=== PATIENT | male | born 1975 | race Caucasian/White ===

== ENCOUNTER 2017-11-12 14:29 | Emergency (ER) | payer MEDICAID, MEDICARE ==
[~2017-11-12] VITALS: Ht 195.6 cm; Wt 138.6 kg
[2017-11-12 16:23] VITALS: BP 150/89
[2017-11-12] MEDS ORDERED: SULF1TAB49 PO (16:58)
[2017-11-12] MEDS ORDERED: CEPH-572 PO (16:58)
== END 2017-11-12 17:21 | disposition home or self-care (01) ==
LOC: ER 14:30
DX: L02.612 Cutaneous abscess of left foot (principal); E10.9 Type 1 diabetes mellitus without complications; J45.909 Unspecified asthma, uncomplicated; F12.90 Cannabis use, unspecified, uncomplicated; Z90.49 Acquired absence of other specified parts of digestive tract; Z88.0 Allergy status to penicillin; Z79.2 Long term (current) use of antibiotics
CPT/HCPCS: 82948; 99283

== ENCOUNTER 2018-10-07 14:54 | Inpatient (IN) | payer MEDICAID ==
[~2018-10-07] VITALS: Ht 195.6 cm; Wt 159.1 kg
[2018-10-07] MEDS ORDERED: morphine 4 MG/ML inj SYRINge IV PRN (15:10)
[2018-10-07] MEDS ORDERED: ondansetron/PF 4mg/2ml inj IV ONE (15:10)
[2018-10-07 15:42] LABS: BASOPHILS % (AUTO) 0.3 % (0-1); EOSINOPHILS % (AUTO) 0.1 % (0-6); HEMATOCRIT 26.5 % (42.0-52.0); HEMOGLOBIN 8.9 g/dl (14.0-17.9); LYMPHOCYTES # (AUTO) 1.1 X10'3 (1.1-4.8); LYMPHOCYTES % (AUTO) 8.6 % (21-51); MEAN CORPUSCULAR HEMOGLOBIN 30.3 PG (27.0-31.0); MEAN CORPUSCULAR HGB CONC 33.6 g/dL (33.0-36.5); MEAN CORPUSCULAR VOLUME 90.3 FL (78-98); MEAN PLATELET VOLUME 8.1 FL (7.4-10.4); MONOCYTES # (AUTO) 1.3 X10'3 (0-0.9); MONOCYTES % (AUTO) 9.6 % (2-12); NEUTROPHILS # (AUTO) 10.7 X10'3 (1.8-7.7); NEUTROPHILS % (AUTO) 81.4 % (42-75); PLATELET COUNT 208 X10'3 (140-440); RED BLOOD COUNT 2.94 X10'6 (4.70-6.10); RED CELL DISTRIBUTION WIDTH 13.8 % (11.5-14.5); WHITE BLOOD COUNT 13.2 X10'3 (4.5-11.0)
[2018-10-07 15:59] LABS: ALANINE AMINOTRANSFERASE 18 U/L (12-78); ALBUMIN 1.7 G/DL (3.4-5.0); ALBUMIN/GLOBULIN RATIO 0.4 (1.1-1.5); ALKALINE PHOSPHATASE 68 IU/L (46-116); ANION GAP 11 (8-16); ASPARTATE AMINO TRANSFERASE 10 U/L (10-37); BILIRUBIN,TOTAL 0.5 MG/DL (0.1-1.0); BLOOD UREA NITROGEN 44 MG/DL (7-18); BUN/CREATININE RATIO 14.1 (5.4-32.0); CALCIUM 7.3 MG/DL (8.5-10.1); CHLORIDE 103 MMOL/L (99-107); CREATININE 3.13 MG/DL (0.60-1.10); GLUCOSE 328 MG/DL (70-104); POTASSIUM 4.5 MMOL/L (3.5-5.1); SODIUM 131 MMOL/L (135-145); TOTAL CARBON DIOXIDE 17.5 MMOL/L (24-32); TOTAL PROTEIN 6.2 G/DL (6.4-8.2); eGFR 22 ML/MIN
[2018-10-07] MEDS ORDERED: INSU100V9 SQ (16:25)
[2018-10-07] MEDS ORDERED: IPRA4AER IH (16:25)
[2018-10-07] MEDS ORDERED: LOSA50TA64 PO (16:25)
[2018-10-07] MEDS ORDERED: LIDO35.4 TOP (16:25)
[2018-10-07] MEDS ORDERED: FLUT1AER4 IH (16:25)
[2018-10-07] MEDS ORDERED: RANI-648 PO (16:25)
[2018-10-07] MEDS ORDERED: INSU100V5 SQ (16:25)
[2018-10-07] MEDS ORDERED: ATRIN IH (16:25)
[2018-10-07] MEDS ORDERED: ALBU8HFA PO (16:25)
[2018-10-07] MEDS ORDERED: potassium CL 10mEq/100ml bag 100 ML IV PRN ×2 (18:00)
[2018-10-07] MEDS ORDERED: magnesium 4gm in 100ml NS 100 ML IV PRN (18:00)
[2018-10-07] MEDS ORDERED: morphine 2 MG/ML inj. syringe IV PRN ×2 (18:00)
[2018-10-07] MEDS ORDERED: MESSAGE TO PHARMACY PO ONE ×2 (18:00)
[2018-10-07] MEDS ORDERED: magnesium Cl slow-release 64mg tablet PO PRN (18:00)
[2018-10-07] MEDS ORDERED: magnesium 2GM in 50ml NS 50 ML IV PRN (18:00)
[2018-10-07] MEDS ORDERED: glucagon, human recombinant 1mg kit SUBCUT PRN ×2 (18:00)
[2018-10-07] MEDS ORDERED: insulin Lispro (HumaLOG) vial - multi-dose SQ SCH (18:00)
[2018-10-07] MEDS ORDERED: dextrose ORAL solution 15 GM/59 ML bottle PO PRN ×4 (18:00)
[2018-10-07] MEDS ORDERED: potassium Cl 20 mEq SR tablet PO PRN ×2 (18:00)
[2018-10-07] MEDS ORDERED: dextrose 50%-water 50ml dispensing syringe IV PRN ×4 (18:00)
[2018-10-07 18:09] LABS: HEMOGLOBIN A1C 8.7 % (4.5-6.2)
[2018-10-07 18:42] LABS: LIPASE 985 U/L (73-393)
[2018-10-07] MEDS: vancomycin/NS 1 GM ADD-VANTAGE 250 ML IV SCH ×2 (19:05→21:25)
[2018-10-07] MEDS: normal saline 1000ml 1,000 ML IV SCH (19:05)
[2018-10-07] MEDS: ondansetron/PF 4mg/2ml inj IV PRN (19:30)
--- NOTE | 2018-10-07 19:49 | NUR ---
MOTHER CALLED FOR UPDATE. PHONE CALL TRANSFERRED TO BEDSIDE SO PT COULD UPDATE MOTHER. ADVISED MOTHER I WOULD BE HAPPY TO UPDATE HER BUT THAT I HAVE TO HAVE PTS CONSENT FIRST.
[2018-10-07] MEDS ORDERED: insulin glargine (Lantus) pen - multi-dose SQ SCH ×2 (21:00)
[2018-10-07] MEDS: heparin, porcine 5000 units/ml vial SQ SCH (21:35)
[2018-10-07 22:00] VITALS: BP 156/81
[2018-10-07] MEDS: pantoprazole 40mg Tablet.DR PO SCH (23:15)
[2018-10-08] MEDS: piperacillin/tazo 3.375gm/50ml 50 ML IV SCH ×3 (00:50→16:23)
[2018-10-08 03:00] VITALS: BP 139/74
[2018-10-08] MEDS: normal saline 1000ml 1,000 ML IV SCH ×3 (04:50→16:48)
[2018-10-08 05:18] LABS: BASOPHILS % (AUTO) 0.2 % (0-1); EOSINOPHILS % (AUTO) 0 % (0-6); HEMATOCRIT 27.2 % (42.0-52.0); HEMOGLOBIN 9.2 g/dl (14.0-17.9); LYMPHOCYTES # (AUTO) 1.2 X10'3 (1.1-4.8); LYMPHOCYTES % (AUTO) 10.4 % (21-51); MEAN CORPUSCULAR HEMOGLOBIN 30.3 PG (27.0-31.0); MEAN CORPUSCULAR HGB CONC 33.9 g/dL (33.0-36.5); MEAN CORPUSCULAR VOLUME 89.5 FL (78-98); MEAN PLATELET VOLUME 7.7 FL (7.4-10.4); MONOCYTES # (AUTO) 1.1 X10'3 (0-0.9); MONOCYTES % (AUTO) 9.8 % (2-12); NEUTROPHILS # (AUTO) 9.1 X10'3 (1.8-7.7); NEUTROPHILS % (AUTO) 79.6 % (42-75); PLATELET COUNT 230 X10'3 (140-440); RED BLOOD COUNT 3.04 X10'6 (4.70-6.10); WHITE BLOOD COUNT 11.4 X10'3 (4.5-11.0)
[2018-10-08 05:22] LABS: ALBUMIN 1.5 G/DL (3.4-5.0); ANION GAP 12 (8-16); BLOOD UREA NITROGEN 42 MG/DL (7-18); BUN/CREATININE RATIO 15.7 (5.4-32.0); CALCIUM 8.5 MG/DL (8.5-10.1); CHLORIDE 107 MMOL/L (99-107); CREATININE 2.68 MG/DL (0.60-1.10); GLUCOSE 327 MG/DL (70-104); MAGNESIUM 2.1 MG/DL (1.5-2.4); POTASSIUM 4.6 MMOL/L (3.5-5.1); SODIUM 135 MMOL/L (135-145); TOTAL CARBON DIOXIDE 15.7 MMOL/L (24-32); eGFR 26 ML/MIN
[2018-10-08 07:08] VITALS: BP 145/77
[2018-10-08] MEDS: K and/or MAG REPLACEMENT MC SCH (07:14)
[2018-10-08] MEDS: heparin, porcine 5000 units/ml vial SQ SCH ×2 (07:23→19:08)
[2018-10-08] MEDS: pantoprazole 40mg Tablet.DR PO SCH (07:23)
[2018-10-08] MEDS: insulin Lispro (HumaLOG) vial - multi-dose SQ SCH ×4 (08:39→21:58)
[2018-10-08 11:00] VITALS: BP 150/70
[2018-10-08] MEDS: albuterol 2.5 MG/3 ML nebule NEB PRN ×2 (11:16→19:35)
--- NOTE | 2018-10-08 11:48 | NUR ---
PAGER ID: [phone] MESSAGE: Raul Escobedo. Would you like me to put in an order for MRI? Please clarify. Leigh [phone]
--- NOTE | 2018-10-08 14:01 | NUR ---
PAGER ID: [phone] MESSAGE: [id number]. central lab technician called and the patient is over the weight limit for the MRI table so it cannot be done. Leigh Lara.
[2018-10-08 15:00] VITALS: BP 141/77
--- NOTE | 2018-10-08 15:19 | NUR ---
PRESSURE ULCER EDUCATION: DEFINITION: A pressure ulcer is an area of skin that breaks down when you stay in one position too long. The constant pressure against the skin reduces the blood flow to that area and the affected tissue dies. CAUSES: "Being bedridden or in a wheelchair "Fragile skin "Having a chronic condition, such as diabetes or vascular disease "Inability to move certain parts of your body without assistance "Older age "Incontinence of urine or stool SYMPTOMS: "A reddened area that DOES NOT turn white when pressed on - this can be the beginning of a pressure ulcer "A blister, deep sore or a crater - these can be advanced pressure ulcers FIRST AID: "Relieve the pressure on this area "Keep the area clean and dry "Call your primary doctor if you see any of the above symptoms "DO NOT massage the area "DO NOT use a donut shaped or ring shaped pillow- these actually interfere with the blood flow and cause complications PREVENTION: "Check for pressure ulcers everyday "Change position at least every two hours to relieve pressure "Use items that help relieve pressure- pillows, sheepskin, foam padding, and powders. "Keep skin clean and dry "Eat healthy well balanced meals "Exercise daily IF YOU SEE ANY OF THESE SYMPTOMS WHILE IN THE HOSPITAL - TELL YOUR NURSE IMMEDIATELY. IF YOU SEE ANY OF THESE SYMPTOMS WHILE AT HOME OR HAVE ANY QUESTIONS OR CONCERNS ABOUT PRESSURE ULCERS - CALL YOUR PRIMARY DOCTOR IMMEDIATELY. Addendum: 10/08/18 at 1519 by Tammie Mccarthy RN Amended: Links added.
--- NOTE | 2018-10-08 17:55 | NUR ---
DM consult, A1c of 8.7, patient seen at bedside and given written DM education handout with verbal review and referral to outpatient DM education class on Friday. Patient reports that he allows his BG to be elevated sometimes in order to fall asleep at night, strongly advised against this practice. Pt reports his A1c two years ago was over 17, compared to his A1c now he has improved it greatly. Encouraged patient to continue his insulin routine using, which is using both short and long acting insulin, pt also check BG before every meal and after every meal. Encouraged exercise for enhanced BG control. Patient has okay appetite, interested in cottage cheese with breakfast and milk with all meals for protein, d/w dietary. Encouraged PO intake of protein in view of his infection. Per MD note patient admitted with sepsis, right foot cellulitis, PRISCILA, h/o HTM and IDDM. Per H&P pt had transmetatarsal foot amputation six months ago, is reddened. Reports diarrhea for 4 days and unable to keep food down, will vomit or BM when he tries to eat, however does report that he is able to hold down food today and no BM yet today. Recommend: 1. continue carb controlled, heart healthy diet 2. cottage cheese with breakfast, yogurt with dinner, milk all meals 3. weight per rx Addendum: 10/08/18 at [address] Amended: Links added.
--- NOTE | 2018-10-08 17:58 | NUR ---
Rm 3015, Raul. Patient having trouble breathing, and coughing would like breathing treatment tamara. Thank you.
--- NOTE | 2018-10-08 18:19 | NUR ---
Problems reprioritized. Patient report given, questions answered & plan of care reviewed with Cindy PENNINGTON. Patient stable at transfer of care.
[2018-10-08 19:00] VITALS: BP 155/79
[2018-10-08] MEDS: lactobacillus rhamnosus 10,000 MMU CELLS/CAPSULE PO SCH (19:08)
[2018-10-08] MEDS: acetaminophen 325mg tablet PO PRN (19:18)
--- NOTE | 2018-10-08 21:48 | NUR ---
PAGER ID: [phone] MESSAGE: Patient Steve Carter in room 9421D states he normally takes 30 units of long acting Lantus when at home. Should I follow protocol or adhere to his normal administered units amount. [facility] Cindy [phone]
[2018-10-08] MEDS: insulin glargine (Lantus) pen - multi-dose SQ SCH (22:26)
[2018-10-08 23:00] VITALS: BP 150/72
[2018-10-09] MEDS: piperacillin/tazo 3.375gm/50ml 50 ML IV SCH ×3 (00:42→16:01)
[2018-10-09] MEDS: normal saline 1000ml 1,000 ML IV SCH ×3 (00:42→21:23)
[2018-10-09 03:00] VITALS: BP 156/77
[2018-10-09] MEDS: albuterol 2.5 MG/3 ML nebule NEB PRN ×3 (03:18→16:17)
[2018-10-09] MEDS: acetaminophen 325mg tablet PO PRN ×4 (04:00→22:09)
[2018-10-09 05:48] LABS: BASOPHILS % (AUTO) 0.3 % (0-1); EOSINOPHILS % (AUTO) 0.4 % (0-6); HEMATOCRIT 24.3 % (42.0-52.0); HEMOGLOBIN 8.3 g/dl (14.0-17.9); LYMPHOCYTES % (AUTO) 10.7 % (21-51); MEAN CORPUSCULAR HEMOGLOBIN 30.9 PG (27.0-31.0); MEAN PLATELET VOLUME 8.2 FL (7.4-10.4); MONOCYTES % (AUTO) 10.6 % (2-12); NEUTROPHILS # (AUTO) 7.6 X10'3 (1.8-7.7); PLATELET COUNT 205 X10'3 (140-440); RED BLOOD COUNT 2.67 X10'6 (4.70-6.10); RED CELL DISTRIBUTION WIDTH 14.1 % (11.5-14.5); WHITE BLOOD COUNT 9.8 X10'3 (4.5-11.0)
[2018-10-09 05:52] LABS: ALBUMIN 1.3 G/DL (3.4-5.0); ANION GAP 13 (8-16); BLOOD UREA NITROGEN 36 MG/DL (7-18); BUN/CREATININE RATIO 13.7 (5.4-32.0); CALCIUM 7.7 MG/DL (8.5-10.1); CHLORIDE 104 MMOL/L (99-107); CREATININE 2.62 MG/DL (0.60-1.10); GLUCOSE 254 MG/DL (70-104); MAGNESIUM 1.8 MG/DL (1.5-2.4); POTASSIUM 4.2 MMOL/L (3.5-5.1); SODIUM 131 MMOL/L (135-145); eGFR 27 ML/MIN
--- NOTE | 2018-10-09 06:00 | NUR ---
Patient refused VS.
--- NOTE | 2018-10-09 06:12 | NUR ---
MD notified about critical CO2 level of 14.0. MD ordered to continue to monitor as long as pt was asymptomatic.
--- NOTE | 2018-10-09 06:15 | NUR ---
Problems reprioritized. Patient report given, questions answered & plan of care reviewed with ADITI Baltazar.
--- NOTE | 2018-10-09 06:57 | NUR ---
Patient in room PCU 3015. I have received report from ADITI White and had the opportunity to ask questions and assume patient care.
--- NOTE | 2018-10-09 07:15 | NUR ---
Patient got up to commode to have large soft BM, not diarrhea. Pulled IV out in the process. Site not currently bleeding. Patient is a difficult IV start - PICC nurse paged. IV antibiotics scheduled, unable to give due to no IV.
[2018-10-09] MEDS: K and/or MAG REPLACEMENT MC SCH (08:00)
[2018-10-09] MEDS: pantoprazole 40mg Tablet.DR PO SCH (08:23)
[2018-10-09] MEDS: heparin, porcine 5000 units/ml vial SQ SCH ×2 (08:23→20:11)
[2018-10-09] MEDS: lactobacillus rhamnosus 10,000 MMU CELLS/CAPSULE PO SCH ×2 (08:23→20:10)
[2018-10-09] MEDS: insulin Lispro (HumaLOG) vial - multi-dose SQ SCH ×3 (08:41→19:05)
--- NOTE | 2018-10-09 09:10 | NUR ---
Dr Pearce would like to see wound on patient. Current dressing removed, assessed by MD. New dressing placed with alginate, 4x4, and gauze wrap. Pt c/o pain, wants tylenol instead of morphine for pain, notified MD of pt request. Noticed that patient has Zantec at bedside, educated pt of dangers of taking home medications while in the hospital including risk of interactions with medications administered here and that for patient to keep medication at bedside would need an order from MD, pt verbalized understanding. Notified primary RN as MD not immediately available, she will notify MD.
--- NOTE | 2018-10-09 09:30 | NUR ---
MD informed that patient has Zantac at bedside. Patient refuses to comply with policy that it is not allowed. MD aware.
--- NOTE | 2018-10-09 09:30 | NUR ---
informed that patient is positive for MRSA in his nares. No new orders recieved.
--- NOTE | 2018-10-09 09:44 | NUR ---
Message sent to - [phone] MESSAGE: Raul Huang # [phone] Requests Tylenol for pain. Currently only ordered for elevated temp. Has Morphine ordered but is refusing narcotics. Thank you - FAMILIA Baltazar, EXT# [phone]
[2018-10-09] MEDS ORDERED: famotidine 20mg tablet PO PRN (10:00)
--- NOTE | 2018-10-09 10:27 | NUR ---
IV antibiotics hung at this time due to no IV access earlier. Pharmacy called and notified.
[2018-10-09 11:00] VITALS: BP 131/65
--- NOTE | 2018-10-09 11:00 | NUR ---
I SPOKE TO PT REGARDING TAGAMET TABLETS HE HAS AT THE BEDSIDE. I INFORMED HIM THAT IS WAS REQUESTED TO DO SO BY DR OSBORN. HE INFORMED ME THAT HE IS NO LONGER TAKING THOSE AND HAS PUT THEM AWAY IN THE DRAWER. I EXPLAINED THE POLICY OF TAKING MEDICATION NOT PRESCRIBED BY THE DOCTOR IS NOT ALLOWED. HE STATED THAT HE UNDERSTOOD AND WILL NOT TAKE THEM. I WAS ACCOMPANIED BY PT ADITI HSIEH. Addendum: 10/09/18 at 1430 by Bobbi Douglas RN Amended: Links added.
--- NOTE | 2018-10-09 13:56 | NUR ---
PT 303 BS PRIOR TO LUNCH. PT COVERED WITH 27 UNITS OF HUMALOG POST LUNCH. I RECEIVED AN ANGRY PHONE CALL FROM PT MOTHER STATING THAT PT BS WAS 335 AND WE WE ARE REFUSING TO GIVE HIM ENOUGH INSULIN TO BRING IT DOWN. I INFORMED MOTHER THAT: THAT IS NOT TRUE, [facility] IS AN ACCREDITED DI[facility]ET[facility], RECOGNIZED BY THE [employer]. SHE THEN STATED IN A THREATENING MANNER " IM COMING DOWN THERE TOMORROW AND YOUR GONNA...". I THEN INFORMED HER TO COME HERE ANYTIME AND WE CAN DISCUSS IT FURTHER. Addendum: 10/09/18 at 1403 by Bobbi Douglas RN Amended: Links added.
--- NOTE | 2018-10-09 14:21 | NUR ---
Patient's bedside drawer is open and he has a roll of toilet paper in there that is soiled with feces. Roll was discarded and patient advised.
[2018-10-09 15:00] VITALS: BP 184/78
[2018-10-09 18:00] VITALS: BP 146/75
--- NOTE | 2018-10-09 18:09 | NUR ---
Problems reprioritized. Patient report given, questions answered & plan of care reviewed with ADITI White.
[2018-10-09] MEDS: budesonide 0.5mg/2ml UD nebule IH SCH (20:53)
[2018-10-09] MEDS: albuterol 2.5 MG/3 ML nebule NEB SCH (20:53)
[2018-10-09 22:00] VITALS: BP 149/70
[2018-10-09] MEDS: insulin glargine (Lantus) pen - multi-dose SQ SCH (22:13)
--- NOTE | 2018-10-10 | NUR ---
Patient called out for help. Assigned nurse quickly responded to patient. When nurse entered room two separate pools of blood was found to have oozed out of patient's right foot wound. The total amount of blood was approx. 100ccs. Patient stated that he had sat up to use the urinal and observed the pool of blood. Pt unsure how it began bleeding. Wound care dressing was replaced as ordered. Pt was educated to call nurse once again if bleeding was observed. Will continue to monitor closely.
[2018-10-10] MEDS: piperacillin/tazo 3.375gm/50ml 50 ML IV SCH ×3 (00:37→16:46)
[2018-10-10 02:00] VITALS: BP 111/70
[2018-10-10] MEDS: albuterol 2.5 MG/3 ML nebule NEB SCH ×4 (03:27→21:15)
[2018-10-10] MEDS: acetaminophen 325mg tablet PO PRN ×3 (03:52→18:50)
[2018-10-10] MEDS: normal saline 1000ml 1,000 ML IV SCH ×3 (05:20→18:48)
[2018-10-10 05:44] LABS: ALBUMIN 1.2 G/DL (3.4-5.0); ANION GAP 15 (8-16); BLOOD UREA NITROGEN 38 MG/DL (7-18); BUN/CREATININE RATIO 11.9 (5.4-32.0); CALCIUM 7.9 MG/DL (8.5-10.1); CHLORIDE 105 MMOL/L (99-107); GLUCOSE 205 MG/DL (70-104); POTASSIUM 4.3 MMOL/L (3.5-5.1); SODIUM 134 MMOL/L (135-145); eGFR 21 ML/MIN
[2018-10-10 05:51] LABS: TOTAL CARBON DIOXIDE 13.9 MMOL/L (24-32)
--- NOTE | 2018-10-10 05:57 | NUR ---
Adam observed patient place three medications on the table. Upon expectation, the three pills observed seemed to be slightly dissolved melatonin and hydralazine. Addendum: 10/10/18 at 0559 by Loida Trevino RN Wrong patient.
[2018-10-10 06:00] VITALS: BP 88/59
[2018-10-10 06:04] LABS: BASOPHILS # (AUTO) 0.1 X10'3 (0-0.2); BASOPHILS % (AUTO) 0.4 % (0-1); EOSINOPHILS # (AUTO) 0.1 X10'3 (0-0.9); EOSINOPHILS % (AUTO) 0.7 % (0-6); HEMATOCRIT 26.3 % (42.0-52.0); HEMOGLOBIN 8.6 g/dl (14.0-17.9); LYMPHOCYTES # (AUTO) 1.7 X10'3 (1.1-4.8); LYMPHOCYTES % (AUTO) 11.9 % (21-51); MEAN CORPUSCULAR HGB CONC 32.8 g/dL (33.0-36.5); MEAN CORPUSCULAR VOLUME 91.4 FL (78-98); MEAN PLATELET VOLUME 7.9 FL (7.4-10.4); MONOCYTES # (AUTO) 1.5 X10'3 (0-0.9); MONOCYTES % (AUTO) 10.9 % (2-12); NEUTROPHILS # (AUTO) 10.6 X10'3 (1.8-7.7); NEUTROPHILS % (AUTO) 76.1 % (42-75); PLATELET COUNT 271 X10'3 (140-440); RED BLOOD COUNT 2.88 X10'6 (4.70-6.10); RED CELL DISTRIBUTION WIDTH 14.3 % (11.5-14.5); WHITE BLOOD COUNT 13.9 X10'3 (4.5-11.0)
--- NOTE | 2018-10-10 06:09 | NUR ---
notified of critical CO2 level of 13.9.
--- NOTE | 2018-10-10 06:18 | NUR ---
Patient in room PCU 3015. I have received report from amanda PENNINGTON and had the opportunity to ask questions and assume patient care.
--- NOTE | 2018-10-10 06:46 | NUR ---
Problems reprioritized. Patient report given, questions answered & plan of care reviewed with ADITI De La Cruz.
[2018-10-10 07:00] VITALS: BP 122/64
[2018-10-10 07:12] LABS: PLATELET ESTIMATE NORMAL; TOTAL CELLS COUNTED 100
[2018-10-10 07:13] LABS: ANISOCYTOSIS 1+
[2018-10-10] MEDS: budesonide 0.5mg/2ml UD nebule IH SCH ×2 (07:25→09:29)
[2018-10-10] MEDS: pantoprazole 40mg Tablet.DR PO SCH (07:31)
[2018-10-10] MEDS: lactobacillus rhamnosus 10,000 MMU CELLS/CAPSULE PO SCH ×2 (07:31→19:06)
[2018-10-10] MEDS: heparin, porcine 5000 units/ml vial SQ SCH ×2 (07:31→19:06)
[2018-10-10] MEDS: K and/or MAG REPLACEMENT MC SCH (08:00)
[2018-10-10] MEDS: losartan 50mg tablet PO SCH (08:00)
[2018-10-10] MEDS: insulin Lispro (HumaLOG) vial - multi-dose SQ SCH ×3 (09:17→18:57)
[2018-10-10] MEDS: albuterol 2.5 MG/3 ML nebule NEB PRN ×2 (09:28→17:21)
[2018-10-10 15:00] VITALS: BP 131/63
--- NOTE | 2018-10-10 18:12 | NUR ---
Problems reprioritized. Patient report given, questions answered & plan of care reviewed with amanda PENNINGTON.
[2018-10-10] MEDS ORDERED: VANCOMYCIN LEVEL IV ONE (18:30)
[2018-10-10 19:00] VITALS: BP 150/78
--- NOTE | 2018-10-10 19:59 | NUR ---
Critical Vanco trough of 43.6. Pharmacy ordered to stop Vanco with only 172 mLs given out of the 300 mLs.
[2018-10-10] MEDS: insulin glargine (Lantus) pen - multi-dose SQ SCH (21:55)
[2018-10-10 23:00] VITALS: BP 146/68
[2018-10-11] MEDS: piperacillin/tazo 3.375gm/50ml 50 ML IV SCH ×3 (00:35→23:55)
[2018-10-11] MEDS: acetaminophen 325mg tablet PO PRN ×4 (00:36→19:17)
[2018-10-11] MEDS: albuterol 2.5 MG/3 ML nebule NEB SCH ×4 (01:44→20:58)
[2018-10-11 03:00] VITALS: BP 126/65
[2018-10-11] MEDS: albuterol 2.5 MG/3 ML nebule NEB PRN (04:45)
[2018-10-11] MEDS: normal saline 1000ml 1,000 ML IV SCH (05:15)
--- NOTE | 2018-10-11 06:20 | NUR ---
Problems reprioritized. Patient report given, questions answered & plan of care reviewed with ADITI De La Cruz.
--- NOTE | 2018-10-11 06:20 | NUR ---
When coming on shift patients IV fluids were infusing but arm is more swollen than the right arm. Patient stated that the IV sight is tender. I assessed it and turned off the fluids that were infusing. Doctor adriano was notified. Dr. Pearce wants a new extended in the Right arm.
--- NOTE | 2018-10-11 06:40 | NUR ---
Patient in room PCU 3015 B. I have received report from Cindy PENNINGTON and had the opportunity to ask questions and assume patient care.
--- NOTE | 2018-10-11 06:41 | NUR ---
Patient in room PCU 3015. I have received report from Cindy PENNINGTON and had the opportunity to ask questions and assume patient care.
[2018-10-11 06:50] LABS: ALBUMIN 1.3 G/DL (3.4-5.0); ANION GAP 15 (8-16); BLOOD UREA NITROGEN 49 MG/DL (7-18); BUN/CREATININE RATIO 13.7 (5.4-32.0); CHLORIDE 104 MMOL/L (99-107); CREATININE 3.57 MG/DL (0.60-1.10); GLUCOSE 215 MG/DL (70-104); MAGNESIUM 2.1 MG/DL (1.5-2.4); POTASSIUM 4.4 MMOL/L (3.5-5.1); SODIUM 133 MMOL/L (135-145); eGFR 19 ML/MIN
[2018-10-11 07:00] VITALS: BP 149/73
[2018-10-11] MEDS ORDERED: VANCOMYCIN LEVEL IV ONE (07:05)
--- NOTE | 2018-10-11 07:18 | NUR ---
promotional table spacer PAGER ID: [phone] MESSAGE: [id number] critical CO2 14.0 yesterday Co2 13.9 Dorothy PENNINGTON [phone]
[2018-10-11] MEDS: lactobacillus rhamnosus 10,000 MMU CELLS/CAPSULE PO SCH ×2 (07:49→19:05)
[2018-10-11] MEDS: pantoprazole 40mg Tablet.DR PO SCH (07:49)
[2018-10-11] MEDS: losartan 50mg tablet PO SCH (07:49)
[2018-10-11] MEDS: heparin, porcine 5000 units/ml vial SQ SCH ×2 (08:00→19:08)
[2018-10-11] MEDS: K and/or MAG REPLACEMENT MC SCH (08:00)
[2018-10-11] MEDS: budesonide 0.5mg/2ml UD nebule IH SCH ×2 (08:17→20:58)
[2018-10-11 10:15] LABS: BASOPHILS # (AUTO) 0.1 X10'3 (0-0.2); BASOPHILS % (AUTO) 0.5 % (0-1); EOSINOPHILS # (AUTO) 0.2 X10'3 (0-0.9); EOSINOPHILS % (AUTO) 1.2 % (0-6); HEMATOCRIT 23.3 % (42.0-52.0); HEMOGLOBIN 7.8 g/dl (14.0-17.9); LYMPHOCYTES % (AUTO) 12.7 % (21-51); MEAN CORPUSCULAR HEMOGLOBIN 30.5 PG (27.0-31.0); MEAN CORPUSCULAR HGB CONC 33.6 g/dL (33.0-36.5); MEAN CORPUSCULAR VOLUME 90.7 FL (78-98); MEAN PLATELET VOLUME 7.2 FL (7.4-10.4); MONOCYTES # (AUTO) 1.5 X10'3 (0-0.9); MONOCYTES % (AUTO) 9.6 % (2-12); PLATELET COUNT 307 X10'3 (140-440); RED BLOOD COUNT 2.56 X10'6 (4.70-6.10); RED CELL DISTRIBUTION WIDTH 14.5 % (11.5-14.5); WHITE BLOOD COUNT 15.7 X10'3 (4.5-11.0)
--- NOTE | 2018-10-11 10:53 | NUR ---
Notified MD of critical brizuela PAGER ID: [phone] MESSAGE: [id number] Matt Carter [facility] [place] of 46.6, FYIDez Feng 3140
[2018-10-11 11:00] VITALS: BP 161/78
[2018-10-11 11:02] LABS: PLATELET ESTIMATE NORMAL; TOTAL CELLS COUNTED 100
[2018-10-11 11:04] LABS: HYPOCHROMASIA 1+; POLYCHROMASIA 1+; ROULEAUX 1+; TOXIC GRANULATION 2+
[2018-10-11] MEDS: insulin Lispro (HumaLOG) vial - multi-dose SQ SCH ×3 (12:06→21:35)
--- NOTE | 2018-10-11 13:56 | NUR ---
reassessment: Pt PO improved to 50-75% avg meals past 2 days up from 0% on admit. LBM 10/10. Pending possible AKA since pt agrees per MD note. Currently NPO for I&D of R foot cellulitis drain site. Will monitor for additional protein needs post-op. Recommend: 1. continue carb controlled, heart healthy diet 2. cottage cheese with breakfast, yogurt with dinner, milk all meals 3. monitor for ONS needs post-op 4. weight per rx Addendum: 10/11/18 at [address] Amended: Links added.
[2018-10-11 15:00] VITALS: BP 148/75
[2018-10-11 18:00] VITALS: BP 146/70
--- NOTE | 2018-10-11 18:15 | NUR ---
Patient in room PCU 3015. I have received report from Dorothy PENNINGTON and had the opportunity to ask questions and assume patient care.
--- NOTE | 2018-10-11 18:45 | NUR ---
Problems reprioritized. Patient report given, questions answered & plan of care reviewed with Elsa Rebolledo.
[2018-10-11] MEDS: insulin glargine (Lantus) pen - multi-dose SQ SCH (21:35)
[2018-10-11 22:00] VITALS: BP 141/77
[2018-10-12] VITALS (16 sets, daily range): BP systolic 132–161; BP diastolic 8–80
[2018-10-12] MEDS: acetaminophen 325mg tablet PO PRN ×3 (02:11→19:24)
[2018-10-12] MEDS ORDERED: VANCOMYCIN LEVEL IV ONE (03:00)
[2018-10-12] MEDS: albuterol 2.5 MG/3 ML nebule NEB SCH ×4 (03:15→20:00)
--- NOTE | 2018-10-12 06:23 | NUR ---
Patient in room PCU 3015. I have received report from Elsa PENNINGTON and had the opportunity to ask questions and assume patient care.
--- NOTE | 2018-10-12 06:33 | NUR ---
Problems reprioritized. Patient report given, questions answered & plan of care reviewed with Dorothy PENNINGTON.
[2018-10-12 07:03] LABS: BASOPHILS # (AUTO) 0.1 X10'3 (0-0.2); BASOPHILS % (AUTO) 0.5 % (0-1); EOSINOPHILS # (AUTO) 0.2 X10'3 (0-0.9); EOSINOPHILS % (AUTO) 1.2 % (0-6); HEMATOCRIT 25.1 % (42.0-52.0); HEMOGLOBIN 8.4 g/dl (14.0-17.9); LYMPHOCYTES # (AUTO) 1.9 X10'3 (1.1-4.8); LYMPHOCYTES % (AUTO) 11.1 % (21-51); MEAN CORPUSCULAR HEMOGLOBIN 30.1 PG (27.0-31.0); MEAN CORPUSCULAR HGB CONC 33.4 g/dL (33.0-36.5); MEAN CORPUSCULAR VOLUME 90.2 FL (78-98); MONOCYTES # (AUTO) 1.4 X10'3 (0-0.9); MONOCYTES % (AUTO) 8.3 % (2-12); NEUTROPHILS # (AUTO) 13.2 X10'3 (1.8-7.7); NEUTROPHILS % (AUTO) 78.9 % (42-75); PLATELET COUNT 361 X10'3 (140-440); RED BLOOD COUNT 2.79 X10'6 (4.70-6.10); RED CELL DISTRIBUTION WIDTH 14.8 % (11.5-14.5); WHITE BLOOD COUNT 16.8 X10'3 (4.5-11.0)
[2018-10-12] MEDS: lactobacillus rhamnosus 10,000 MMU CELLS/CAPSULE PO SCH ×2 (07:06→19:30)
[2018-10-12] MEDS: pantoprazole 40mg Tablet.DR PO SCH (07:06)
[2018-10-12] MEDS: losartan 50mg tablet PO SCH (07:06)
[2018-10-12] MEDS: piperacillin/tazo 3.375gm/50ml 50 ML IV SCH ×3 (07:06→17:13)
--- NOTE | 2018-10-12 07:10 | NUR ---
Dr. Pearce is aware of the critical CO2 of 13.4 today spoke in person at nurses station.
[2018-10-12] MEDS: budesonide 0.5mg/2ml UD nebule IH SCH ×2 (07:55→20:00)
[2018-10-12] MEDS: K and/or MAG REPLACEMENT MC SCH (08:00)
[2018-10-12] MEDS: heparin, porcine 5000 units/ml vial SQ SCH ×2 (08:00→19:30)
[2018-10-12 08:02] LABS: PLATELET ESTIMATE NORMAL; POLYCHROMASIA 1+; ROULEAUX 1+; TOTAL CELLS COUNTED 100; TOXIC GRANULATION 3+
[2018-10-12 08:03] LABS: HYPOCHROMASIA 1+
[2018-10-12 08:15] LABS: ALBUMIN 1.2 G/DL (3.4-5.0); ANION GAP 15 (8-16); BLOOD UREA NITROGEN 46 MG/DL (7-18); BUN/CREATININE RATIO 15.3 (5.4-32.0); CHLORIDE 107 MMOL/L (99-107); GLUCOSE 193 MG/DL (70-104); MAGNESIUM 2.2 MG/DL (1.5-2.4); POTASSIUM 4.3 MMOL/L (3.5-5.1); SODIUM 135 MMOL/L (135-145); VANCOMYCIN,RANDOM 29.4 UG/ML; eGFR 23 ML/MIN
[2018-10-12 08:22] LABS: TOTAL CARBON DIOXIDE 13.4 MMOL/L (24-32)
[2018-10-12] MEDS ORDERED: famotidine 20mg tablet PO PRN (11:37)
[2018-10-12] MEDS: normal saline 1000ml 1,000 ML IV SCH ×2 (12:23→17:12)
--- NOTE | 2018-10-12 14:24 | NUR ---
Patient taken down to the OR
[2018-10-12] MEDS ORDERED: ringers solution, lacted 1,000 ML IV SCH (14:33)
[2018-10-12] MEDS ORDERED: morphine 4 MG/ML inj SYRINge IV PRN ×2 (14:35)
[2018-10-12] MEDS ORDERED: ondansetron/PF 4mg/2ml inj IV PRN (14:35)
[2018-10-12] MEDS ORDERED: fentaNYL/PF 50MCG/1 ML 2ML syringe IV PRN ×2 (14:35)
[2018-10-12] MEDS ORDERED: labetalol 20mg/4ml (5mg/ml) syringe IV PRN (14:35)
[2018-10-12] MEDS ORDERED: hydrALAZINE 20mg/ml inj. IV PRN (14:35)
[2018-10-12] MEDS ORDERED: fentaNYL/PF 50MCG/1 ML 2ML syringe ONE (15:06)
[2018-10-12] MEDS ORDERED: MIDAZolam 5mg/5ml vial ONE (15:13)
[2018-10-12] MEDS ORDERED: ondansetron/PF 4mg/2ml inj ONE (15:21)
--- NOTE | 2018-10-12 15:48 | NUR ---
Report called and gave to Keven Francis RN
--- NOTE | 2018-10-12 16:24 | NUR ---
Received from OR via SURGICAL BED , accompanied by Anesthesiologist JOHNNA and report given by Anesthesiolgist. PATIENT WITH 2OG PIV IN RIGHT UE RUNNING LR AT 100. DENIES PAIN AT THIS TIME. RIGHT BKA WITH WOUND VAC ON AT LOW CONTINOUS AT 125 MM HG. DENIES PAIN. SPINAL LEVEL AT L2 CURRENTLY. VSS. LEDESMA CATHETER PRESENT WITH CLEAR YELLOW URINE. Addendum: 10/12/18 at 1632 by Steve Huang RN, RN Amended: Links added.
--- NOTE | 2018-10-12 16:32 | NUR ---
BG PRE OP AT 1500 WAS 193. NO ORDERS TO TREAT. Addendum: 10/12/18 at 1638 by Steve Huang RN, RN Amended: Links added.
--- NOTE | 2018-10-12 17:04 | NUR ---
ALL CRITERIA FOR TRANSFER TO THE FLOOR HAS BEEN ACHIEVED. VSS. BED LOW, CALL LIGHT AND VS. SET IN PLACE. RN PRESENT TO ACCEPT CARE. PATIENT RESTING COMFORTABLY IN BED. BELONGINGS SENT WITH PATIENT. DRESSINGS CDI. PATIENT WITH NO LEAKS TO WOUND VAC. LEDESMA CATH INTACT AND PUTTING OUT CLEAR YELLOW URINE. DENIES PAIN. SENSATION LEVEL STILL AT L2 FROM SPINAL ANESTHESIA. INSPECTOR STRUCTURAL BONDING PRESENT TO ASSIST WITH VS SET UP. PATIENT RESTING COMFORTABLY IN BED. SHOOK HANDS AND THANKED THIS NURSE. CARE TURNED OVER TO MATEUSZ PENNINGTON. Addendum: 10/12/18 at 1709 by Steve Huang RN, RN Amended: Links added.
--- NOTE | 2018-10-12 18:30 | NUR ---
Problems reprioritized. Patient report given, questions answered & plan of care reviewed with ADITI Alicia.
--- NOTE | 2018-10-12 18:51 | NUR ---
Patient in room ORTHO 4015. I have received report from ADITI Francis and had the opportunity to ask questions and assume patient care. Addendum: 10/12/18 at 1852 by Maral Andrade RN Amended: Links added.
[2018-10-12] MEDS: insulin Lispro (HumaLOG) vial - multi-dose SQ SCH ×2 (19:29→21:01)
[2018-10-12] MEDS ORDERED: morphine 2 MG/ML inj. syringe IV PRN (19:40)
[2018-10-12] MEDS: morphine 2 MG/ML inj. syringe IV PRN (19:49)
--- NOTE | 2018-10-12 19:49 | NUR ---
Smith catheter removed as ordered. Patient tolerated well. Urinal provided at bedside for patient. Patient verbalized understanding of use. Call light within reach.
--- NOTE | 2018-10-12 20:00 | NUR ---
patient was c/o of severe pain at the beginning of the shift 11/19, s/p Rt. BKA, patient was given tylenol at first and eventually got orders from the Dr. for pain medications and were given to patient with relief.
[2018-10-12] MEDS: HYDROcodone/acetaminophen 10/325mg tab PO PRN (20:56)
[2018-10-12] MEDS: insulin glargine (Lantus) pen - multi-dose SQ SCH (21:02)
[2018-10-12] MEDS ORDERED: temazepam 15mg capsule PO PRN (22:15)
[2018-10-13] VITALS (7 sets, daily range): BP systolic 154–178; BP diastolic 61–88
[2018-10-13] MEDS: morphine 2 MG/ML inj. syringe IV PRN ×2 (00:06→07:37)
[2018-10-13] MEDS: piperacillin/tazo 3.375gm/50ml 50 ML IV SCH ×2 (01:14→07:34)
[2018-10-13] MEDS: albuterol 2.5 MG/3 ML nebule NEB SCH ×4 (02:00→20:39)
[2018-10-13] MEDS ORDERED: VANCOMYCIN LEVEL IV ONE (03:00)
[2018-10-13] MEDS: HYDROcodone/acetaminophen 10/325mg tab PO PRN ×3 (04:05→23:17)
--- NOTE | 2018-10-13 06:34 | NUR ---
Problems reprioritized. Patient report given, questions answered & plan of care reviewed with ADITI Santos.
[2018-10-13 07:04] LABS: MAGNESIUM 2.2 MG/DL (1.5-2.4); VANCOMYCIN,RANDOM 19.1 UG/ML
[2018-10-13] MEDS: pantoprazole 40mg Tablet.DR PO SCH (07:34)
[2018-10-13] MEDS: losartan 50mg tablet PO SCH (07:34)
[2018-10-13] MEDS: lactobacillus rhamnosus 10,000 MMU CELLS/CAPSULE PO SCH ×2 (07:34→20:22)
[2018-10-13] MEDS: K and/or MAG REPLACEMENT MC SCH (07:34)
[2018-10-13] MEDS: heparin, porcine 5000 units/ml vial SQ SCH ×2 (07:35→20:22)
[2018-10-13] MEDS: normal saline 1000ml 1,000 ML IV SCH ×3 (07:35→22:44)
[2018-10-13] MEDS: insulin Lispro (HumaLOG) vial - multi-dose SQ SCH ×3 (08:14→19:09)
[2018-10-13] MEDS: budesonide 0.5mg/2ml UD nebule IH SCH ×2 (08:22→20:39)
--- NOTE | 2018-10-13 14:58 | NUR ---
WOC checked pt's VAC dressing. Dressing in place, intact with MARYCRUZ wrap in place over, VAC has good seal to suction 125mm/hg low continuous suction. Will continue to monitor and change accordingly.
--- NOTE | 2018-10-13 17:50 | NUR ---
PAGER ID: [phone] MESSAGE: ANDREW ALY 3087 JUST CHARISMA BP HAS BEEN RUNNING HIGH- PLEASE VIEW VITALS- NO LABS DRAWN TODAY SINCE AMPUTATION. DEVON
[2018-10-13] MEDS ORDERED: CefTRIAXone/D5W-Rocephin 1gm 50 ML IV ONE (18:00)
[2018-10-13] MEDS ORDERED: hyDRALAzine 10mg tablet PO PRN (18:30)
--- NOTE | 2018-10-13 18:52 | NUR ---
GAVE REPORT TO BECKY PENNINGTON.
[2018-10-13 19:13] LABS: BASOPHILS # (AUTO) 0.1 X10'3 (0-0.2); BASOPHILS % (AUTO) 0.8 % (0-1); EOSINOPHILS # (AUTO) 0.2 X10'3 (0-0.9); EOSINOPHILS % (AUTO) 1.3 % (0-6); HEMATOCRIT 23.9 % (42.0-52.0); HEMOGLOBIN 7.8 g/dl (14.0-17.9); LYMPHOCYTES # (AUTO) 1.9 X10'3 (1.1-4.8); LYMPHOCYTES % (AUTO) 12.3 % (21-51); MEAN CORPUSCULAR HEMOGLOBIN 29.6 PG (27.0-31.0); MEAN CORPUSCULAR HGB CONC 32.6 g/dL (33.0-36.5); MEAN CORPUSCULAR VOLUME 90.9 FL (78-98); MEAN PLATELET VOLUME 6.6 FL (7.4-10.4); MONOCYTES % (AUTO) 6.8 % (2-12); NEUTROPHILS % (AUTO) 78.8 % (42-75); PLATELET COUNT 428 X10'3 (140-440); RED BLOOD COUNT 2.63 X10'6 (4.70-6.10); RED CELL DISTRIBUTION WIDTH 14.9 % (11.5-14.5); WHITE BLOOD COUNT 15.3 X10'3 (4.5-11.0)
[2018-10-13 19:20] LABS: ALBUMIN 1.3 G/DL (3.4-5.0); ANION GAP 11 (8-16); BLOOD UREA NITROGEN 50 MG/DL (7-18); BUN/CREATININE RATIO 14.5 (5.4-32.0); CALCIUM 7.9 MG/DL (8.5-10.1); CHLORIDE 108 MMOL/L (99-107); CREATININE 3.45 MG/DL (0.60-1.10); GLUCOSE 161 MG/DL (70-104); POTASSIUM 4.4 MMOL/L (3.5-5.1); SODIUM 134 MMOL/L (135-145); TOTAL CARBON DIOXIDE 15.3 MMOL/L (24-32); eGFR 19 ML/MIN
[2018-10-13 19:37] LABS: BANDS% (MANUAL) 4 % (0-10); EOSINOPHILS % (MANUAL) 3 % (0-6); LYMPHOCYTES % (MANUAL) 12 % (21-51); METAMYLEOCYTES% (MANUAL) 7 % (0-0); MONOCYTES % (MANUAL) 6 % (2-12); NEUTROPHILS % (MANUAL) 68 % (42-75); PLATELET ESTIMATE NORMAL; TOTAL CELLS COUNTED 100
[2018-10-13 19:38] LABS: HYPOCHROMASIA 1+; POLYCHROMASIA FEW; TOXIC GRANULATION 1+
[2018-10-13] MEDS: insulin glargine (Lantus) pen - multi-dose SQ SCH (21:34)
[2018-10-14] MEDS: VANCOMYCIN LEVEL IV SCH (03:00)
--- NOTE | 2018-10-14 03:35 | NUR ---
pt had emesis. pt declined zofran "It made me sicker the last time you gave it to me" (6 days ago). offered alternative - pt requested his home zantac - pepcid ordered here. pt took gladly. no further calls at this time.
--- NOTE | 2018-10-14 03:51 | NUR ---
talked with Sosa in Rx - vanco random order trough waiting for levels less than 15. recheck in am.
[2018-10-14 06:00] VITALS: BP 157/83
--- NOTE | 2018-10-14 06:25 | NUR ---
reported to days. noted pt resting. anticipate working with PT today hoping to go home when stable.
[2018-10-14 06:37] LABS: ALBUMIN 1.2 G/DL (3.4-5.0); ANION GAP 13 (8-16); BASOPHILS % (AUTO) 0.3 % (0-1); BLOOD UREA NITROGEN 49 MG/DL (7-18); BUN/CREATININE RATIO 13.2 (5.4-32.0); CALCIUM 7.7 MG/DL (8.5-10.1); CHLORIDE 110 MMOL/L (99-107); CREATININE 3.72 MG/DL (0.60-1.10); EOSINOPHILS # (AUTO) 0.1 X10'3 (0-0.9); EOSINOPHILS % (AUTO) 1.1 % (0-6); GLUCOSE 166 MG/DL (70-104); HEMATOCRIT 22.1 % (42.0-52.0); HEMOGLOBIN 7.4 g/dl (14.0-17.9); LYMPHOCYTES % (AUTO) 15.5 % (21-51); MAGNESIUM 2.4 MG/DL (1.5-2.4); MEAN CORPUSCULAR HEMOGLOBIN 30.3 PG (27.0-31.0); MEAN CORPUSCULAR HGB CONC 33.5 g/dL (33.0-36.5); MEAN CORPUSCULAR VOLUME 90.5 FL (78-98); MEAN PLATELET VOLUME 6.5 FL (7.4-10.4); MONOCYTES # (AUTO) 0.9 X10'3 (0-0.9); MONOCYTES % (AUTO) 6.7 % (2-12); NEUTROPHILS # (AUTO) 10.1 X10'3 (1.8-7.7); NEUTROPHILS % (AUTO) 76.4 % (42-75); PLATELET COUNT 402 X10'3 (140-440); POTASSIUM 4.7 MMOL/L (3.5-5.1); RED BLOOD COUNT 2.44 X10'6 (4.70-6.10); RED CELL DISTRIBUTION WIDTH 14.8 % (11.5-14.5); SODIUM 137 MMOL/L (135-145); VANCOMYCIN,RANDOM 14.2 UG/ML; WHITE BLOOD COUNT 13.2 X10'3 (4.5-11.0); eGFR 18 ML/MIN
[2018-10-14 06:41] LABS: TOTAL CARBON DIOXIDE 13.6 MMOL/L (24-32)
--- NOTE | 2018-10-14 06:59 | NUR ---
Patient in room ORTHO 4015. I have received report from ADITI De La Torre and had the opportunity to ask questions and assume patient care. Addendum: 10/14/18 at 0700 by Margareth Alas RN Amended: Links added.
--- NOTE | 2018-10-14 07:18 | NUR ---
paged Dr. Oconnor re: critical lab result. Dr. Oconnor called back and I verbally gave him the results of the CO2 of 13.6. No new orders received, wants me to find out where the patient had his previous blood cultures drawn and get the report sent to us.
[2018-10-14] MEDS: albuterol 2.5 MG/3 ML nebule NEB SCH (07:37)
[2018-10-14] MEDS: budesonide 0.5mg/2ml UD nebule IH SCH (07:37)
[2018-10-14] MEDS: normal saline 1000ml 1,000 ML IV SCH ×3 (08:00→22:05)
[2018-10-14] MEDS: K and/or MAG REPLACEMENT MC SCH (08:00)
[2018-10-14] MEDS: lactobacillus rhamnosus 10,000 MMU CELLS/CAPSULE PO SCH ×2 (08:01→19:38)
[2018-10-14] MEDS: pantoprazole 40mg Tablet.DR PO SCH (08:01)
[2018-10-14] MEDS: heparin, porcine 5000 units/ml vial SQ SCH ×2 (08:02→19:38)
[2018-10-14] MEDS: CefTRIAXone 2gm/D5W 50ml 50 ML IV SCH (08:13)
[2018-10-14] MEDS ORDERED: sodium chloride 0.45% 1,000 ML IV SCH (08:45)
[2018-10-14 10:00] VITALS: BP 164/84
[2018-10-14 10:50] LABS: TOTAL PROTEIN,URINE RANDOM 491.4 MG/DL
[2018-10-14] MEDS: insulin Lispro (HumaLOG) vial - multi-dose SQ SCH ×3 (11:39→19:33)
[2018-10-14] MEDS ORDERED: proCHLORperazine 10 MG/2 ml inj IV PRN (12:05)
[2018-10-14] MEDS ORDERED: ibuprofen tablet 400 MG TABLET PO PRN ×2 (12:05→21:35)
--- NOTE | 2018-10-14 12:24 | NUR ---
reassessment: Pt s/p R BKA w/ plans to return to OR for I&D tomorrow per MD note. PO 75-100% avg meals w/ protien preferences. Refused breakfast this AM given noted nausea and large BM. Ensure high protein TIDWM added for additional healing needs; MD notified pending verification prior to sending w/ meals. Will continue to monitor. Recommend: 1. continue carb controlled, heart healthy diet 2. cottage cheese with breakfast, yogurt with dinner, milk all meals 3. ensure high protein TIDWM; pending MD verification prior to sending on trays 4. weight per rx Addendum: 10/14/18 at [address] Amended: Links added.
[2018-10-14] MEDS ORDERED: budesonide 0.5mg/2ml UD nebule IH PRN (12:25)
[2018-10-14] MEDS: metroNIDAZOLE-Flagyl 500mg/NS 100 ML IV SCH (13:14)
[2018-10-14] MEDS: albuterol 2.5 MG/3 ML nebule NEB PRN (15:18)
[2018-10-14] MEDS: lactose-reduced food (Ensure High Protein) 237ml bottle PO SCH ×2 (16:00→18:58)
[2018-10-14 18:00] VITALS: BP 153/71
--- NOTE | 2018-10-14 18:08 | NUR ---
Problems reprioritized. Patient report given, questions answered & plan of care reviewed with ADITI De La Torre. Addendum: 10/14/18 at 1809 by Margareth Alas RN Amended: Links added.
[2018-10-14] MEDS: acetaminophen 325mg tablet PO PRN (19:38)
[2018-10-14] MEDS: insulin glargine (Lantus) pen - multi-dose SQ SCH (21:46)
[2018-10-14 22:00] VITALS: BP 147/87
[2018-10-15] VITALS (7 sets, daily range): BP systolic 150–178; BP diastolic 79–91
[2018-10-15] MEDS: metroNIDAZOLE-Flagyl 500mg/NS 100 ML IV SCH ×2 (00:23→14:46)
[2018-10-15] MEDS: normal saline 1000ml 1,000 ML IV SCH ×2 (00:23→11:57)
--- NOTE | 2018-10-15 00:35 | NUR ---
pt felt low on glucose. checked - 74. sandwich given.
[2018-10-15] MEDS: VANCOMYCIN LEVEL IV SCH (03:00)
--- NOTE | 2018-10-15 05:25 | NUR ---
pt refused pre-op scrub. c/o nausea but refused any medication. noted wheezing - RT prn treatment ordered and paged RT for tx. pt also refused bladder scan at this time post void.
[2018-10-15] MEDS: albuterol 2.5 MG/3 ML nebule NEB PRN ×2 (05:35→21:31)
[2018-10-15] MEDS: morphine 2 MG/ML inj. syringe IV PRN ×2 (06:05→11:51)
[2018-10-15 06:08] LABS: BASOPHILS # (AUTO) 0.1 X10'3 (0-0.2); BASOPHILS % (AUTO) 0.4 % (0-1); EOSINOPHILS # (AUTO) 0.1 X10'3 (0-0.9); EOSINOPHILS % (AUTO) 0.8 % (0-6); HEMATOCRIT 22.2 % (42.0-52.0); HEMOGLOBIN 7.3 g/dl (14.0-17.9); LYMPHOCYTES # (AUTO) 2.1 X10'3 (1.1-4.8); LYMPHOCYTES % (AUTO) 13.6 % (21-51); MEAN CORPUSCULAR HGB CONC 32.9 g/dL (33.0-36.5); MEAN CORPUSCULAR VOLUME 91.3 FL (78-98); MEAN PLATELET VOLUME 6.5 FL (7.4-10.4); MONOCYTES # (AUTO) 0.8 X10'3 (0-0.9); MONOCYTES % (AUTO) 5.4 % (2-12); NEUTROPHILS # (AUTO) 12.2 X10'3 (1.8-7.7); NEUTROPHILS % (AUTO) 79.8 % (42-75); PLATELET COUNT 505 X10'3 (140-440); RED BLOOD COUNT 2.43 X10'6 (4.70-6.10); RED CELL DISTRIBUTION WIDTH 14.9 % (11.5-14.5); WHITE BLOOD COUNT 15.3 X10'3 (4.5-11.0)
[2018-10-15 06:16] LABS: ALBUMIN 1.4 G/DL (3.4-5.0); ANION GAP 13 (8-16); BLOOD UREA NITROGEN 52 MG/DL (7-18); BUN/CREATININE RATIO 13.4 (5.4-32.0); CALCIUM 7.8 MG/DL (8.5-10.1); CHLORIDE 108 MMOL/L (99-107); CREATININE 3.87 MG/DL (0.60-1.10); GLUCOSE 170 MG/DL (70-104); POTASSIUM 4.9 MMOL/L (3.5-5.1); SODIUM 135 MMOL/L (135-145); VANCOMYCIN,RANDOM 25.6 UG/ML; eGFR 17 ML/MIN
[2018-10-15 06:24] LABS: TOTAL CARBON DIOXIDE 13.9 MMOL/L (24-32)
--- NOTE | 2018-10-15 06:43 | NUR ---
reported to days. noted pt low CO2 improved since yesterday. Kathrine notified. called and left message for surgical charge nurse about low H/H
[2018-10-15] MEDS: K and/or MAG REPLACEMENT MC SCH (07:28)
[2018-10-15] MEDS: heparin, porcine 5000 units/ml vial SQ SCH ×2 (07:31→19:44)
[2018-10-15] MEDS: CefTRIAXone 2gm/D5W 50ml 50 ML IV SCH (07:38)
[2018-10-15] MEDS: lactobacillus rhamnosus 10,000 MMU CELLS/CAPSULE PO SCH ×2 (07:38→19:41)
[2018-10-15] MEDS: pantoprazole 40mg Tablet.DR PO SCH (07:38)
[2018-10-15] MEDS: lactose-reduced food (Ensure High Protein) 237ml bottle PO SCH ×3 (08:00→18:00)
[2018-10-15 08:43] LABS: PLATELET ESTIMATE INCREASED; TOTAL CELLS COUNTED 100
[2018-10-15 08:44] LABS: TOXIC GRANULATION 2+
[2018-10-15 08:45] LABS: POLYCHROMASIA FEW; SCHISTOCYTES FEW
--- NOTE | 2018-10-15 09:46 | NUR ---
RT CAME TO CHECK ON THE PT AND OBTAIN SOME VITAL SIGNS. PT STATED HE WAS FINE AND DIDNT WANT ANY VITALS TAKEN OR TO BOTHER HIM.
--- NOTE | 2018-10-15 12:34 | NUR ---
Results from previous surgery and todays labs Addendum: 10/15/18 at 1235 by Leigh Shelby RN Amended: Links added.
--- NOTE | 2018-10-15 15:22 | NUR ---
Patient to OR
[2018-10-15] MEDS ORDERED: fentaNYL /PF 50mcg/ml 5ml ampule ONE (15:51)
[2018-10-15] MEDS ORDERED: midazolam 2 mg/2 ml injection ONE (15:51)
[2018-10-15] MEDS ORDERED: propofol inj 20 ML IV ONE (15:52)
[2018-10-15] MEDS ORDERED: ketamine 50mg/5ml syringe ONE (15:52)
[2018-10-15] MEDS ORDERED: sevoflurane 250ml liquid IH ONE (15:56)
[2018-10-15] MEDS ORDERED: ringers solution, lacted 1,000 ML IV SCH (16:31)
[2018-10-15] MEDS ORDERED: meperidine/PF 25mg/ml syringe IV PRN ×3 (16:35)
[2018-10-15] MEDS ORDERED: ondansetron/PF 4mg/2ml inj IV PRN (16:35)
[2018-10-15] MEDS ORDERED: morphine 4 MG/ML inj SYRINge IV PRN (16:35)
[2018-10-15] MEDS ORDERED: proCHLORperazine 10 MG/2 ml inj IV PRN (16:35)
--- NOTE | 2018-10-15 17:10 | NUR ---
ADMITTED TO PACU FROM OR ACCOMPANIED BY ANESTHESIA. INTIAL PHYSICAL ASSESSMENT DONE AND RECORDED. AWAKE AND RESPONSE ON ARRIVE YO PACU, REPORT RECEIVED FROM ANESTHESIA.
[2018-10-15] MEDS: morphine 4 MG/ML inj SYRINge IV PRN ×2 (17:27→17:30)
--- NOTE | 2018-10-15 17:50 | NUR ---
PACU DISCHARGE CRITERIA MET, REPORT GIVEN TO FLOOR. DENIES PAIN OR DISCOMFORT, TRANSFERRED TO ROOM IN STABLE GOOD CONDITION.
[2018-10-15] MEDS: ondansetron/PF 4mg/2ml inj IV PRN (18:13)
[2018-10-15] MEDS ORDERED: naloxone 0.4 mg/ml inj IV PRN (18:20)
[2018-10-15] MEDS ORDERED: CADD PCA waste documentation MC SCH (18:20)
--- NOTE | 2018-10-15 18:40 | NUR ---
Problems reprioritized. Patient report given, questions answered & plan of care reviewed with Pratibha PENNINGTON.
[2018-10-15] MEDS: MORPHINE CADD 5 MG/ML 50ML IV SCH ×4 (19:00→23:00)
--- NOTE | 2018-10-15 19:00 | NUR ---
Pt removed his BP cuff and O2 and stated that he was not going to keep it on. Pt educated on vital signs after surgery, pt not interested. Addendum: 10/16/18 at 0045 by Olamide Harris RN Amended: Links added.
[2018-10-15] MEDS: linezolid 600mg/300ml PREMIX 300 ML IV SCH (19:41)
[2018-10-15] MEDS: insulin glargine (Lantus) pen - multi-dose SQ SCH (21:08)
[2018-10-16] VITALS (9 sets, daily range): BP systolic 154–195; BP diastolic 80–102
[2018-10-16] MEDS: metroNIDAZOLE-Flagyl 500mg/NS 100 ML IV SCH ×2 (01:59→14:07)
[2018-10-16] MEDS: normal saline 1000ml 1,000 ML IV SCH ×3 (01:59→23:33)
[2018-10-16] MEDS: MORPHINE CADD 5 MG/ML 50ML IV SCH ×11 (03:00→23:00)
[2018-10-16 04:29] LABS: TOTAL PROTEIN,URINE RANDOM 376.3 MG/DL
--- NOTE | 2018-10-16 06:23 | NUR ---
Problems reprioritized. Patient report given, questions answered & plan of care reviewed with Devan. Addendum: 10/16/18 at 0624 by Olamide Harris RN Amended: Links added.
--- NOTE | 2018-10-16 06:30 | NUR ---
Received report from Olamide PENNINGTON
[2018-10-16 06:43] LABS: BASOPHILS % (AUTO) 0.3 % (0-1); EOSINOPHILS # (AUTO) 0.1 X10'3 (0-0.9); EOSINOPHILS % (AUTO) 0.8 % (0-6); LYMPHOCYTES # (AUTO) 1.3 X10'3 (1.1-4.8); LYMPHOCYTES % (AUTO) 9.3 % (21-51); MEAN CORPUSCULAR HEMOGLOBIN 30.5 PG (27.0-31.0); MEAN CORPUSCULAR HGB CONC 33.2 g/dL (33.0-36.5); MEAN CORPUSCULAR VOLUME 91.8 FL (78-98); MEAN PLATELET VOLUME 6.5 FL (7.4-10.4); MONOCYTES # (AUTO) 0.7 X10'3 (0-0.9); NEUTROPHILS # (AUTO) 11.5 X10'3 (1.8-7.7); NEUTROPHILS % (AUTO) 84.6 % (42-75); PLATELET COUNT 539 X10'3 (140-440); RED BLOOD COUNT 2.28 X10'6 (4.70-6.10); RED CELL DISTRIBUTION WIDTH 15.1 % (11.5-14.5); WHITE BLOOD COUNT 13.6 X10'3 (4.5-11.0)
[2018-10-16 06:44] LABS: ALBUMIN 1.3 G/DL (3.4-5.0); ANION GAP 14 (8-16); BLOOD UREA NITROGEN 53 MG/DL (7-18); BUN/CREATININE RATIO 14.1 (5.4-32.0); CALCIUM 7.4 MG/DL (8.5-10.1); CHLORIDE 109 MMOL/L (99-107); CREATININE 3.75 MG/DL (0.60-1.10); GLUCOSE 194 MG/DL (70-104); POTASSIUM 4.9 MMOL/L (3.5-5.1); SODIUM 137 MMOL/L (135-145); eGFR 18 ML/MIN
[2018-10-16 07:01] LABS: HEMATOCRIT 20.9 % (42.0-52.0); HEMOGLOBIN 6.9 g/dl (14.0-17.9)
[2018-10-16 07:02] LABS: TOTAL CARBON DIOXIDE 13.8 MMOL/L (24-32)
--- NOTE | 2018-10-16 07:09 | NUR ---
PAGER ID: [phone] MESSAGE: [phone] Steve Carter Patient has a Critical H/H 6.9/20.9 and Co2 13.8 Leigh 5439
[2018-10-16] MEDS: pantoprazole 40mg Tablet.DR PO SCH (07:30)
[2018-10-16] MEDS: lactose-reduced food (Ensure High Protein) 237ml bottle PO SCH ×3 (08:00→18:00)
[2018-10-16] MEDS: K and/or MAG REPLACEMENT MC SCH (08:09)
[2018-10-16] MEDS: linezolid 600mg/300ml PREMIX 300 ML IV SCH (08:19)
[2018-10-16] MEDS: CefTRIAXone 2gm/D5W 50ml 50 ML IV SCH (08:19)
[2018-10-16] MEDS: lactobacillus rhamnosus 10,000 MMU CELLS/CAPSULE PO SCH ×2 (08:20→21:05)
[2018-10-16] MEDS: heparin, porcine 5000 units/ml vial SQ SCH ×2 (08:20→21:04)
--- NOTE | 2018-10-16 08:46 | NUR ---
Family brought in breakfast, educated on his DM. Gave patient IS he stated "it was garbage" d
[2018-10-16 10:29] LABS: TOTAL CELLS COUNTED 100
[2018-10-16 10:32] LABS: ANISOCYTOSIS 1+; PLATELET ESTIMATE INCREASED
--- NOTE | 2018-10-16 13:42 | NUR ---
Pt receiving Zyvox, currently in isolation with requests to allow pt to rest. Pt will need low tyramine nutrition therapy education prior to discharge. Will continue to follow. Addendum: 10/16/18 at [address] Amended: Links added.
[2018-10-16] MEDS: insulin Lispro (HumaLOG) vial - multi-dose SQ SCH (14:02)
[2018-10-16 14:26] LABS: HEMOGLOBIN 7.7 g/dl (14.0-17.9); MEAN CORPUSCULAR HEMOGLOBIN 30.2 PG (27.0-31.0); MEAN CORPUSCULAR HGB CONC 33.6 g/dL (33.0-36.5); MEAN CORPUSCULAR VOLUME 89.9 FL (78-98); PLATELET COUNT 521 X10'3 (140-440); RED BLOOD COUNT 2.56 X10'6 (4.70-6.10); RED CELL DISTRIBUTION WIDTH 14.6 % (11.5-14.5); WHITE BLOOD COUNT 14.2 X10'3 (4.5-11.0)
--- NOTE | 2018-10-16 18:42 | NUR ---
Problems reprioritized. Patient report given, questions answered & plan of care reviewed with Rosalia PENNINGTON.
[2018-10-16] MEDS: linezolid 600mg tablet PO SCH (20:00)
[2018-10-16] MEDS: insulin glargine (Lantus) pen - multi-dose SQ SCH (21:15)
[2018-10-16] MEDS: albuterol 2.5 MG/3 ML nebule NEB PRN (23:18)
[2018-10-17] MEDS: acetaminophen 325mg tablet PO PRN ×4 (00:36→22:05)
[2018-10-17] MEDS: MORPHINE CADD 5 MG/ML 50ML IV SCH ×5 (01:00→08:54)
[2018-10-17 06:00] VITALS: BP 160/80
--- NOTE | 2018-10-17 06:00 | NUR ---
Patient in room ORTHO 4015. I have received report from Rosalia PENNINGTON and had the opportunity to ask questions and assume patient care.
[2018-10-17 06:04] LABS: BASOPHILS % (AUTO) 0.2 % (0-1); EOSINOPHILS # (AUTO) 0.1 X10'3 (0-0.9); EOSINOPHILS % (AUTO) 0.9 % (0-6); HEMOGLOBIN 7.1 g/dl (14.0-17.9); LYMPHOCYTES # (AUTO) 1.5 X10'3 (1.1-4.8); MEAN CORPUSCULAR HGB CONC 34.2 g/dL (33.0-36.5); MEAN CORPUSCULAR VOLUME 90.7 FL (78-98); MEAN PLATELET VOLUME 6.3 FL (7.4-10.4); MONOCYTES # (AUTO) 0.7 X10'3 (0-0.9); MONOCYTES % (AUTO) 5.4 % (2-12); NEUTROPHILS # (AUTO) 10.3 X10'3 (1.8-7.7); NEUTROPHILS % (AUTO) 81.5 % (42-75); PLATELET COUNT 535 X10'3 (140-440); RED BLOOD COUNT 2.28 X10'6 (4.70-6.10); RED CELL DISTRIBUTION WIDTH 14.7 % (11.5-14.5); WHITE BLOOD COUNT 12.7 X10'3 (4.5-11.0)
[2018-10-17 06:14] LABS: HEMATOCRIT 20.7 % (42.0-52.0)
[2018-10-17 06:25] LABS: ALBUMIN 1.3 G/DL (3.4-5.0); ANION GAP 11 (8-16); BLOOD UREA NITROGEN 51 MG/DL (7-18); BUN/CREATININE RATIO 14.9 (5.4-32.0); CALCIUM 7.5 MG/DL (8.5-10.1); CHLORIDE 112 MMOL/L (99-107); CREATININE 3.43 MG/DL (0.60-1.10); GLUCOSE 114 MG/DL (70-104); POTASSIUM 4.9 MMOL/L (3.5-5.1); SODIUM 137 MMOL/L (135-145); eGFR 20 ML/MIN
[2018-10-17 06:33] LABS: TOTAL CARBON DIOXIDE 14.1 MMOL/L (24-32)
[2018-10-17] MEDS: albuterol 2.5 MG/3 ML nebule NEB PRN ×3 (07:40→19:29)
[2018-10-17] MEDS: K and/or MAG REPLACEMENT MC SCH (08:00)
[2018-10-17] MEDS: pantoprazole 40mg Tablet.DR PO SCH (08:14)
[2018-10-17] MEDS: lactobacillus rhamnosus 10,000 MMU CELLS/CAPSULE PO SCH ×2 (08:14→19:17)
[2018-10-17] MEDS: heparin, porcine 5000 units/ml vial SQ SCH ×2 (08:14→19:18)
[2018-10-17] MEDS: insulin Lispro (HumaLOG) vial - multi-dose SQ SCH ×2 (08:24→19:08)
[2018-10-17] MEDS: linezolid 600mg tablet PO SCH ×2 (08:27→19:18)
[2018-10-17] MEDS: lactose-reduced food (Ensure High Protein) 237ml bottle PO SCH ×3 (08:29→18:00)
[2018-10-17] MEDS: normal saline 1000ml 1,000 ML IV SCH (08:53)
[2018-10-17 10:00] VITALS: BP 160/90
[2018-10-17] MEDS ORDERED: LORazepam 1 MG tablet PO PRN (12:50)
[2018-10-17] MEDS ORDERED: SODIUM BICARBONATE IV SCH ×3 (15:25→15:35)
[2018-10-17] MEDS ORDERED: WATER IV SCH ×3 (15:25→15:35)
[2018-10-17] MEDS ORDERED: DEXTROSE IV SCH ×3 (15:25→15:35)
[2018-10-17 17:50] LABS: CLARITY,URINE SLIGHTLY CLOUDY (Clear); COLOR,URINE YELLOW (Yellow); GLUCOSE, URINE NEGATIVE (Neg); KETONES,URINE NEGATIVE (Neg); LEUKOCYTE ESTERASE ,URINE NEGATIVE (Neg); NITRITES, URINE NEGATIVE (Neg); OCCULT BLOOD,URINE LARGE (Neg); PROTEIN,URINE 100 mg/dl (Neg); UA COLLECTION TYPE CLN CATCH MIDSTREAM; UROBILINOGEN,URINE 0.2 E.U/dL (0.2-1.0)
[2018-10-17 17:55] LABS: WBC,URINE 0-4 /HPF (0-4)
[2018-10-17] MEDS: hydrALAZINE 20mg/ml inj. IV PRN (17:55)
[2018-10-17 17:56] LABS: AMORPHOUS URATES 1+; BACTERIA,URINE FEW /HPF (Neg); HYALINE CASTS 0-3 /LPF (NEGATIVE); MUCUS STRANDS FEW /LPF (Neg); SQUAMOUS EPITHELIAL CELL,UR FEW /LPF (FEW)
[2018-10-17 18:00] VITALS: BP 190/90
--- NOTE | 2018-10-17 18:00 | NUR ---
Problems reprioritized. Patient report given, questions answered & plan of care reviewed with Virgie RN.
--- NOTE | 2018-10-17 18:20 | NUR ---
Received report from Nahomi PENNINGTON.
[2018-10-17] MEDS: famotidine 20mg tablet PO SCH (19:17)
[2018-10-17] MEDS: budesonide 0.5mg/2ml UD nebule IH SCH (19:29)
[2018-10-17] MEDS: sodium bicarbonate inj. 75 ML in dextrose 5% water 500ml 500 ML IV SCH (20:47)
[2018-10-17] MEDS: insulin glargine (Lantus) pen - multi-dose SQ SCH (21:29)
[2018-10-17 22:00] VITALS: BP 157/79
[2018-10-18] VITALS (8 sets, daily range): BP systolic 120–178; BP diastolic 74–98
[2018-10-18] MEDS: sodium bicarbonate inj. 75 ML in dextrose 5% water 500ml 500 ML IV SCH ×4 (04:15→21:11)
[2018-10-18] MEDS: hydrALAZINE 20mg/ml inj. IV PRN ×3 (04:39→21:31)
[2018-10-18] MEDS: acetaminophen 325mg tablet PO PRN ×3 (04:39→18:57)
--- NOTE | 2018-10-18 06:25 | NUR ---
Gave report to Tania PENNINGTON.
[2018-10-18 07:00] LABS: BASOPHILS % (AUTO) 0.4 % (0-1); EOSINOPHILS # (AUTO) 0.2 X10'3 (0-0.9); EOSINOPHILS % (AUTO) 1.2 % (0-6); LYMPHOCYTES # (AUTO) 1.4 X10'3 (1.1-4.8); LYMPHOCYTES % (AUTO) 11.3 % (21-51); MEAN CORPUSCULAR HEMOGLOBIN 30.2 PG (27.0-31.0); MEAN CORPUSCULAR HGB CONC 33.1 g/dL (33.0-36.5); MEAN CORPUSCULAR VOLUME 91.2 FL (78-98); MEAN PLATELET VOLUME 6.3 FL (7.4-10.4); MONOCYTES # (AUTO) 0.6 X10'3 (0-0.9); MONOCYTES % (AUTO) 5.1 % (2-12); NEUTROPHILS # (AUTO) 10.3 X10'3 (1.8-7.7); PLATELET COUNT 596 X10'3 (140-440); RED BLOOD COUNT 2.22 X10'6 (4.70-6.10); RED CELL DISTRIBUTION WIDTH 14.6 % (11.5-14.5); WHITE BLOOD COUNT 12.5 X10'3 (4.5-11.0)
[2018-10-18 07:06] LABS: HEMATOCRIT 20.2 % (42.0-52.0); HEMOGLOBIN 6.7 g/dl (14.0-17.9)
[2018-10-18] MEDS: budesonide 0.5mg/2ml UD nebule IH SCH ×2 (07:08→18:26)
[2018-10-18] MEDS: albuterol 2.5 MG/3 ML nebule NEB PRN ×2 (07:08→11:57)
[2018-10-18 07:21] LABS: ALBUMIN 1.3 G/DL (3.4-5.0); ANION GAP 12 (8-16); BLOOD UREA NITROGEN 52 MG/DL (7-18); BUN/CREATININE RATIO 15.5 (5.4-32.0); CALCIUM 7.6 MG/DL (8.5-10.1); CHLORIDE 110 MMOL/L (99-107); CREATININE 3.35 MG/DL (0.60-1.10); GLUCOSE 122 MG/DL (70-104); POTASSIUM 4.8 MMOL/L (3.5-5.1); SODIUM 137 MMOL/L (135-145); TOTAL CARBON DIOXIDE 15.5 MMOL/L (24-32); eGFR 20 ML/MIN
--- NOTE | 2018-10-18 07:25 | NUR ---
PT REFUSED AM BLOOD SUGAR CHECK
[2018-10-18 07:27] LABS: RHEUM FACTOR QUAL REFLEX TITER NEGATIVE (Neg)
[2018-10-18 07:29] LABS: % IRON SATURATION 18 % (11-46); IRON 29 UG/DL (53-167); TOTAL IRON BINDING CAPACITY 164 UG/DL (259-388)
[2018-10-18] MEDS ORDERED: furosemide 40mg/4ml inj IV ONE ×2 (07:45→11:20)
[2018-10-18 07:49] LABS: FERRITIN 135 NG/ML (26-388)
[2018-10-18] MEDS: K and/or MAG REPLACEMENT MC SCH (08:00)
[2018-10-18] MEDS: lactose-reduced food (Ensure High Protein) 237ml bottle PO SCH ×3 (08:00→18:03)
[2018-10-18 08:06] LABS: ABG BASE EXCESS -11.2 mmol/L (-2.0-3.0); ABG OXYGEN SATURATION 95.5 % (95-98); ABG PCO2 (T) 24.6 mmHg (35.0-45.0); ABG PH (T) 7.341 (7.350-7.450); ABG PO2 (T) 81.1 mmHg (83-108); ALLEN'S TEST Positive; FCOHb 0.2 % (0.5-1.5); FMetHb 0.3 % (0.3-1.12); TOTAL HEMOGLOBIN 10.1 G/dl (14.0-17.9)
[2018-10-18] MEDS: heparin, porcine 5000 units/ml vial SQ SCH ×2 (08:36→21:11)
[2018-10-18] MEDS: lactobacillus rhamnosus 10,000 MMU CELLS/CAPSULE PO SCH ×2 (08:36→21:11)
[2018-10-18] MEDS: linezolid 600mg tablet PO SCH ×2 (08:36→21:11)
[2018-10-18] MEDS: famotidine 20mg tablet PO SCH ×2 (08:36→21:10)
[2018-10-18] MEDS ORDERED: sodium ferric gluc complex inj 25 MG in normal saline 50ml IV soln 48 ML IV ONE (10:45)
--- NOTE | 2018-10-18 12:49 | NUR ---
reassessment: Pt seen by RD for written/verbal zyvox ed w/ RD contact information provided. Pt reports disliking ensure high protein; RN d/c and dietary notified changing to ensure pudding TIDWM since pt was agreeable. Pt reports disliking some foods but declines alternative seasoning options and reports is having food brought in from outside. PO 25% but fluctuates to 100% depending on meals; likely since receiving food from outside. LBM 10/17. Will continue to monitor. Recommend: 1. continue carb controlled, heart healthy diet 2. cottage cheese with breakfast, yogurt with dinner, milk all meals 3. ensure pudding TIDWM 4. weight per rx Addendum: 10/18/18 at [address] Amended: Links added.
[2018-10-18] MEDS: sodium ferric gluc complex inj 125 MG in normal saline 100ml IV soln 100 ML IV SCH (12:51)
[2018-10-18] MEDS: predniSONE 20 mg tablet PO SCH (15:08)
[2018-10-18] MEDS: ipratropium/albuterol 3ml nebule NEB SCH (18:26)
[2018-10-18] MEDS: insulin Lispro (HumaLOG) vial - multi-dose SQ SCH (18:55)
[2018-10-18] MEDS: insulin glargine (Lantus) pen - multi-dose SQ SCH (21:33)
[2018-10-19] MEDS: ipratropium/albuterol 3ml nebule NEB PRN ×2 (02:50→14:24)
[2018-10-19] MEDS: sodium bicarbonate inj. 75 ML in dextrose 5% water 500ml 500 ML IV SCH ×4 (03:53→20:42)
[2018-10-19] MEDS: budesonide 0.5mg/2ml UD nebule IH SCH ×2 (07:44→20:09)
[2018-10-19] MEDS: ipratropium/albuterol 3ml nebule NEB SCH ×2 (07:44→20:10)
[2018-10-19] MEDS: lactose-reduced food (Ensure High Protein) 237ml bottle PO SCH ×3 (08:00→18:00)
[2018-10-19] MEDS: K and/or MAG REPLACEMENT MC SCH (08:00)
[2018-10-19 08:43] LABS: BASOPHILS % (AUTO) 0.2 % (0-1); EOSINOPHILS % (AUTO) 0 % (0-6); HEMOGLOBIN 8.1 g/dl (14.0-17.9); MEAN PLATELET VOLUME 6.1 FL (7.4-10.4); MONOCYTES % (AUTO) 2.1 % (2-12); NEUTROPHILS # (AUTO) 10.5 X10'3 (1.8-7.7)
[2018-10-19 08:46] LABS: HEMATOCRIT 23.8 % (42.0-52.0); LYMPHOCYTES % (AUTO) 8.5 % (21-51); MEAN CORPUSCULAR HEMOGLOBIN 30.6 PG (27.0-31.0); MEAN CORPUSCULAR HGB CONC 34.1 g/dL (33.0-36.5); MEAN CORPUSCULAR VOLUME 89.7 FL (78-98); MONOCYTES # (AUTO) 0.2 X10'3 (0-0.9); NEUTROPHILS % (AUTO) 89.2 % (42-75); PLATELET COUNT 685 X10'3 (140-440); RED BLOOD COUNT 2.65 X10'6 (4.70-6.10); RED CELL DISTRIBUTION WIDTH 14.9 % (11.5-14.5); WHITE BLOOD COUNT 11.8 X10'3 (4.5-11.0)
[2018-10-19 08:51] LABS: ALBUMIN 1.5 G/DL (3.4-5.0); ANION GAP 11 (8-16); BLOOD UREA NITROGEN 54 MG/DL (7-18); CALCIUM 7.8 MG/DL (8.5-10.1); CHLORIDE 107 MMOL/L (99-107); CREATININE 3.18 MG/DL (0.60-1.10); GLUCOSE 246 MG/DL (70-104); POTASSIUM 5.2 MMOL/L (3.5-5.1); SODIUM 134 MMOL/L (135-145); TOTAL CARBON DIOXIDE 16.5 MMOL/L (24-32); eGFR 21 ML/MIN
[2018-10-19] MEDS: famotidine 20mg tablet PO SCH ×2 (09:08→19:37)
[2018-10-19] MEDS: predniSONE 20 mg tablet PO SCH (09:08)
[2018-10-19] MEDS: lactobacillus rhamnosus 10,000 MMU CELLS/CAPSULE PO SCH ×2 (09:09→19:37)
[2018-10-19] MEDS: heparin, porcine 5000 units/ml vial SQ SCH ×2 (09:09→19:37)
[2018-10-19] MEDS: insulin Lispro (HumaLOG) vial - multi-dose SQ SCH ×3 (09:18→20:46)
[2018-10-19] MEDS: linezolid 600mg tablet PO SCH ×2 (09:22→19:37)
[2018-10-19] MEDS: acetaminophen 325mg tablet PO PRN ×2 (09:37→19:37)
[2018-10-19] MEDS: sodium ferric gluc complex inj 125 MG in normal saline 100ml IV soln 100 ML IV SCH (09:38)
[2018-10-19 10:00] VITALS: BP 166/89
[2018-10-19 18:30] VITALS: BP 172/89
[2018-10-19] MEDS: insulin glargine (Lantus) pen - multi-dose SQ SCH (20:48)
[2018-10-19 22:00] VITALS: BP 162/87
[2018-10-20] MEDS: HYDROcodone/acetaminophen 10/325mg tab PO PRN (00:44)
[2018-10-20] MEDS: sodium bicarbonate inj. 75 ML in dextrose 5% water 500ml 500 ML IV SCH ×2 (00:45→06:17)
[2018-10-20] MEDS: acetaminophen 325mg tablet PO PRN (01:36)
[2018-10-20] MEDS: ipratropium/albuterol 3ml nebule NEB PRN (02:42)
[2018-10-20 05:20] LABS: HBSAG SCREEN Negative (Negative); HEPATITIS C ANTIBODY 0.1 s/co ratio (0.0-0.9)
[2018-10-20 06:00] VITALS: BP 167/85
[2018-10-20 06:16] LABS: RPR Non Reactive (Non Reactive)
[2018-10-20] MEDS: ipratropium/albuterol 3ml nebule NEB SCH (07:49)
[2018-10-20] MEDS: budesonide 0.5mg/2ml UD nebule IH SCH (07:49)
[2018-10-20] MEDS ORDERED: LINE600T14 PO (08:09)
[2018-10-20] MEDS ORDERED: SODI650T29 PO (08:17)
[2018-10-20] MEDS: predniSONE 20 mg tablet PO SCH (08:23)
[2018-10-20] MEDS: famotidine 20mg tablet PO SCH (08:23)
[2018-10-20] MEDS: lactobacillus rhamnosus 10,000 MMU CELLS/CAPSULE PO SCH (08:23)
[2018-10-20] MEDS: linezolid 600mg tablet PO SCH (08:23)
[2018-10-20] MEDS: heparin, porcine 5000 units/ml vial SQ SCH (08:29)
[2018-10-20 08:33] LABS: EOSINOPHILS % (AUTO) 0.2 % (0-6); MEAN PLATELET VOLUME 6.4 FL (7.4-10.4); WHITE BLOOD COUNT 11.1 X10'3 (4.5-11.0)
[2018-10-20 08:34] LABS: BASOPHILS % (AUTO) 0.3 % (0-1); HEMATOCRIT 22.5 % (42.0-52.0); HEMOGLOBIN 7.4 g/dl (14.0-17.9); LYMPHOCYTES # (AUTO) 1.6 X10'3 (1.1-4.8); LYMPHOCYTES % (AUTO) 14.3 % (21-51); MEAN CORPUSCULAR HEMOGLOBIN 30.2 PG (27.0-31.0); MEAN CORPUSCULAR HGB CONC 33.1 g/dL (33.0-36.5); MEAN CORPUSCULAR VOLUME 91.2 FL (78-98); MONOCYTES # (AUTO) 0.6 X10'3 (0-0.9); NEUTROPHILS # (AUTO) 8.9 X10'3 (1.8-7.7); NEUTROPHILS % (AUTO) 80.2 % (42-75); PLATELET COUNT 662 X10'3 (140-440); RED BLOOD COUNT 2.47 X10'6 (4.70-6.10); RED CELL DISTRIBUTION WIDTH 15.2 % (11.5-14.5)
[2018-10-20 08:36] LABS: ALBUMIN 1.6 G/DL (3.4-5.0); ANION GAP 11 (8-16); BLOOD UREA NITROGEN 66 MG/DL (7-18); BUN/CREATININE RATIO 18.4 (5.4-32.0); CALCIUM 7.5 MG/DL (8.5-10.1); CHLORIDE 104 MMOL/L (99-107); CREATININE 3.58 MG/DL (0.60-1.10); GLUCOSE 253 MG/DL (70-104); POTASSIUM 5.2 MMOL/L (3.5-5.1); SODIUM 133 MMOL/L (135-145); TOTAL CARBON DIOXIDE 18.5 MMOL/L (24-32); eGFR 19 ML/MIN
[2018-10-20 10:00] VITALS: BP 183/97
[2018-10-20 11:17] LABS: A/G RATIO 0.4 (0.7-1.7); ALBUMIN 1.7 g/dL (2.9-4.4); BETA GLOBULIN 0.9 g/dL (0.7-1.3); GLOBULIN, TOTAL 4.4 g/dL (2.2-3.9); M-SPIKE Not Observed g/dL (Not Observed); PROTEIN, TOTAL, SERUM 6.1 g/dL (6.0-8.5)
[2018-10-21 08:11] LABS: COMPLEMENT C3, SERUM 125 mg/dL (82-167); COMPLEMENT C4, SERUM 23 mg/dL (14-44)
[2018-10-22 13:18] LABS: ATYPICAL PANCA <1:20 titer (Neg:<1:20); PERINUCLEAR (P-ANCA) <1:20 titer (Neg:<1:20)
[2018-10-23 17:15] LABS: ANTINUCLEAR ANTIBODIES Negative (Negative)
== END 2018-10-20 11:30 | disposition home or self-care (01) | DRG 305 ==
LOC: ER 14:55 → PCU 3S 21:27 → CMPBEDREQ 21:30 → ORTHO 4S 10-12 17:06
PROVIDERS: ADMIT Internal Medicine; ATTEND Internal Medicine
PROC: CP1C1ZZ Planar Nuclear Medicine Imaging of Right Lower Extremity using Technetium 99m (Tc-99m) (ICD-10-PCS; 2018-10-10)
PROC: 30233N1 Transfusion of Nonautologous Red Blood Cells into Peripheral Vein, Percutaneous Approach (ICD-10-PCS; 2018-10-12)
PROC: 0Y6H0Z1 Detachment at Right Lower Leg, High, Open Approach (ICD-10-PCS; principal; 2018-10-12 15:02)
PROC: 0Y6H0Z3 Detachment at Right Lower Leg, Low, Open Approach (ICD-10-PCS; 2018-10-15)
PROC: 30233N1 Transfusion of Nonautologous Red Blood Cells into Peripheral Vein, Percutaneous Approach (ICD-10-PCS; 2018-10-16)
PROC: 30233N1 Transfusion of Nonautologous Red Blood Cells into Peripheral Vein, Percutaneous Approach (ICD-10-PCS; 2018-10-18)
DX: T87.43 Infection of amputation stump, right lower extremity (principal); A41.02 Sepsis due to Methicillin resistant Staphylococcus aureus; R65.21 Severe sepsis with septic shock; E43 Unspecified severe protein-calorie malnutrition; I50.31 Acute diastolic (congestive) heart failure; K85.90 Acute pancreatitis without necrosis or infection, unspecified; E10.649 Type 1 diabetes mellitus with hypoglycemia without coma; N17.9 Acute kidney failure, unspecified; D62 Acute posthemorrhagic anemia; Y83.5 Amputation of limb(s) as the cause of abnormal reaction of the patient, or of later complication, without mention of misadventure at the time of the procedure; E66.01 Morbid (severe) obesity due to excess calories; L03.115 Cellulitis of right lower limb; I50.812 Chronic right heart failure; I11.0 Hypertensive heart disease with heart failure; F12.90 Cannabis use, unspecified, uncomplicated; E87.1 Hypo-osmolality and hyponatremia; F32.9 Major depressive disorder, single episode, unspecified; K57.30 Diverticulosis of large intestine without perforation or abscess without bleeding; J45.909 Unspecified asthma, uncomplicated; K21.9 Gastro-esophageal reflux disease without esophagitis; Z79.4 Long term (current) use of insulin; Z90.49 Acquired absence of other specified parts of digestive tract; Z91.19 Patient's noncompliance with other medical treatment and regimen; Z68.41 Body mass index [BMI] 40.0-44.9, adult; Z88.0 Allergy status to penicillin; Z79.899 Other long term (current) drug therapy; Z87.891 Personal history of nicotine dependence
CPT/HCPCS: 36415; 36600; 71045; 73700; 74176; 76775; 76937; 78315; 80048; 80053; 80202; 81001; 82570; 82728; 82803; 82948; 83036; 83540; 83550; 83605; 83690; 83735; 83880; 83935; 84145; 84155; 84156; 84165; 84300; 85018; 85025; 85027; 85651; 86038; 86160; 86256; 86430; 86592; 86803; 86885; 86900; 86901; 86920; 87040; 87070; 87075; 87077; 87081; 87186; 87207; 87324; 87340; 87449; 93306; 94640; 94760; 96374; 96376; 97110; 97161; 97530; 97535; 99285; A4338; A4618; A6222; A6446; A6449; A6550; A7000; A9503; G0378; J0360; J0696; J1644; J1815; J1940; J2020; J2250; J2270; J2405; J2543; J2704; J2916; J3010; J3370; J3490; J7030; J7120; J7512; J7626; P9016

== ENCOUNTER 2018-10-25 19:22 | Inpatient (IN) | payer MEDICAID ==
[~2018-10-25] VITALS: Ht 195.6 cm; Wt 159.1 kg
[~2018-10-25 19:22] MED LIST: ALBU8HFA PO; ATRIN IH; FLUT1AER4 IH; INSU100V5 SQ; INSU100V9 SQ; IPRA4AER IH; LIDO35.4 TOP; LINE600T14 PO; LOSA50TA64 PO; RANI-648 PO; SODI650T29 PO
--- NOTE | 2018-10-25 19:35 | NUR ---
DR GRANADOS INFORMED OF PT STATUS AND TO PLEASE SEE PT.
[2018-10-25] MEDS ORDERED: nitroGLYCERIN-Tridil 50MG/D5W 250 ML IV PRN (19:40)
[2018-10-25 19:48] LABS: BASOPHILS # (AUTO) 0.1 X10'3 (0-0.2); BASOPHILS % (AUTO) 0.9 % (0-1); EOSINOPHILS # (AUTO) 0.1 X10'3 (0-0.9); EOSINOPHILS % (AUTO) 1.1 % (0-6); HEMATOCRIT 27.9 % (42.0-52.0); HEMOGLOBIN 9.2 g/dl (14.0-17.9); LYMPHOCYTES # (AUTO) 1.7 X10'3 (1.1-4.8); LYMPHOCYTES % (AUTO) 13.8 % (21-51); MEAN CORPUSCULAR HEMOGLOBIN 30.8 PG (27.0-31.0); MEAN CORPUSCULAR HGB CONC 33.1 g/dL (33.0-36.5); MEAN CORPUSCULAR VOLUME 92.9 FL (78-98); MEAN PLATELET VOLUME 5.7 FL (7.4-10.4); MONOCYTES # (AUTO) 0.7 X10'3 (0-0.9); MONOCYTES % (AUTO) 5.6 % (2-12); NEUTROPHILS # (AUTO) 9.7 X10'3 (1.8-7.7); NEUTROPHILS % (AUTO) 78.6 % (42-75); PLATELET COUNT 511 X10'3 (140-440); RED CELL DISTRIBUTION WIDTH 15.2 % (11.5-14.5); WHITE BLOOD COUNT 12.3 X10'3 (4.5-11.0)
[2018-10-25 20:02] LABS: PARTIAL THROMBOPLASTIN TIME 25 SECONDS (22-32)
--- NOTE | 2018-10-25 20:05 | NUR ---
1:1 WITH PATIENT, RADIOED BAKERY AND DELI SALES MANAGER TO TELL DR GRANADOS TO GET RT DOWN HERE FOR THE PATIENT.
[2018-10-25 20:13] LABS: ALANINE AMINOTRANSFERASE 20 U/L (12-78); ALBUMIN 1.9 G/DL (3.4-5.0); ALBUMIN/GLOBULIN RATIO 0.4 (1.1-1.5); ALKALINE PHOSPHATASE 157 IU/L (46-116); ANION GAP 11 (8-16); ASPARTATE AMINO TRANSFERASE 17 U/L (10-37); BILIRUBIN,TOTAL 0.3 MG/DL (0.1-1.0); BLOOD UREA NITROGEN 40 MG/DL (7-18); BUN/CREATININE RATIO 15.4 (5.4-32.0); CALCIUM 8.2 MG/DL (8.5-10.1); CHLORIDE 111 MMOL/L (99-107); CREATININE 2.59 MG/DL (0.60-1.10); GLUCOSE 168 MG/DL (70-104); MAGNESIUM 2.9 MG/DL (1.5-2.4); POTASSIUM 5.7 MMOL/L (3.5-5.1); SODIUM 143 MMOL/L (135-145); TOTAL CARBON DIOXIDE 20.9 MMOL/L (24-32); TOTAL PROTEIN 7.1 G/DL (6.4-8.2); eGFR 27 ML/MIN
--- NOTE | 2018-10-25 20:31 | NUR ---
ABG PER RT
--- NOTE | 2018-10-25 20:37 | NUR ---
LIGHTS DIMMED. PT APPEARING TO HAVE AN EASE OF BREATHING WITH BIPAP. TITRATING NTG.
[2018-10-25 20:41] LABS: ABG BASE EXCESS -7.8 mmol/L (-2.0-3.0); ABG HCO3 16.3 mmol/L (22.0-26.0); ABG OXYGEN SATURATION 95.6 % (95-98); ABG PCO2 (T) 28.5 mmHg (35.0-45.0); ABG PH (T) 7.375 (7.350-7.450); ABG PO2 (T) 84.8 mmHg (83-108); ALLEN'S TEST Positive; FCOHb 0.3 % (0.5-1.5); FMetHb 0.2 % (0.3-1.12); FO2Hb 95.1 % (94-100); MINUTE VOLUME 19 L/min; RESPIRATORY RATE 14 b/min; RESPIRATORY RATE (OBSERVED) 20 b/min; TOTAL HEMOGLOBIN 9.9 G/dl (14.0-17.9)
--- NOTE | 2018-10-25 20:50 | NUR ---
I GOT WARMED BLANKETS AND A PILLOW AND TUCKED HIM IN. HE IS RESTING/EYES CLOSED. REMAINING 1:1.
--- NOTE | 2018-10-25 20:53 | NUR ---
PBNP ELEVATED, NOTIFYING DR GRANADOS.
[2018-10-25] MEDS ORDERED: furosemide 10 MG/1 ML 10ml inj IV ONE (20:55)
[2018-10-25] MEDS ORDERED: labetalol 20mg/4ml (5mg/ml) syringe IV STA (21:04)
--- NOTE | 2018-10-25 21:04 | NUR ---
INFORMED DR GRANADOS OF BP/HR AND DOSE OF NTG. VO FOR LABETOLOL 10 MG IV OBTAINED, WRITTEN.
--- NOTE | 2018-10-25 21:11 | NUR ---
PT CURRENTLY ASLEEP. ADM BP MED. CONTINUE TO MONITOR. VS Q 5 MIN. CONTINUING 1:1.
[2018-10-25] MEDS ORDERED: dextrose ORAL solution 15 GM/59 ML bottle PO PRN ×2 (21:25)
[2018-10-25] MEDS ORDERED: acetaminophen 325mg tablet PO PRN (21:25)
[2018-10-25] MEDS ORDERED: glucagon, human recombinant 1mg kit SUBCUT PRN (21:25)
[2018-10-25] MEDS ORDERED: MESSAGE TO PHARMACY PO ONE (21:25)
[2018-10-25] MEDS ORDERED: dextrose 50%-water 50ml dispensing syringe IV PRN ×2 (21:25)
[2018-10-25] MEDS ORDERED: mag hydrox/Alum hydrox/simeth 30ml oral suspension PO PRN (21:25)
[2018-10-25] MEDS ORDERED: HYDROcodone/acetaminophen 5mg/325mg tablet PO PRN (21:25)
[2018-10-25] MEDS ORDERED: HYDROcodone/acetaminophen 10/325mg tab PO PRN (21:25)
[2018-10-25] MEDS ORDERED: magnesium hydroxide 30ml (MOM) UD suspension PO PRN (21:25)
[2018-10-25] MEDS ORDERED: morphine 2 MG/ML inj. syringe IV PRN ×2 (21:25)
--- NOTE | 2018-10-25 21:25 | NUR ---
RECEIVED VO FROM DR GRANADOS FOR LASIX 40MG IV X1DOSE NOW. ORDER PLACED AND ADITI MARTINEZ INFORMED.
--- NOTE | 2018-10-25 21:28 | NUR ---
PT VOIDED AND ALSO HAD A GREEN FROTHY LIQUID SLIMY BM. SENT BOTH TO LAB.
--- NOTE | 2018-10-25 21:29 | NUR ---
CT HERE FOR PT. DR GRANADOS NOTIFIED AND HE BELIEVES THE PATIENT WILL DO OK OFF BIPAP. PREPARING FOR CT.
--- NOTE | 2018-10-25 21:35 | NUR ---
RT AT AND REMOVED BIPAP. PT STATES TO PUT IT BACK ON. HE STATES THERE IS NO WAY HE CAN LAY FLAT FOR A CT.
[2018-10-25] MEDS: furosemide 40mg/4ml inj IV SCH (21:39)
[2018-10-25 21:40] LABS: CLARITY,URINE CLEAR (Clear); COLOR,URINE YELLOW (Yellow); GLUCOSE, URINE 100 mg/dl (Neg); KETONES,URINE NEGATIVE (Neg); LEUKOCYTE ESTERASE ,URINE NEGATIVE (Neg); NITRITES, URINE NEGATIVE (Neg); OCCULT BLOOD,URINE LARGE (Neg); PH,URINE 5.5 (4.8-8.0); PROTEIN,URINE >=300 mg/dl (Neg); UROBILINOGEN,URINE 0.2 E.U/dL (0.2-1.0)
[2018-10-25] MEDS ORDERED: nitroGLYCERIN 0.4mg/hour patch TD STA (21:49)
[2018-10-25 21:50] LABS: UA COLLECTION TYPE VOIDED
--- NOTE | 2018-10-25 21:50 | NUR ---
I CALLED DR GARCIA TO TELL HIM ABOUT TRIAL OFF BIPAP FOR CT AND HE STATED NOT TO WORRY ABOUT THE CT, THAT WAS NOT EMERGENT. INFORMED MD OF BP AND CURRENTLY DOSE OF NTG GTT. INSTRUCTED TO PLACE A NTG PATCH 0.4MG/HR ON PATIENT AND THEN WORK ON DECREASING THE NTG GTT.
[2018-10-25 21:54] LABS: WBC,URINE 0-4 /HPF (0-4)
[2018-10-25 21:55] LABS: AMORPHOUS URATES 1+; BACTERIA,URINE NONE SEEN /HPF (Neg); MUCUS STRANDS FEW /LPF (Neg); SQUAMOUS EPITHELIAL CELL,UR NONE SEEN /LPF (FEW)
[2018-10-25] MEDS ORDERED: famotidine 20mg tablet PO PRN (21:55)
--- NOTE | 2018-10-25 21:58 | NUR ---
PT ASKED FOR A LITTLE WATER TO DRINK, SO I GAVE HIM A BIT AND HE SAID HE HAD ABDOMINAL PAIN "FROM NOT EATING ALL DAY" HE OPTED FOR MORPHINE. ADM MORPHINE 2 MG IV.
--- NOTE | 2018-10-25 22:11 | NUR ---
KARLENE TALKED TO NURSE SUP AND NOW GOING TO TALK WITH DOC ABOUT GETTING PT ADMITED TO ICU
--- NOTE | 2018-10-25 22:18 | NUR ---
SPOKE TO JOSEMANUEL THE CLAY MODELER AND ALSO DR WAYNE RE: TITRATING NTG/APPROPRIATENESS OF ICU FOR THIS PATIENT.
--- NOTE | 2018-10-25 22:24 | NUR ---
DR WAYNE CAME INTO ROOM TO LOOK AT SPREADSHEET OF IV NTG/BP. DISCUSSED CASE.
[2018-10-25] MEDS ORDERED: enalaprilat dihydrate 2.5mg/2ml vial IV ONE (22:25)
--- NOTE | 2018-10-25 23:03 | NUR ---
TITRATED NTG. HOLDING PT IN ER R/T TITRATING NTG.
[2018-10-25] MEDS ORDERED: enalaprilat dihydrate 2.5mg/2ml vial IV STA (23:07)
--- NOTE | 2018-10-25 23:08 | NUR ---
SPOKE TO DR WAYNE IN RE TO BP AND INCREASE IN NTG, HE VO ANOTHER DOSE OF VASOTEC.
--- NOTE | 2018-10-25 23:14 | NUR ---
ADM ENALAPRIL 2.5 MG IV. PT IS CURRENTLY ASLEEP AND ON BIPAP
[2018-10-26] VITALS (25 sets, daily range): BP systolic 132–175; BP diastolic 70–88
--- NOTE | 2018-10-26 00:02 | NUR ---
DR WAYNE AT . GOAL SBP 110. INSTRUCTED TO TURN THE NTG UP NOW.
--- NOTE | 2018-10-26 00:14 | NUR ---
DR WAYNE AT AND NTG INCREASED PER ORDER. HE INFORMED ME TO GO UP TO GET THAT BP DOWN.
--- NOTE | 2018-10-26 00:15 | NUR ---
AQUATICS SPECIALISTADITI GODOY INFORMED ME THAT ARRANGEMENTS ARE BEING MADE TO CHANGE STATUS TO ICU ADMIT.
--- NOTE | 2018-10-26 00:26 | NUR ---
Remaining on a 1:1 and continuing to monitor closely and titrate NTG.
[2018-10-26] MEDS ORDERED: niCARDipine-NS 40mg/200ml IVPB 200 ML IV PRN (00:34)
[2018-10-26 00:42] LABS: HEMOGLOBIN A1C 7.7 % (4.5-6.2)
--- NOTE | 2018-10-26 00:47 | NUR ---
INFORMED DR WAYNE NTG AT 200 MCG/MIN AND WHAT BP IS.
--- NOTE | 2018-10-26 00:49 | NUR ---
PHARMACIST CALLED FOR A BP PARAMETER. INFORMED THAT DR. WAYNE WANTED SYSTOLIC AT 110.
--- NOTE | 2018-10-26 01:41 | NUR ---
SBAR TO BJ IN ICU. PREPARING PT FOR TRANSPORT. PT HAVING IMPROVED BP READING WITH THE MED CHANGE.
[2018-10-26] MEDS: ipratropium 0.5 MG/2.5ML nebule IH SCH ×2 (02:00→20:00)
[2018-10-26] MEDS: ondansetron/PF 4mg/2ml inj IV PRN (02:08)
[2018-10-26] MEDS: ipratropium/albuterol 3ml nebule IH SCH ×4 (02:27→20:35)
--- NOTE | 2018-10-26 03:30 | NUR ---
I have received report and assumed care of pt, pt admitted into 2044 via gurney on bipap, placed on ICU monitor without difficulties, hydrophilic dressing applied to sacral area no skin break down noted, 2 RN skin assessment complete,
--- NOTE | 2018-10-26 05:00 | NUR ---
No changes in condition noted, pt denies needs at this time, remains on Cardene drip to keep sbp less then 160
[2018-10-26 05:24] LABS: ANION GAP 9 (8-16); BLOOD UREA NITROGEN 41 MG/DL (7-18); BUN/CREATININE RATIO 15.1 (5.4-32.0); CHLORIDE 114 MMOL/L (99-107); CREATININE 2.71 MG/DL (0.60-1.10); GLUCOSE 178 MG/DL (70-104); POTASSIUM 5.8 MMOL/L (3.5-5.1); SODIUM 144 MMOL/L (135-145); TOTAL CARBON DIOXIDE 20.9 MMOL/L (24-32)
[2018-10-26 05:25] LABS: ALBUMIN 1.8 G/DL (3.4-5.0); eGFR 26 ML/MIN
[2018-10-26 05:39] LABS: BASOPHILS # (AUTO) 0.1 X10'3 (0-0.2); BASOPHILS % (AUTO) 0.8 % (0-1); EOSINOPHILS # (AUTO) 0.1 X10'3 (0-0.9); EOSINOPHILS % (AUTO) 1.3 % (0-6); HEMATOCRIT 25.4 % (42.0-52.0); HEMOGLOBIN 8.5 g/dl (14.0-17.9); LYMPHOCYTES # (AUTO) 1.4 X10'3 (1.1-4.8); LYMPHOCYTES % (AUTO) 13.8 % (21-51); MEAN CORPUSCULAR HGB CONC 33.3 g/dL (33.0-36.5); MEAN CORPUSCULAR VOLUME 92.9 FL (78-98); MEAN PLATELET VOLUME 5.9 FL (7.4-10.4); MONOCYTES # (AUTO) 0.5 X10'3 (0-0.9); MONOCYTES % (AUTO) 5.3 % (2-12); NEUTROPHILS % (AUTO) 78.8 % (42-75); PLATELET COUNT 431 X10'3 (140-440); RED BLOOD COUNT 2.73 X10'6 (4.70-6.10); RED CELL DISTRIBUTION WIDTH 15.1 % (11.5-14.5); WHITE BLOOD COUNT 10.2 X10'3 (4.5-11.0)
--- NOTE | 2018-10-26 06:00 | NUR ---
report given to rec rn plan of care reviewed
[2018-10-26] MEDS: FLUTICASONE SALMETEROL IH SCH ×2 (08:00→20:00)
[2018-10-26] MEDS: furosemide 40mg/4ml inj IV SCH ×2 (08:10→19:53)
[2018-10-26] MEDS: niCARDipine-NS 40mg/200ml IVPB 200 ML IV PRN ×3 (08:11→21:50)
[2018-10-26] MEDS: heparin, porcine 5000 units/ml vial SQ SCH ×2 (08:15→19:53)
[2018-10-26] MEDS: linezolid 600mg tablet PO SCH ×2 (08:15→19:53)
[2018-10-26] MEDS: sodium bicarbonate 650mg tablet PO SCH ×3 (08:15→20:59)
--- NOTE | 2018-10-26 11:09 | NUR ---
DM/zyvox consults: A1C 7.7. Pt seen recent admit s/p R BKA for written/verbal zyvox and DM eds w/ RD contact information provided. Pt admit w/ hypertensive urgency; new event per MD. Unsure if dietary non-compliance on zyvox or other factors. Will continue to monitor. Addendum: 10/26/18 at [address] Amended: Links added.
[2018-10-26 15:20] LABS: C DIFF ANTIGEN NEGATIVE (NEGATIVE); C DIFF SPECIMEN=DIARRHEA? ACCEPTABLE; C DIFFICILE TOXINS A&B NEGATIVE (Neg)
--- NOTE | 2018-10-26 18:20 | NUR ---
Patient in room ICU 2044. I have received report from Sam RN and Tennille RN and had the opportunity to ask questions and assume patient care. Pt resting in bed on 2LNC with spo2 94%, Radha gtt infusing at 7.5mg/hr to keep SBP less than 160, infusing via right EJ 18g PIV, will titrate per protocol, see IV flowsheet for further information. No c/o pain, no s/s of distress, pt A&Ox4, call light in reach, side rails up. See interventions, eMAR, and EMR for further information. All monitoring alarms audible. Will continue to monitor.
[2018-10-26] MEDS: insulin Lispro (HumaLOG) vial - multi-dose SQ SCH (19:00)
[2018-10-26] MEDS: lactobacillus rhamnosus 10,000 MMU CELLS/CAPSULE PO SCH (19:53)
[2018-10-26] MEDS: pantoprazole 40 MG vial IV SCH (20:51)
[2018-10-26] MEDS: insulin glargine (Lantus) pen - multi-dose SQ SCH (21:01)
[2018-10-27] VITALS (23 sets, daily range): BP systolic 132–178; BP diastolic 67–88
[2018-10-27] MEDS: ipratropium 0.5 MG/2.5ML nebule IH SCH ×4 (02:00→20:00)
[2018-10-27] MEDS: ipratropium/albuterol 3ml nebule IH SCH ×4 (02:23→20:34)
[2018-10-27 05:01] LABS: BASOPHILS # (AUTO) 0.1 X10'3 (0-0.2); BASOPHILS % (AUTO) 1.1 % (0-1); EOSINOPHILS # (AUTO) 0.2 X10'3 (0-0.9); EOSINOPHILS % (AUTO) 2.2 % (0-6); HEMATOCRIT 23.6 % (42.0-52.0); HEMOGLOBIN 7.8 g/dl (14.0-17.9); LYMPHOCYTES # (AUTO) 2.1 X10'3 (1.1-4.8); LYMPHOCYTES % (AUTO) 27.1 % (21-51); MEAN CORPUSCULAR HEMOGLOBIN 30.7 PG (27.0-31.0); MEAN PLATELET VOLUME 5.9 FL (7.4-10.4); MONOCYTES # (AUTO) 0.6 X10'3 (0-0.9); MONOCYTES % (AUTO) 7.1 % (2-12); NEUTROPHILS # (AUTO) 4.9 X10'3 (1.8-7.7); NEUTROPHILS % (AUTO) 62.5 % (42-75); PLATELET COUNT 306 X10'3 (140-440); RED BLOOD COUNT 2.53 X10'6 (4.70-6.10); RED CELL DISTRIBUTION WIDTH 15.4 % (11.5-14.5); WHITE BLOOD COUNT 7.8 X10'3 (4.5-11.0)
[2018-10-27 05:06] LABS: ALBUMIN 1.7 G/DL (3.4-5.0); ANION GAP 8 (8-16); BLOOD UREA NITROGEN 37 MG/DL (7-18); BUN/CREATININE RATIO 13.6 (5.4-32.0); CALCIUM 7.8 MG/DL (8.5-10.1); CHLORIDE 111 MMOL/L (99-107); CREATININE 2.73 MG/DL (0.60-1.10); GLUCOSE 143 MG/DL (70-104); POTASSIUM 5.3 MMOL/L (3.5-5.1); SODIUM 142 MMOL/L (135-145); TOTAL CARBON DIOXIDE 22.9 MMOL/L (24-32); eGFR 25 ML/MIN
--- NOTE | 2018-10-27 06:29 | NUR ---
Problems reprioritized. Patient report given, questions answered & plan of care reviewed with Liz PENNINGTON.
--- NOTE | 2018-10-27 06:30 | NUR ---
Patient in room CICU 2009. I have received report from Shaista Smiley RN and had the opportunity to ask questions and assume patient care.
[2018-10-27] MEDS: pantoprazole 40 MG vial IV SCH (08:00)
[2018-10-27] MEDS: FLUTICASONE SALMETEROL IH SCH ×2 (08:00→20:00)
[2018-10-27] MEDS: furosemide 40mg/4ml inj IV SCH ×2 (08:33→20:30)
[2018-10-27] MEDS: linezolid 600mg tablet PO SCH ×2 (08:33→20:30)
[2018-10-27] MEDS: sodium bicarbonate 650mg tablet PO SCH ×3 (08:33→20:30)
[2018-10-27] MEDS: lactobacillus rhamnosus 10,000 MMU CELLS/CAPSULE PO SCH ×2 (08:33→20:30)
[2018-10-27] MEDS: heparin, porcine 5000 units/ml vial SQ SCH ×2 (08:34→20:30)
[2018-10-27] MEDS: insulin Lispro (HumaLOG) vial - multi-dose SQ SCH ×3 (09:13→18:57)
--- NOTE | 2018-10-27 09:30 | NUR ---
Attempted to reach renée potter, as patient has had an amputation on 10/15/18 that she was following prior to his discharge. Patient has haven. Will follow up, as no one answered.
--- NOTE | 2018-10-27 09:33 | NUR ---
Refusing to get up in the chair. When asked if I can do anything he says no. Ask if he is comfortable he says he's fine. He has a flat affect and is short. He will not discuss any issues with me; have ordered social worker masters and case management in hopes of assessing his needs.;
[2018-10-27] MEDS: niCARDipine-NS 40mg/200ml IVPB 200 ML IV PRN ×5 (10:27→22:42)
--- NOTE | 2018-10-27 10:45 | NUR ---
Holly Labor/Excavator and myself went in to educate patient. He is angry that services were not there for him at his home last week and he "just wants to breathe". We came up with a plan to move forward to care for him, he is agreeable and says that he will try. I have included floor framer for high protein supplements and fine-tuning his menu. I have also added PT and wound care. He seems satisfied with these ideas.
--- NOTE | 2018-10-27 12:45 | NUR ---
PT brought patient bands for arm exercises. PT will work with him today, he agreed to work with them.
--- NOTE | 2018-10-27 13:00 | NUR ---
Wound care nurse assessed patient, patient refuses to turn for her as well. She was able to re-dress his right stump and will place orders for daily and PRN changes.
--- NOTE | 2018-10-27 17:40 | NUR ---
Attempted multiple times throughout the day to reach Shalini Peters, left a message. Patient had BKA on 10/12, haven need to be reassessed.
--- NOTE | 2018-10-27 18:28 | NUR ---
Problems reprioritized. Patient report given, questions answered & plan of care reviewed with Shaista Hawkins RN.
[2018-10-27] MEDS: pantoprazole 40mg Tablet.DR PO SCH (20:30)
[2018-10-27] MEDS: insulin glargine (Lantus) pen - multi-dose SQ SCH (20:39)
[2018-10-28] VITALS (24 sets, daily range): BP systolic 123–179; BP diastolic 64–89
[2018-10-28] MEDS: ipratropium/albuterol 3ml nebule IH SCH ×4 (02:00→20:00)
[2018-10-28 04:30] LABS: BASOPHILS # (AUTO) 0.1 X10'3 (0-0.2); BASOPHILS % (AUTO) 0.9 % (0-1); EOSINOPHILS # (AUTO) 0.2 X10'3 (0-0.9); HEMATOCRIT 23.1 % (42.0-52.0); HEMOGLOBIN 7.6 g/dl (14.0-17.9); LYMPHOCYTES # (AUTO) 2.4 X10'3 (1.1-4.8); LYMPHOCYTES % (AUTO) 31.7 % (21-51); MEAN CORPUSCULAR HEMOGLOBIN 30.5 PG (27.0-31.0); MEAN CORPUSCULAR HGB CONC 33.1 g/dL (33.0-36.5); MEAN CORPUSCULAR VOLUME 92.2 FL (78-98); MEAN PLATELET VOLUME 5.9 FL (7.4-10.4); MONOCYTES # (AUTO) 0.6 X10'3 (0-0.9); MONOCYTES % (AUTO) 7.9 % (2-12); NEUTROPHILS # (AUTO) 4.4 X10'3 (1.8-7.7); NEUTROPHILS % (AUTO) 57.5 % (42-75); PLATELET COUNT 235 X10'3 (140-440); RED BLOOD COUNT 2.51 X10'6 (4.70-6.10); RED CELL DISTRIBUTION WIDTH 14.9 % (11.5-14.5); WHITE BLOOD COUNT 7.6 X10'3 (4.5-11.0)
[2018-10-28 04:31] LABS: ALBUMIN 1.7 G/DL (3.4-5.0); ANION GAP 8 (8-16); BLOOD UREA NITROGEN 37 MG/DL (7-18); BUN/CREATININE RATIO 13.2 (5.4-32.0); CALCIUM 7.6 MG/DL (8.5-10.1); CHLORIDE 110 MMOL/L (99-107); CREATININE 2.81 MG/DL (0.60-1.10); GLUCOSE 130 MG/DL (70-104); SODIUM 141 MMOL/L (135-145); TOTAL CARBON DIOXIDE 22.7 MMOL/L (24-32); eGFR 25 ML/MIN
--- NOTE | 2018-10-28 06:18 | NUR ---
Problems reprioritized. Patient report given, questions answered & plan of care reviewed with Bryan PENNINGTON.
[2018-10-28] MEDS: ondansetron/PF 4mg/2ml inj IV PRN ×2 (07:27→07:39)
[2018-10-28] MEDS: lactobacillus rhamnosus 10,000 MMU CELLS/CAPSULE PO SCH ×2 (07:40→20:37)
[2018-10-28] MEDS: heparin, porcine 5000 units/ml vial SQ SCH ×2 (07:40→20:38)
[2018-10-28] MEDS: pantoprazole 40mg Tablet.DR PO SCH ×2 (07:41→20:42)
[2018-10-28] MEDS: furosemide 40mg/4ml inj IV SCH ×2 (07:41→20:36)
[2018-10-28] MEDS: niCARDipine-NS 40mg/200ml IVPB 200 ML IV PRN ×3 (07:41→23:01)
[2018-10-28] MEDS: sodium bicarbonate 650mg tablet PO SCH ×3 (07:41→20:37)
[2018-10-28] MEDS: FLUTICASONE SALMETEROL IH SCH ×2 (08:00→20:00)
[2018-10-28] MEDS: CITALOpram 10mg tablet PO SCH (13:19)
[2018-10-28] MEDS: labetalol 100mg tablet PO SCH ×2 (13:19→20:36)
[2018-10-28] MEDS: metoclopramide 10mg tablet PO SCH ×2 (14:00→20:48)
--- NOTE | 2018-10-28 18:30 | NUR ---
Patient in room CICU 2009. I have received report from Bryan PENNINGTON and had the opportunity to ask questions and assume patient care. Pt resting in bed on room air with spo2 at 95%, no c/o pain, niCardipine gtt to keep SBP less than 160 infusing via midline, see IV flowsheet, eMAR, EMR for further information. Will continue to monitor.
[2018-10-28] MEDS: insulin Lispro (HumaLOG) vial - multi-dose SQ SCH (19:12)
[2018-10-28] MEDS: insulin glargine (Lantus) pen - multi-dose SQ SCH (20:42)
[2018-10-29] VITALS (19 sets, daily range): BP systolic 132–166; BP diastolic 64–87
--- NOTE | 2018-10-29 | NUR ---
Pt awake watching TV. No change in condition.
[2018-10-29] MEDS: metoclopramide 10mg tablet PO SCH ×2 (01:49→08:00)
[2018-10-29] MEDS: niCARDipine-NS 40mg/200ml IVPB 200 ML IV PRN (03:02)
[2018-10-29] MEDS: ipratropium/albuterol 3ml nebule IH SCH ×4 (03:18→20:05)
[2018-10-29 04:37] LABS: BASOPHILS # (AUTO) 0.1 X10'3 (0-0.2); BASOPHILS % (AUTO) 0.8 % (0-1); EOSINOPHILS # (AUTO) 0.1 X10'3 (0-0.9); EOSINOPHILS % (AUTO) 1.8 % (0-6); HEMOGLOBIN 7.6 g/dl (14.0-17.9); LYMPHOCYTES # (AUTO) 2.4 X10'3 (1.1-4.8); LYMPHOCYTES % (AUTO) 28.7 % (21-51); MEAN CORPUSCULAR HEMOGLOBIN 30.5 PG (27.0-31.0); MEAN CORPUSCULAR HGB CONC 33.1 g/dL (33.0-36.5); MEAN PLATELET VOLUME 6.2 FL (7.4-10.4); MONOCYTES # (AUTO) 0.6 X10'3 (0-0.9); MONOCYTES % (AUTO) 7.6 % (2-12); NEUTROPHILS # (AUTO) 5.1 X10'3 (1.8-7.7); NEUTROPHILS % (AUTO) 61.1 % (42-75); PLATELET COUNT 213 X10'3 (140-440); RED BLOOD COUNT 2.49 X10'6 (4.70-6.10); RED CELL DISTRIBUTION WIDTH 15.1 % (11.5-14.5); WHITE BLOOD COUNT 8.3 X10'3 (4.5-11.0)
[2018-10-29 04:48] LABS: ALBUMIN 1.8 G/DL (3.4-5.0); ANION GAP 7 (8-16); BLOOD UREA NITROGEN 35 MG/DL (7-18); BUN/CREATININE RATIO 11.9 (5.4-32.0); CALCIUM 7.6 MG/DL (8.5-10.1); CHLORIDE 110 MMOL/L (99-107); CREATININE 2.95 MG/DL (0.60-1.10); GLUCOSE 137 MG/DL (70-104); POTASSIUM 5.4 MMOL/L (3.5-5.1); SODIUM 140 MMOL/L (135-145); TOTAL CARBON DIOXIDE 23.1 MMOL/L (24-32); eGFR 23 ML/MIN
--- NOTE | 2018-10-29 06:30 | NUR ---
Problems reprioritized. Patient report given, questions answered & plan of care reviewed with Roosevelt PENNINGTON.
--- NOTE | 2018-10-29 06:52 | NUR ---
Patient in room CICU 2009. I have received report from Shaista and had the opportunity to ask questions and assume patient care.
[2018-10-29] MEDS: CITALOpram 10mg tablet PO SCH (07:47)
[2018-10-29] MEDS: labetalol 100mg tablet PO SCH ×2 (07:47→22:36)
[2018-10-29] MEDS: pantoprazole 40mg Tablet.DR PO SCH ×2 (07:48→22:36)
[2018-10-29] MEDS: sodium bicarbonate 650mg tablet PO SCH (07:48)
[2018-10-29] MEDS: lactobacillus rhamnosus 10,000 MMU CELLS/CAPSULE PO SCH ×2 (07:48→22:35)
[2018-10-29] MEDS: heparin, porcine 5000 units/ml vial SQ SCH ×2 (07:49→22:44)
[2018-10-29] MEDS: furosemide 40mg/4ml inj IV SCH ×2 (07:49→22:37)
[2018-10-29] MEDS: FLUTICASONE SALMETEROL IH SCH (07:58)
--- NOTE | 2018-10-29 08:00 | NUR ---
0745 Attempted physical assessment, pt refused. S1 and S2 heard with no extra sounds. Lung sounds were diminished and clear throughout. +4 pitting edema noted LLE. Radial pulses bounding bilaterally. Bowel sounds present. Per patient request, will complete dressing change later today after he has rested. Offered breakfast tray, patient placed earplugs and eyemask on and denied breakfast at this time. Morning med pass completed. Cardene gtt titrated to 5, sys BP 175.
--- NOTE | 2018-10-29 08:28 | NUR ---
0800- Pt very non communicative this am. States he did not sleep last night. Lungs clear, lle +4 pitting edema. Dressing change to RBKA site to happen later.SBP > 170, am labetalol given, increased cardene to 5. Patient unwilling to have more assessed. 0830- Patients mother called, "What did you do to him? He hasnt called me?" aggressive with tone and conversation. Explained patient was resting, did not sleep well , offered to let her speak with him, "No, I may have to call a dress marker, you all keep do things wrong." Again offered for her to speak with son. She denied.
[2018-10-29] MEDS ORDERED: labetalol 100mg tablet PO ONE (09:40)
[2018-10-29] MEDS: insulin Lispro (HumaLOG) vial - multi-dose SQ SCH ×2 (10:38→15:04)
[2018-10-29] MEDS ORDERED: simethicone 125mg capsule PO PRN (11:05)
--- NOTE | 2018-10-29 11:13 | NUR ---
1030 rounds- gas x PRN ordered per patient request, Serum bicarb this am was 23.1, sodium bicarb decreased to BID, Reglan changed to PRN. May transfer to ortho/ neuro when cardene off. Marianela Peters rounded and haven to stay in one more week.
--- NOTE | 2018-10-29 17:28 | NUR ---
Problems reprioritized. Patient report given, questions answered & plan of care reviewed with Ct on ortho.
--- NOTE | 2018-10-29 17:30 | NUR ---
Patient in room CICU 2009. I have received report from Roosevelt in ICU and had the opportunity to ask questions and assume patient care.
--- NOTE | 2018-10-29 17:50 | NUR ---
Pt arrived on the floor, tucked in provided comfort measures.
--- NOTE | 2018-10-29 18:34 | NUR ---
Problems reprioritized. Patient report given, questions answered & plan of care reviewed with Mary.
--- NOTE | 2018-10-29 22:00 | NUR ---
pt refused to have nurse unwrap his stump church history teacher to assess site per pt dressing was done earlier in the shift
[2018-10-29] MEDS: insulin glargine (Lantus) pen - multi-dose SQ SCH (22:51)
[2018-10-30] MEDS: sodium bicarbonate 650mg tablet PO SCH ×3 (00:18→20:00)
[2018-10-30] MEDS: ipratropium/albuterol 3ml nebule IH SCH ×3 (02:00→14:00)
[2018-10-30 06:00] VITALS: BP 160/84
[2018-10-30 07:20] LABS: BASOPHILS % (AUTO) 0.7 % (0-1); EOSINOPHILS # (AUTO) 0.2 X10'3 (0-0.9); EOSINOPHILS % (AUTO) 2.7 % (0-6); HEMATOCRIT 23.1 % (42.0-52.0); HEMOGLOBIN 7.8 g/dl (14.0-17.9); LYMPHOCYTES # (AUTO) 2.3 X10'3 (1.1-4.8); LYMPHOCYTES % (AUTO) 32.3 % (21-51); MEAN CORPUSCULAR HEMOGLOBIN 30.9 PG (27.0-31.0); MEAN CORPUSCULAR HGB CONC 33.9 g/dL (33.0-36.5); MEAN CORPUSCULAR VOLUME 91.4 FL (78-98); MEAN PLATELET VOLUME 6.5 FL (7.4-10.4); MONOCYTES # (AUTO) 0.6 X10'3 (0-0.9); MONOCYTES % (AUTO) 7.9 % (2-12); NEUTROPHILS % (AUTO) 56.4 % (42-75); PLATELET COUNT 170 X10'3 (140-440); RED BLOOD COUNT 2.53 X10'6 (4.70-6.10); RED CELL DISTRIBUTION WIDTH 15.2 % (11.5-14.5)
[2018-10-30 07:33] LABS: ALBUMIN 1.9 G/DL (3.4-5.0); ANION GAP 8 (8-16); BLOOD UREA NITROGEN 34 MG/DL (7-18); BUN/CREATININE RATIO 12.1 (5.4-32.0); CALCIUM 8.1 MG/DL (8.5-10.1); CHLORIDE 109 MMOL/L (99-107); CREATININE 2.82 MG/DL (0.60-1.10); GLUCOSE 122 MG/DL (70-104); POTASSIUM 5.6 MMOL/L (3.5-5.1); SODIUM 140 MMOL/L (135-145); TOTAL CARBON DIOXIDE 23.3 MMOL/L (24-32); eGFR 25 ML/MIN
[2018-10-30] MEDS: FLUTICASONE SALMETEROL IH SCH ×2 (08:40→20:00)
[2018-10-30] MEDS: insulin Lispro (HumaLOG) vial - multi-dose SQ SCH ×2 (09:00→14:06)
[2018-10-30] MEDS: lactobacillus rhamnosus 10,000 MMU CELLS/CAPSULE PO SCH ×2 (09:11→20:00)
[2018-10-30] MEDS: furosemide 40mg/4ml inj IV SCH (09:11)
[2018-10-30] MEDS: labetalol 100mg tablet PO SCH (09:11)
[2018-10-30] MEDS: CITALOpram 10mg tablet PO SCH (09:11)
[2018-10-30] MEDS: pantoprazole 40mg Tablet.DR PO SCH ×2 (09:11→20:00)
[2018-10-30] MEDS: heparin, porcine 5000 units/ml vial SQ SCH ×2 (09:12→20:00)
--- NOTE | 2018-10-30 13:43 | NUR ---
spoke to Dr Pickering regarding K 5.6, he states it is stable and there is "nothing to worry about". Will continue to monitor
--- NOTE | 2018-10-30 14:50 | NUR ---
Patient in room ORTHO 4014. I have received report from Hope Lehman and had the opportunity to ask questions and assume patient care.
--- NOTE | 2018-10-30 15:32 | NUR ---
Pt ate a sandwich brought in by family per previous RN Addendum: 10/30/[address] RN Amended: Links added.
[2018-10-30] MEDS ORDERED: ipratropium/albuterol 3ml nebule IH SCH (17:29)
[2018-10-30 18:00] VITALS: BP 160/89
--- NOTE | 2018-10-30 18:24 | NUR ---
Patient in room ORTHO 4014. I have received report from ADITI Fofana and had the opportunity to ask questions and assume patient care.
--- NOTE | 2018-10-30 18:25 | NUR ---
Problems reprioritized. Patient report given, questions answered & plan of care reviewed with Gladys.
--- NOTE | 2018-10-30 19:00 | NUR ---
Dr. Pickering has been notified regarding pt. leaving AMA.Pt. was not happy with our service.We will continue with pt. discharge .February was notified also for the situation ,she came and talked to pt.
[2018-10-30] MEDS ORDERED: LABE100T5 PO (19:43)
[2018-10-30] MEDS ORDERED: FURO40TA4 PO (19:43)
[2018-10-30] MEDS ORDERED: furosemide 40mg tablet PO SCH (20:00)
[2018-10-30] MEDS ORDERED: labetalol 100mg tablet PO SCH (20:00)
--- NOTE | 2018-10-30 21:10 | NUR ---
Pt. discharge home with his brother and sister in-law.Discharge order has been given to pt.
== END 2018-10-30 21:10 | disposition left against medical advice (07) | DRG 133 ==
LOC: ER 19:23 → EDBEDREQSVC 10-26 01:00 → EDBEDREQTM 10-26 01:00 → ICU 2S 10-26 01:51 → CICU 2S 10-26 21:06 → ORTHO 4S 10-29 17:55
PROVIDERS: ADMIT Internal Medicine
PROC: 5A09357 Assistance with Respiratory Ventilation, Less than 24 Consecutive Hours, Continuous Positive Airway Pressure (ICD-10-PCS; principal; 2018-10-25)
PROC: 5A09357 Assistance with Respiratory Ventilation, Less than 24 Consecutive Hours, Continuous Positive Airway Pressure (ICD-10-PCS; 2018-10-26)
DX: J96.01 Acute respiratory failure with hypoxia (principal); J81.0 Acute pulmonary edema; E11.22 Type 2 diabetes mellitus with diabetic chronic kidney disease; E87.5 Hyperkalemia; I13.0 Hypertensive heart and chronic kidney disease with heart failure and stage 1 through stage 4 chronic kidney disease, or unspecified chronic kidney disease; I50.9 Heart failure, unspecified; D72.829 Elevated white blood cell count, unspecified; F12.90 Cannabis use, unspecified, uncomplicated; Z53.21 Procedure and treatment not carried out due to patient leaving prior to being seen by health care provider; F17.210 Nicotine dependence, cigarettes, uncomplicated; I16.0 Hypertensive urgency; J45.909 Unspecified asthma, uncomplicated; N18.9 Chronic kidney disease, unspecified; F32.9 Major depressive disorder, single episode, unspecified; R00.0 Tachycardia, unspecified; Z89.511 Acquired absence of right leg below knee; Z88.0 Allergy status to penicillin; Z90.49 Acquired absence of other specified parts of digestive tract; Z79.4 Long term (current) use of insulin; Z79.899 Other long term (current) drug therapy
CPT/HCPCS: 36415; 36600; 71045; 71250; 76937; 80048; 80053; 81001; 82803; 82948; 83036; 83605; 83735; 83880; 84145; 84484; 85018; 85025; 85610; 85730; 87040; 87081; 87324; 87449; 93005; 94640; 94660; 94668; 94760; 96365; 96375; 96376; 97110; 97161; 97530; 99285; C9113; G0378; J1644; J1815; J1940; J2270; J2405; J3490; J8597

== ENCOUNTER 2019-12-13 17:20 | Emergency (ER) | payer MEDICAID ==
[~2019-12-13] VITALS: Ht 198.1 cm; Wt 163.6 kg
[~2019-12-13 17:20] MED LIST changes: +FURO40TA4 PO; +LABE100T5 PO; -LINE600T14 PO; -LOSA50TA64 PO
[2019-12-13] MEDS ORDERED: normal saline 1000ML IV soln IV ONE (18:00)
[2019-12-13] MEDS ORDERED: vancomycin/NS 1 GM ADD-VANTAGE 250 ML IV ONE (18:00)
[2019-12-13 18:30] LABS: BASOPHILS # (AUTO) 0.1 X10'3 (0-0.2); BASOPHILS % (AUTO) 0.6 % (0-1); EOSINOPHILS # (AUTO) 0.3 X10'3 (0-0.9); EOSINOPHILS % (AUTO) 2.5 % (0-6); HEMATOCRIT 30.4 % (42.0-52.0); LYMPHOCYTES # (AUTO) 2.1 X10'3 (1.1-4.8); LYMPHOCYTES % (AUTO) 20.8 % (21-51); MEAN CORPUSCULAR HEMOGLOBIN 29.4 PG (27.0-31.0); MEAN CORPUSCULAR VOLUME 89.1 FL (78-98); MEAN PLATELET VOLUME 7.4 FL (7.4-10.4); MONOCYTES # (AUTO) 0.6 X10'3 (0-0.9); MONOCYTES % (AUTO) 5.7 % (2-12); NEUTROPHILS % (AUTO) 70.4 % (42-75); PLATELET COUNT 443 X10'3 (140-440); RED BLOOD COUNT 3.41 X10'6 (4.70-6.10); RED CELL DISTRIBUTION WIDTH 13.8 % (11.5-14.5)
[2019-12-13 18:50] LABS: ALANINE AMINOTRANSFERASE 19 U/L (12-78); ALBUMIN 2.7 G/DL (3.4-5.0); ALBUMIN/GLOBULIN RATIO 0.5 (1.1-1.5); ALKALINE PHOSPHATASE 86 IU/L (46-116); ANION GAP 11 (8-16); ASPARTATE AMINO TRANSFERASE 9 U/L (10-37); BILIRUBIN,TOTAL 0.2 MG/DL (0.1-1.0); BLOOD UREA NITROGEN 52 MG/DL (7-18); BUN/CREATININE RATIO 15.8 (5.4-32.0); CALCIUM 9.1 MG/DL (8.5-10.1); CHLORIDE 103 MMOL/L (99-107); GLUCOSE 277 MG/DL (70-104); MAGNESIUM 2.3 MG/DL (1.5-2.4); POTASSIUM 5.8 MMOL/L (3.5-5.1); SODIUM 134 MMOL/L (135-145); TOTAL CARBON DIOXIDE 20.5 MMOL/L (24-32); TOTAL PROTEIN 8.1 G/DL (6.4-8.2); eGFR 20 ML/MIN
[2019-12-13] MEDS ORDERED: ciprofloxacin 250mg tablet PO ONE (19:15)
[2019-12-13] MEDS ORDERED: CIPR-230 PO (19:19)
[2019-12-13] MEDS ORDERED: bacitracin 15gm ointment TP ONE (19:20)
[2019-12-13 20:35] LABS: CLARITY,URINE CLEAR (Clear); COLOR,URINE YELLOW (Yellow); GLUCOSE, URINE >=1000 mg/dl (Neg); KETONES,URINE NEGATIVE (Neg); LEUKOCYTE ESTERASE ,URINE NEGATIVE (Neg); NITRITES, URINE NEGATIVE (Neg); OCCULT BLOOD,URINE LARGE (Neg); PH,URINE 5.5 (4.8-8.0); PROTEIN,URINE >=300 mg/dl (Neg); UROBILINOGEN,URINE 0.2 E.U/dL (0.2-1.0)
[2019-12-13 20:42] LABS: UA COLLECTION TYPE NON-SPECIFIED
[2019-12-13 20:47] LABS: BACTERIA,URINE FEW /HPF (Neg); SQUAMOUS EPITHELIAL CELL,UR FEW /LPF (FEW); WBC,URINE 0-4 /HPF (0-4)
[2019-12-13 21:30] VITALS: BP 159/79
== END 2019-12-13 21:33 | disposition home or self-care (01) ==
LOC: ER 17:21
DX: E11.621 Type 2 diabetes mellitus with foot ulcer (principal); I10 Essential (primary) hypertension; F32.9 Major depressive disorder, single episode, unspecified; J45.909 Unspecified asthma, uncomplicated; Z79.899 Other long term (current) drug therapy; Z88.0 Allergy status to penicillin; Z98.890 Other specified postprocedural states
CPT/HCPCS: 36415; 71045; 73630; 80053; 81001; 83605; 83735; 84145; 85025; 87040; 93005; 96365; 99285; J3370; J7030

== ENCOUNTER 2021-05-14 12:15 | Day surgery (SDC) | payer MEDICAID ==
[~2021-05-14] VITALS: Ht 195.6 cm; Wt 147.3 kg
[2021-05-14 12:39] VITALS: BP 113/63
[2021-05-14] MEDS ORDERED: normal saline 1000ml 1,000 ML IV PRN (12:45)
[2021-05-14] MEDS ORDERED: OMEP40CA21 PO (12:53)
[2021-05-14] MEDS ORDERED: INSU100I39 SQ (12:53)
[2021-05-14] MEDS ORDERED: AMLO10TA13 PO (12:53)
[2021-05-14] MEDS ORDERED: IRBE300T18 PO (12:53)
[2021-05-14] MEDS ORDERED: AMLO5TAB16 PO (12:53)
[2021-05-14] MEDS ORDERED: ONDA8TAB13 (12:53)
[2021-05-14] MEDS ORDERED: NEED-1 (12:53)
[2021-05-14] MEDS ORDERED: CHOL20003 PO (12:53)
[2021-05-14] MEDS ORDERED: INSU100I45 SQ (12:53)
[2021-05-14] MEDS ORDERED: FLUT1BLS11 (12:53)
[2021-05-14] MEDS ORDERED: DICL100G30 (12:53)
[2021-05-14] MEDS ORDERED: CYCL5TAB PO (12:53)
[2021-05-14] MEDS ORDERED: ATOR20TA66 PO (12:53)
[2021-05-14] MEDS ORDERED: VITA0.4T2 PO (12:53)
[2021-05-14 13:21] LABS: ALBUMIN 3.2 G/DL (3.4-5.0); ANION GAP 13 (8-16); BLOOD UREA NITROGEN 73 MG/DL (7-18); BUN/CREATININE RATIO 5.6 (5.4-32.0); CALCIUM 8.6 MG/DL (8.5-10.1); CHLORIDE 104 MMOL/L (99-107); CREATININE 12.96 MG/DL (0.60-1.10); GLUCOSE 135 MG/DL (70-104); SODIUM 137 MMOL/L (135-145); TOTAL CARBON DIOXIDE 19.7 MMOL/L (24-32); eGFR 4 ML/MIN
[2021-05-14 13:22] LABS: BASOPHILS # (AUTO) 0.1 X10'3 (0-0.2); BASOPHILS % (AUTO) 0.5 % (0-1); EOSINOPHILS # (AUTO) 0.1 X10'3 (0-0.9); EOSINOPHILS % (AUTO) 1.1 % (0-6); HEMOGLOBIN 10.6 g/dl (14.0-17.9); LYMPHOCYTES # (AUTO) 2.6 X10'3 (1.1-4.8); LYMPHOCYTES % (AUTO) 20.8 % (21-51); MEAN CORPUSCULAR HEMOGLOBIN 28.6 PG (27.0-31.0); MEAN CORPUSCULAR HGB CONC 32.1 g/dL (33.0-36.5); MEAN PLATELET VOLUME 5.9 FL (7.4-10.4); MONOCYTES # (AUTO) 0.8 X10'3 (0-0.9); MONOCYTES % (AUTO) 6.7 % (2-12); NEUTROPHILS # (AUTO) 8.9 X10'3 (1.8-7.7); NEUTROPHILS % (AUTO) 70.9 % (42-75); PLATELET COUNT 497 X10'3 (140-440); RED CELL DISTRIBUTION WIDTH 17.3 % (11.5-14.5); WHITE BLOOD COUNT 12.5 X10'3 (4.5-11.0)
[2021-05-14 13:24] LABS: POTASSIUM 6.2 MMOL/L (3.5-5.1)
[2021-05-14] MEDS ORDERED: heparin 1,000unit/ml 10ml vial 10 ML ONE (14:04)
[2021-05-14] MEDS ORDERED: LIDOcaine 1% (10mg/ml)w/preservative inj. 20ml MDV ONE (14:04)
[2021-05-14 15:04] VITALS: BP 142/76
== END 2021-05-14 15:25 | disposition home or self-care (01) ==
LOC: SSTAY O 12:15
PROVIDERS: ATTEND Radiology Vascular & Interventional Radiology
DX: E11.22 Type 2 diabetes mellitus with diabetic chronic kidney disease (principal); N18.6 End stage renal disease; E87.5 Hyperkalemia; F17.210 Nicotine dependence, cigarettes, uncomplicated; Z72.89 Other problems related to lifestyle; F12.90 Cannabis use, unspecified, uncomplicated; Z79.4 Long term (current) use of insulin; Z79.899 Other long term (current) drug therapy; Z88.0 Allergy status to penicillin; Z90.49 Acquired absence of other specified parts of digestive tract; Z98.890 Other specified postprocedural states
CPT/HCPCS: 36556; 76937; 77001; 80048; 82948; 85025; C1751; C1769; C1894; J1644; J3490; A9270

== ENCOUNTER 2021-07-10 10:43 | Day surgery (SDC) | payer MEDICAID ==
[~2021-07-10] VITALS: Ht 195.6 cm; Wt 152.0 kg
[~2021-07-10 10:43] MED LIST changes: -ALBU8HFA PO; +AMLO10TA13 PO; +AMLO5TAB16 PO; +ATOR20TA66 PO; -ATRIN IH; +CHOL20003 PO; +CLOT15CR10 TP; +CYCL5TAB PO; +DICL100G30; +DIPH-115 PO; -FLUT1AER4 IH; +FLUT1BLS11; -FURO40TA4 PO; +INSU100I39 SQ; +INSU100I45 SQ; -INSU100V5 SQ; -INSU100V9 SQ; +IRBE300T18 PO; -LABE100T5 PO; -LIDO35.4 TOP; +NEED-1; +OMEP40CA21 PO; +ONDA8TAB13; -RANI-648 PO; -SODI650T29 PO; +VITA0.4T2 PO
[2021-07-10 11:00] VITALS: BP 120/55
[2021-07-10] MEDS ORDERED: normal saline 1000ml 1,000 ML IV PRN (11:10)
--- NOTE | 2021-07-10 12:10 | NUR ---
Dr. Soto at bedside. Procedure cancelled. Pt dc'd to home via WC with all belongings.
== END 2021-07-10 12:10 | disposition home or self-care (01) ==
LOC: SSTAY O 10:43
PROVIDERS: ATTEND Radiology Diagnostic Radiology
DX: T82.838A Hemorrhage due to vascular prosthetic devices, implants and grafts, initial encounter (principal); Z53.8 Procedure and treatment not carried out for other reasons; N18.4 Chronic kidney disease, stage 4 (severe); Z20.822 Contact with and (suspected) exposure to COVID-19; Z88.0 Allergy status to penicillin; Z88.5 Allergy status to narcotic agent; Y83.8 Other surgical procedures as the cause of abnormal reaction of the patient, or of later complication, without mention of misadventure at the time of the procedure; Y92.89 Other specified places as the place of occurrence of the external cause
CPT/HCPCS: 87635; C9803

== ENCOUNTER 2021-07-16 09:50 | Day surgery (SDC) | payer MEDICAID ==
[~2021-07-16] VITALS: Ht 195.6 cm; Wt 152.0 kg
[~2021-07-16 09:50] MED LIST changes: -AMLO5TAB16 PO; -CLOT15CR10 TP; -CYCL5TAB PO; -DIPH-115 PO; -NEED-1
[2021-07-16 10:22] VITALS: BP 146/77
[2021-07-16 10:29] LABS: BASOPHILS % (AUTO) 0.7 % (0-1); EOSINOPHILS # (AUTO) 0.1 X10'3 (0-0.9); EOSINOPHILS % (AUTO) 1.7 % (0-6); HEMATOCRIT 29.9 % (42.0-52.0); LYMPHOCYTES # (AUTO) 2.2 X10'3 (1.1-4.8); LYMPHOCYTES % (AUTO) 28.7 % (21-51); MEAN CORPUSCULAR HEMOGLOBIN 30.9 PG (27.0-31.0); MEAN CORPUSCULAR HGB CONC 33.4 g/dL (33.0-36.5); MEAN CORPUSCULAR VOLUME 92.6 FL (78-98); MEAN PLATELET VOLUME 6.1 FL (7.4-10.4); MONOCYTES # (AUTO) 0.5 X10'3 (0-0.9); MONOCYTES % (AUTO) 6.1 % (2-12); NEUTROPHILS # (AUTO) 4.7 X10'3 (1.8-7.7); NEUTROPHILS % (AUTO) 62.8 % (42-75); PLATELET COUNT 268 X10'3 (140-440); RED BLOOD COUNT 3.23 X10'6 (4.70-6.10); RED CELL DISTRIBUTION WIDTH 15.8 % (11.5-14.5); WHITE BLOOD COUNT 7.5 X10'3 (4.5-11.0)
[2021-07-16] MEDS ORDERED: HYDR-3972 PO (10:34)
[2021-07-16 10:38] LABS: ALBUMIN 3.5 G/DL (3.4-5.0); ANION GAP 16 (8-16); BLOOD UREA NITROGEN 85 MG/DL (7-18); BUN/CREATININE RATIO 6.3 (5.4-32.0); CALCIUM 8.6 MG/DL (8.5-10.1); CHLORIDE 100 MMOL/L (99-107); CREATININE 13.57 MG/DL (0.60-1.10); GLUCOSE 191 MG/DL (70-104); SODIUM 135 MMOL/L (135-145); TOTAL CARBON DIOXIDE 18.7 MMOL/L (24-32); eGFR 4 ML/MIN
[2021-07-16 10:41] LABS: POTASSIUM 6.5 MMOL/L (3.5-5.1)
[2021-07-16] MEDS ORDERED: heparin 1,000unit/ml 10ml vial 10 ML ONE (12:46)
[2021-07-16] MEDS ORDERED: LIDOcaine 1% W/epiNEPHrine 1:100,000 20ml vial ONE (12:46)
--- NOTE | 2021-07-16 13:10 | NUR ---
Patient left unit for procedure
[2021-07-16] MEDS ORDERED: IOHEXOL 300 MG/ML 30ML INFUS..BTL IV ONE (13:40)
[2021-07-16 14:10] VITALS: BP 153/87
== END 2021-07-16 14:20 | disposition home or self-care (01) ==
LOC: SSTAY O 09:50
PROVIDERS: ATTEND Preventive Medicine Aerospace Medicine
DX: E11.22 Type 2 diabetes mellitus with diabetic chronic kidney disease (principal); I12.0 Hypertensive chronic kidney disease with stage 5 chronic kidney disease or end stage renal disease; N18.6 End stage renal disease; Z90.49 Acquired absence of other specified parts of digestive tract; Z98.890 Other specified postprocedural states; Z79.899 Other long term (current) drug therapy; F17.210 Nicotine dependence, cigarettes, uncomplicated; Z72.89 Other problems related to lifestyle; Z88.0 Allergy status to penicillin
CPT/HCPCS: 36415; 36558; 76937; 77001; 80048; 85025; C1750; C1769; C1894; J1644; J3490; A9270

== ENCOUNTER 2023-01-04 08:25 | Inpatient (IN) | payer MEDICAID ==
[~2023-01-04] VITALS: Ht 190.5 cm; Wt 133.0 kg
[~2023-01-04 08:25] MED LIST changes: -DICL100G30; +DICL100G59; +HYDR-3972 PO; -INSU100I45 SQ; +INSU100I61 SQ
[2023-01-04] MEDS ORDERED: ondansetron/PF 4mg/2ml inj IV ONE (08:40)
[2023-01-04] MEDS ORDERED: morphine 4 MG/ML inj SYRINge IV PRN (08:40)
[2023-01-04] MEDS ORDERED: normal saline 1000ML IV soln IVB ONE (08:40)
--- NOTE | 2023-01-04 08:51 | NUR ---
pt has been seen by . okayed pt to have ice chips. ekg, chest xray completed. pt resting in [facility].
--- NOTE | 2023-01-04 09:31 | NUR ---
pt currently with ultrasound.
[2023-01-04 10:15] LABS: BASOPHILS % (AUTO) 0.3 % (0-1); EOSINOPHILS % (AUTO) 0 % (0-6); HEMATOCRIT 42.2 % (42.0-52.0); LYMPHOCYTES # (AUTO) 0.2 X10'3 (1.1-4.8); LYMPHOCYTES % (AUTO) 1.4 % (21-51); MEAN CORPUSCULAR HGB CONC 33.2 g/dL (33.0-36.5); MEAN CORPUSCULAR VOLUME 99.4 FL (78-98); MEAN PLATELET VOLUME 7.1 FL (7.4-10.4); MONOCYTES # (AUTO) 0.3 X10'3 (0-0.9); MONOCYTES % (AUTO) 2.2 % (2-12); NEUTROPHILS # (AUTO) 11.8 X10'3 (1.8-7.7); NEUTROPHILS % (AUTO) 96.1 % (42-75); PLATELET COUNT 283 X10'3 (140-440); RED BLOOD COUNT 4.25 X10'6 (4.70-6.10); RED CELL DISTRIBUTION WIDTH 14.8 % (11.5-14.5); WHITE BLOOD COUNT 12.3 X10'3 (4.5-11.0)
--- NOTE | 2023-01-04 10:21 | NUR ---
YARELIS SISTER [phone]. RIDE HOME, MOM BRYNN [phone]
[2023-01-04 10:34] LABS: ALANINE AMINOTRANSFERASE 25 U/L (12-78); ALBUMIN 3.7 G/DL (3.4-5.0); ALBUMIN/GLOBULIN RATIO 0.9 (1.1-1.5); ALKALINE PHOSPHATASE 91 IU/L (46-116); ANION GAP 19 (8-16); ASPARTATE AMINO TRANSFERASE 14 U/L (10-37); BILIRUBIN,TOTAL 0.6 MG/DL (0.1-1.0); BLOOD UREA NITROGEN 81 MG/DL (7-18); BUN/CREATININE RATIO 5.4 (10.0-20.0); CALCIUM 9.1 MG/DL (8.5-10.1); CHLORIDE 100 MMOL/L (99-107); CREATININE 15.08 MG/DL (0.60-1.10); GLUCOSE 196 MG/DL (70-104); LIPASE 299 U/L (16-77); SODIUM 138 MMOL/L (135-145); TOTAL CARBON DIOXIDE 19.2 MMOL/L (24-32); TOTAL PROTEIN 7.7 G/DL (6.4-8.2); eCRCL 7 ML/MIN; eGFR 3 ML/MIN
[2023-01-04 10:37] LABS: POTASSIUM 6.1 MMOL/L (3.5-5.1)
[2023-01-04] MEDS ORDERED: insulin regular, human 10 units/0.1 ml syringe IV ONE (11:10)
[2023-01-04] MEDS ORDERED: dextrose 50%-water 50ml dispensing syringe IV ONE (11:10)
[2023-01-04] MEDS ORDERED: sodium polystyrene sulfonate 15gm/60ml oral suspension PO ONE (11:10)
[2023-01-04] MEDS ORDERED: calcium chloride 100 MG/1 ML inj IV ONE (11:10)
[2023-01-04] MEDS ORDERED: albuterol 2.5 MG/3 ML nebule NEB ONE (11:10)
[2023-01-04] MEDS ORDERED: acetaminophen 325mg tablet PO PRN ×2 (11:25)
[2023-01-04] MEDS ORDERED: magnesium hydroxide 30ml (MOM) UD suspension PO PRN (11:25)
[2023-01-04] MEDS ORDERED: dextrose 50%-water 50ml dispensing syringe IV PRN ×2 (11:25)
[2023-01-04] MEDS ORDERED: glucagon, human recombinant 1mg kit SUBCUT PRN (11:25)
[2023-01-04] MEDS ORDERED: morphine 2 MG/ML inj. syringe IV PRN ×2 (11:25)
[2023-01-04] MEDS ORDERED: HYDROcodone/acetaminophen 5mg/325mg tablet PO PRN (11:25)
[2023-01-04] MEDS ORDERED: mag hydrox/Alum hydrox/simeth 30ml oral suspension PO PRN (11:25)
[2023-01-04] MEDS ORDERED: MESSAGE TO PHARMACY PO ONE (11:25)
[2023-01-04] MEDS ORDERED: insulin Lispro (HumaLOG) vial - multi-dose SQ SCH (11:25)
[2023-01-04] MEDS ORDERED: DEXTROSE 15 GM of carb/4 tabs (each vial/BOTTLE has 4 tablets) PO PRN ×2 (11:25)
[2023-01-04] MEDS ORDERED: ondansetron/PF 4mg/2ml inj IV PRN (11:25)
--- NOTE | 2023-01-04 12:21 | NUR ---
DR. BECKFORD INFORMED ME TO NOT GIVE THE MEDS THAT WERE ORDERED FOR THE PT. THE PT WOULD RECEIVING THEM AFTER DIALYSIS LATER TODAY. MEDS NOT GIVEN BY THIS NURSE.
[2023-01-04] MEDS ORDERED: heparin 1,000 units/ml 10ml inj HE ONE ×2 (12:30)
[2023-01-04 12:32] LABS: HEMOGLOBIN A1C 6.1 % (4.5-6.2)
[2023-01-04 13:00] VITALS: BP 128/92; PULSE 98; RESP 17; TEMP 96.9; O2SAT 97
--- NOTE | 2023-01-04 13:00 | NUR ---
Patient in room PCU 3010. I have received report from Sujata ED Nurse and had the opportunity to ask questions and assume patient care.
[2023-01-04 15:00] VITALS: BP 157/88; PULSE 82; RESP 11; TEMP 98.6; O2SAT 98
[2023-01-04 18:00] VITALS: BP 148/78; PULSE 95; RESP 18; TEMP 97.7; O2SAT 98
--- NOTE | 2023-01-04 18:42 | NUR ---
Patient in room PCU 3010. I have received report from Leidy PENNINGTON and had the opportunity to ask questions and assume patient care.
[2023-01-04 20:00] VITALS: RESP 18; O2SAT 96
[2023-01-04] MEDS ORDERED: furosemide 40mg/4ml inj IV SCH (20:00)
[2023-01-04] MEDS: docusate sod 100mg capsule PO SCH (20:00)
[2023-01-04] MEDS ORDERED: insulin glargine (Lantus) pen - multi-dose SQ SCH (21:00)
[2023-01-04 22:00] VITALS: BP 154/69; PULSE 95; RESP 18; TEMP 99.1; O2SAT 93
[2023-01-05 02:00] VITALS: BP 145/83; PULSE 88; RESP 18; TEMP 98.6; O2SAT 95
[2023-01-05 06:00] VITALS: BP 157/76; PULSE 73; RESP 15; TEMP 97.2; O2SAT 94
[2023-01-05 06:48] LABS: BASOPHILS % (AUTO) 0.7 % (0-1); EOSINOPHILS # (AUTO) 0.1 X10'3 (0-0.9); EOSINOPHILS % (AUTO) 2.2 % (0-6); HEMATOCRIT 36.8 % (42.0-52.0); HEMOGLOBIN 12.1 g/dl (14.0-17.9); LYMPHOCYTES # (AUTO) 1.1 X10'3 (1.1-4.8); LYMPHOCYTES % (AUTO) 19.6 % (21-51); MEAN CORPUSCULAR HEMOGLOBIN 32.8 PG (27.0-31.0); MEAN CORPUSCULAR HGB CONC 32.7 g/dL (33.0-36.5); MEAN CORPUSCULAR VOLUME 100.3 FL (78-98); MEAN PLATELET VOLUME 6.8 FL (7.4-10.4); MONOCYTES # (AUTO) 0.6 X10'3 (0-0.9); MONOCYTES % (AUTO) 11.8 % (2-12); NEUTROPHILS # (AUTO) 3.6 X10'3 (1.8-7.7); NEUTROPHILS % (AUTO) 65.7 % (42-75); PLATELET COUNT 238 X10'3 (140-440); RED BLOOD COUNT 3.67 X10'6 (4.70-6.10); RED CELL DISTRIBUTION WIDTH 14.6 % (11.5-14.5); WHITE BLOOD COUNT 5.5 X10'3 (4.5-11.0)
[2023-01-05 07:02] LABS: ALBUMIN 3.1 G/DL (3.4-5.0); ANION GAP 14 (8-16); BLOOD UREA NITROGEN 59 MG/DL (7-18); BUN/CREATININE RATIO 4.4 (10.0-20.0); CALCIUM 8.3 MG/DL (8.5-10.1); CHLORIDE 98 MMOL/L (99-107); CREATININE 13.39 MG/DL (0.60-1.10); GLUCOSE 139 MG/DL (70-104); POTASSIUM 5.2 MMOL/L (3.5-5.1); SODIUM 135 MMOL/L (135-145); TOTAL CARBON DIOXIDE 23.3 MMOL/L (24-32); eCRCL 8 ML/MIN; eGFR 4 ML/MIN
--- NOTE | 2023-01-05 07:17 | NUR ---
Problems reprioritized. Patient report given, questions answered & plan of care reviewed with Leidy PENNINGTON.
[2023-01-05] MEDS: docusate sod 100mg capsule PO SCH (08:00)
[2023-01-05] MEDS ORDERED: heparin 1,000unit/ml 10ml vial 10 ML IV ONE (08:35)
[2023-01-05] MEDS ORDERED: heparin 1,000 units/ml 10ml inj IV ONE (08:35)
[2023-01-05] MEDS ORDERED: heparin 1,000 units/ml 10ml inj HE ONE (08:40)
--- NOTE | 2023-01-05 09:00 | NUR ---
PAGER ID: [phone] MESSAGE: [id number]. Steve Carter. Med rec done. Pt asking about whether he can have his inhaler. Sounds wheezy on the right. Are we able to cancel the meds ordered by the ER that weren't given? Dr Galan saw pt today. Leidy [phone]
[2023-01-05 11:00] VITALS: BP 170/86; PULSE 79; RESP 16; TEMP 97.7; O2SAT 97
--- NOTE | 2023-01-05 12:49 | NUR ---
Pt D/C per hospitalist. Stable and appropriate for discharge. PIV removed, cannula intact. Tele discontinued. All belongings taken home by patient. Reviewed discharge instructions with patient, all questions and concerns addressed. No new RX sent. Pt was wheeled down to lobby by RN and taken home by patient's brother in law.
[2023-01-07 07:04] LABS: HBSAG SCREEN Negative (Negative)
== END 2023-01-05 12:49 | disposition home or self-care (01) | DRG 249 ==
LOC: ER 08:25 → ED HOLD 11:23 → PCU 3S 12:44
PROVIDERS: ADMIT Internal Medicine; ATTEND Internal Medicine
DX: A05.9 Bacterial foodborne intoxication, unspecified (principal); K85.90 Acute pancreatitis without necrosis or infection, unspecified; E87.20 Acidosis, unspecified; N18.6 End stage renal disease; R16.0 Hepatomegaly, not elsewhere classified; E10.22 Type 1 diabetes mellitus with diabetic chronic kidney disease; M48.54XA Collapsed vertebra, not elsewhere classified, thoracic region, initial encounter for fracture; K38.1 Appendicular concretions; E87.5 Hyperkalemia; F17.210 Nicotine dependence, cigarettes, uncomplicated; Z99.2 Dependence on renal dialysis; Z89.511 Acquired absence of right leg below knee; Z90.49 Acquired absence of other specified parts of digestive tract; Z88.0 Allergy status to penicillin; Z88.5 Allergy status to narcotic agent; Z79.899 Other long term (current) drug therapy
CPT/HCPCS: 36415; 71045; 74176; 76700; 80048; 80053; 82948; 83036; 83605; 83690; 84484; 85025; 87040; 87081; 87340; 96361; 96374; 99285; E1594; J1644; J1815; J1940; J2405; J7030

== ENCOUNTER 2024-12-26 14:00 | Inpatient (IN) | payer MEDICAID ==
[2024-12-26] VITALS (11 sets, daily range): BP systolic 151–198; BP diastolic 73–96; PULSE 65–73; RESP 9–22; TEMP 97.7–98.4; O2SAT 95–98
[~2024-12-26] VITALS: Ht 193 cm; Wt 121.5 kg
[~2024-12-26 14:00] MED LIST changes: -CHOL20003 PO; -DICL100G59; -IRBE300T18 PO; +IRBE300T26 PO; +ONDA-245; -ONDA8TAB13
--- NOTE | 2024-12-26 14:22 | Physician Documentation ---
History of Present Illness ~ General Stated Complaint: CARDIA Time Seen by MD: 14:32 Primary Medical Doctor: margarito valdez [place] Source: patient (2), RN/MD (Transferring provider) History of Present Illness Initial Comments Patient transferred to us from [facility] for concerns of heart block. He has a history of significant past medical problems including end-stage renal disease, dialysis dependent, was last dialyzed two days ago. He has a tunneled dialysis catheter in his left chest and no peripheral shunt. Patient presented there with a complaint of sudden dizziness, lightheadedness, and could not stand up. He had a prior history of occasional hypotension but was unable to check his blood pressure at home and called paramedics. On arrival he was found to have a normal blood pressure which has remained normal throughout his stay at the transferring facility, however heart rate has been in the 35-55 range. He has had a baseline underlying atrial fibrillation which is chronic for him, interspersed with periods of third-degree heart block. Patient has maintained blood pressure and has been mentating well throughout his stay there and has not required any outside pacing. He is status post Maze procedure at an outside facility in August and we do not have records. Pt is anticoagulated. At the transferring hospital the patient was found to have a creatinine greater than nine, potassium of 7.3 at around 11:30 a.m.. He had received albuterol and Kayexalate prior to contact with this hospital, and subsequently given insulin as well to help with the hyperkalemia. No repeat value ordered. On arrival, the patient tells me he is asymptomatic at this time. He has no chest pain, no dizziness, no shortness of breath. He has had no lower extremity edema. No symptoms at this time. He takes amiodarone and metformin, with last dose is likely this morning. Potassium 20 mg with last dose this morning. Medication Reconciliation Allergies: Coded Allergies: Penicillins (Verified Allergy, Mild, ITCHING, 12/26/24) Uncoded Allergies: "NARCOTIC NOONISIS" (Allergy, Unknown, 07/10/21) Scheduled Amlodipine Besylate (Amlodipine Besylate), 1 TAB PO DAILY, (Reported) Atorvastatin Calcium (Atorvastatin Calcium), 1 TAB PO HS, (Reported) Hydrocodone Bit/Acetaminophen (Hydrocodon-Acetaminophn 10-325 tablet), 1 TAB PO Q4H, (Reported) Insulin Lispro (Admelog Solostar), 10-30 UNITS SQ TID, (Reported) Ipratropium/Albuterol Sulfate (Combivent Respimat Inhal [place]), 1 PUFF IH QID, (Reported) Irbesartan (Irbesartan), 1 TAB PO DAILY, (Reported) Omeprazole (Prilosec), 1 CAP PO DAILY, (Reported) Vitamin B Complex/Folic Acid (B-Complex Tablet), 1 TAB PO DAILY, (Reported) Miscellaneous Medications Fluticasone Propion/Salmeterol (Wixela 500-50 Inhub), (Reported) Insulin Lispro (Insulin Lispro Kwikpen U-100), SQ, (Reported) Ondansetron 8mg ODT (Ondansetron Odt), (Reported) Past Medical History Past Medical History: Atrial Fibrillation, High Cholesterol, Hypertension, Asthma, Chronic Kidney Disease, Renal Disease, Diabetes Other Past Medical History: Dialysis dependent Past Surgical History: cholecystectomy, orthopedic surgeries Smoking Status: Never smoker Alcohol Use: Sober Drug Use: marijuana Lives In: Home Review of Systems All Other Systems at this time: Reviewed and Negative Physical Exam Physical Exam Physical Exam General: Pt is awake, alert, oriented x4 in no acute distress and well appearing. Flat affect. Head: Normocephalic and atraumatic. Eyes: Conjunctiva normal. ENT: Mucous membranes moist. Neck: Supple. Chest: Clear to auscultation bilaterally, without rales, rhonchi, or wheezes. There is no accessory muscle use or retractions. Cardiac: Regular rhythm and bradycardic without murmurs, gallops or rubs. Palpation of the chest wall is normal. Abd: Soft, nondistended, nontender, with normoactive bowel sounds. No guarding or rebound. Extremities: Within normal limits without cyanosis, clubbing, or edema. Status post right BKA Skin: [place], warm and dry with no significant rash appreciated. Neuro: Cranial nerves II-XII grossly intact. Progress Progress Note Laboratory data from transferring facility: WBC 6.8, hemoglobin 11.4, hematocrit 35.2, platelets 276 Troponin 0.023 Sodium 132, potassium 7.3, chloride 91, CO2 30, anion gap 11, glucose 177, BUN 48, creatinine 9.8, calcium 8.9, total bilirubin 0.7 Protime 16.4, INR 1.3 Results/Orders Results/Orders Orders - BETY VELAZCO MD Hospitalist (12/26/24 14:35) Fill Out Med Reconciliation (12/26/24 14:35) Md Francisco Manning (12/26/24 14:35) Monitor (12/26/24 14:35) Oxygen (12/26/24 14:35) Saline Lock (12/26/24 14:35) Pacer Pads (12/26/24 14:35) Completed Orders - BETY VELAZCO MD K (12/26/24 14:35) Vital Signs 12/26/24 12/26/24 14:09 14:50 Temp 98.4 Pulse 35 Resp 13 22 B/P (MAP) 161/77 Pulse Ox 100 O2 Flow Rate 0 Laboratory Tests Test 12/26/24 14:39 12/26/24 14:40 12/26/24 14:41 Glucometer 179 H Bedside Hemoglobin 12.2 L Bedside Hematocrit 36 L Bedside Sodium 132 L Bedside Potassium 7.0 *H Bedside Chloride 93 L Bedside Total CO2 27 Bedside Anion Gap 12 Bedside Blood Urea Nitrogen 44 H Bedside Creatinine 9.5 H Bedside Estimated GFR (eGFR) 6 BUN/Creatinine Ratio 4.6 L Bedside Glucose 162 H Bedside Ionized Calcium (Haylee) 1.03 Potassium Level 7.3 *H Phosphorus Level 6.3 H Magnesium Level 2.9 H Pro-B-Type Natriuretic Peptide 82502 H Re-Evaluation Re-Evaluation : Re-Evaluation Time: 14:43 Progress Repeat potassium on POC testing in ED = 7.0 EKG/XRAY/CT/US/VASC/MRI EKG : EKG Rate: 35 EKG: sinus mari, PAC(s) Additional Comment Biatrial enlargement. Consults/PCP Consults/PCP : Time Call Requested: 14:34 Consult Reason/Comments: Jaden, Dr. Blackwood, Dr. Galan Additional Comment 1500 Case d/w Dr. Blcakwood. He feels that they hyperkalemia, metoprolol, and amiodarone can be contributing to the bradycardia and asks that the medications be held, dopamine and/or atropine indicated if the patient becomes symptomatic. Continue efforts with bringing down potassium levels. [address] Vasquez. He agrees that the patient requires urgent dialysis to manage the potassium, and is on his way to the hospital to arrange it. Patient has also been seen by Dr. Scales, Hospitalist, and orders written. supervisor paper coating is prioritizing a room upstairs so the patient can be moved upstairs for dialysis, which can not be accomplished in the emergency department. Dr. Vasquez aware. 1600 Dr. Blackwood in ED to see pt Medical Decision Making Additional information obtaine: other Findings Differential Diagnosis Likely complicated patient presenting with history of atrial fibrillation now with intermittent episodes of third-degree heart block, maintaining blood pressure and mentation but with persistent bradycardia and requiring emergent cardiac evaluation and pacemaker placement. He has remained stable throughout his stay at [facility] as well as in the time he has been here, pacer pads placed, patient to be admitted to Hospitalist service with Cardiology and Nephrology Services to consult. Patient is 48 hours status post his last dialysis treatment and he may require urgent dialysis to help manage persistent hyperkalemia. Departure Time of Disposition: 14:40 Admitted to Inpatient Unit: yes, to hospitalist Admission Level of Care: PCU with Tele Impression: Primary Impression: Bradyarrhythmia Additional Impressions: Complete atrioventricular block Atrial fibrillation Qualified Codes: I48.91 - Unspecified atrial fibrillation Hyperkalemia Condition: Guarded Referrals: NO PRIMARY CARE PROVIDER (PCP) Education Educated: Patient Educated regarding: diagnosis, treatment Critical Care Note Total Time (mins): 31 Critical Care Note The very real possibility of a deterioration of this patient's condition required the highest level of my preparedness for sudden, emergent intervention. I provided critical care services, which included medication orders, frequent reevaluations of the patient's condition and response to treatment, ordering and reviewing test results, and discussing the case with various consultants. Excludes time spent performing separately billable procedures. The critical care time associated with the care of the patient [id number] Signature Scribe Signature: Attestation: BETY VELAZCO MD Dec 26, 2024 14:22
[2024-12-26 14:43] LABS: ISTAT ANION GAP 12.0 (8-12); ISTAT BUN 44.0 mg/dL (7-18); ISTAT CL 93.0 mmol/L (99-107); ISTAT CREATININE 9.5 mg/dL (0.8-1.3); ISTAT GLUCOSE 162.0 mg/dL (70-104); ISTAT HGB 12.2 g/dl (14.0-17.9); ISTAT Hct 36.0 %PCV (42-52); ISTAT IONIZED CALCIUM 1.03 mmol/L (1.03-1.32); ISTAT NA 132.0 mmol/L (135-145); ISTAT TOTAL CO2 27.0 mmol/L (24-32); ISTAT eGFR 6.0 ML/MIN; POC BUN/CREATININE RATIO 4.6 (5.4-32.0)
[2024-12-26] MEDS ORDERED: potassium Cl 20 mEq SR tablet PO PRN ×2 (15:00)
[2024-12-26] MEDS ORDERED: mag hydrox/Alum hydrox/simeth 30ml oral suspension PO PRN (15:00)
[2024-12-26] MEDS ORDERED: magnesium Cl slow-release 64mg tablet PO PRN (15:00)
[2024-12-26] MEDS ORDERED: magnesium hydroxide 30ml (MOM) UD suspension PO PRN (15:00)
[2024-12-26] MEDS ORDERED: ondansetron 4mg rapidly disintigrating tab PO PRN (15:00)
[2024-12-26] MEDS ORDERED: potassium Cl 40MEQ/1/2NS 520ml 520 ML IV PRN (15:00)
[2024-12-26] MEDS ORDERED: acetaminophen 650mg rectal suppository RC PRN (15:00)
[2024-12-26] MEDS ORDERED: magnesium sulf-water 4G/100mL 100 ML IV PRN (15:00)
[2024-12-26] MEDS ORDERED: magnesium sulf-water 2g/50mL 50 ML IV PRN (15:00)
[2024-12-26] MEDS: normal saline 1000ml 1,000 ML IV SCH (15:00)
[2024-12-26] MEDS ORDERED: bisacodyl 10mg suppository rectal RC PRN (15:00)
[2024-12-26 15:02] LABS: ISTAT K 7.0 mmol/L (3.5-5.1)
[2024-12-26 15:03] LABS: ISTAT K CONFIRMATION 7.2 mmol/L
--- NOTE | 2024-12-26 15:03 | HISTORY AND PHYSICAL ---
History & Physical Providers to Chief Complaint,, generalized weakness ~ History of Present Illness Reason for Admit\\Complaint: As above History of Present Illness This is a 49 years old white male with history of multiple medical problems including hypertension, multiple episode of pancreatitis, secondary to alcohol abuse, in the past, atrial fibrillation, status post Maze procedure August 2024, chronic pain syndrome on home opioids, diabetes mellitus type 2, GERD, hypotension, dyslipidemia, COPD, CHF status post cholecystectomy, presented to day to emergency department chief complaint generalized weakness associated with lightheadedness dizziness; in addition this is the Patient transferred to us from [facility] for concerns of heart block. He has a history of significant past medical problems including end-stage renal disease, dialysis dependent, was last dialyzed two days ago. He has a tunneled dialysis catheter in his left chest and no peripheral shunt. Patient presented there with a complaint of sudden dizziness, lightheadedness, and could not stand up. He had a prior history of occasional hypotension but was unable to check his blood pressure at home and called paramedics. On arrival he was found to have a normal blood pressure which has remained normal throughout his stay at the transferring facility, however heart rate has been in the 35-55 range. He has had a baseline underlying atrial fibrillation which is chronic for him, interspersed with periods of third-degree heart block. Patient has maintained blood pressure and has been mentating well throughout his stay there and has not required any outside pacing. He is status post Maze procedure at an outside facility in August and we do not have records. Pt is anticoagulated. At the transferring hospital the patient was found to have a creatinine greater than nine, potassium of 7.3 at around 11:30 a.m.. He had received albuterol and Kayexalate prior to contact with this hospital, and subsequently given insulin as well to help with the hyperkalemia. No repeat value ordered.On arrival, the patient tells me he is asymptomatic at this time. He has no chest pain, no dizziness, no shortness of breath. He has had no lower extremity edema. No symptoms at this time. Emergency department she was evaluated by physician and after consultation with recruiting scheduler and sports medicine physician decision was made to admit patient for further evaluation and treatment, no additional complaint or concern. Allergies: Coded Allergies: Penicillins (Verified Allergy, Mild, ITCHING, 12/26/24) Uncoded Allergies: "NARCOTIC NOONISIS" (Allergy, Unknown, 07/10/21) Active prescriptions Reviewed reconciled Home Medications Home Medications Active Reported Hydrocodon-Acetaminophn 10-325 tablet (Acetaminophen/Hydrocodone Bitart) 1 Each Tablet 1 Tab PO Q4H Ondansetron Odt (Ondansetron HCl) 8 Mg Tab.rapdis Insulin Lispro Kwikpen U-100 (Insulin Lispro) 100 Unit/1 Ml Insuln.pen SQ Amlodipine Besylate 10 Mg Tablet 1 Tab PO DAILY Atorvastatin Calcium 20 Mg Tablet 1 Tab PO HS Admelog Solostar (Insulin Lispro) 100 Unit/1 Ml Insuln.pen 10-30 Units SQ TID Prilosec (Omeprazole) 40 Mg Capsule 1 Cap PO DAILY Irbesartan 300 Mg Tablet 1 Tab PO DAILY B-Complex Tablet (Vitamin B Complex/Folic Acid) 0.4 Mg Tablet 1 Tab PO DAILY Wixela 500-50 Inhub (Fluticasone Propion/Salmeterol) 1 Each Blst.w.dev Combivent Respimat Inhal [place] (Albuterol/Ipratropium) 4 Gm Aer.w.adap 1 Puff IH QID MAY TAKE ADDITIONAL PUFFS, NTE 6 PUFFS DAILY Past Medical History Past Medical History As in HPI Past Surgical History Surgical History Comment As in HPI Family History Family History: Family history was reviewed; no changes noted. Past Social History Social History Comment Deny illicit drug abuse tobacco alcohol use live with the family good social support Health Maintenance Health Maintenance Noncontributory ROS ROS Constitutional : no fever , no chills, positive for generalized weakness. No diaphoresis. Allergic/Immunologic, no lymphadenopathy, no hives, no skin eruptions. Eyes, no recent visual changes, no eye pain, no photophobia. Ears, nose, mouth, throat, no sore throat, no nosebleed, no ear pain. Cardiovascular, no palpitations, skipped beats, chest pain, no peripheral edema, Respiratory, no dyspnea, orthopnea, cough, hemoptysis, chest wall pain. Gastrointestinal, no abdominal pain, nausea, vomiting, constipation or diarrhea. : no dysuria, hematuria, pelvic pain, urethral d/c. Endocrine, no polyuria, polydipsia, recent unintentional weight gain or loss. Hematologic/Lymphatic, no petechiae, no enlarged lymph nodes, no bone pain. Integumentary, no rash, no skin lesions, Musculoskeletal, no muscle aches, or pain, no muscle cramps, no recent change in gait Neurological, positive for dizziness, no headache, no syncope, no paresthesia. Psychiatric, no delusions, visual hallucinations, or hearing hallucinations. ROS - in rest is as in HPI. Exam Vitals: Vital Signs Date Time Temp Pulse Resp B/P (MAP) Pulse Ox O2 Delivery O2 Flow Rate FiO2 12/26/24 14:09 98.4 35 13 161/77 100 0 Vital signs, stable ,afebrile. Pulse Oximetry reflects adequate oxygenation. BMI is 35, weight 132 kg General: well developed, well nourished. Awake , alert, and oriented x4, resting comfortably in the bed, in no acute distress . Skin: Warm, dry, no pallor, no rash or petechiae. HEENT: Atraumatic, normocephalic, EOMI, anicteric sclera B; pink conjunctiva; PERRLA, normal oropharynx, moist oral and nasal mucosa. Tympanic membrane , nose , throat clear. Neck: Trachea midline. Supple, full range of motion, no JVD, bruit , hepatojugular reflex , lymphadenopathy or masses, or other lesions Cardiac: Regular rhythm, regular rate no murmurs, rubs, or gallops. Normal S1 and S2, no S3 noticed. PMI is normal. Respiratory: Equal breath sounds bilaterally, no tachypnea; lungs clear to auscultation bilaterally, no wheezing ,rub or rales, or crackles. Chest wall is symmetric and without deformity. No signs of trauma. Chest wall is nontender. No signs of respiratory distress. Resonance is normal upon percussion bilaterally. Gastrointestinal: Abdomen symmetric, non-distended, soft, non-tender, normal bowel sounds x4 quadrant, normoactive, no hepatosplenomegaly , no masses , no bruit, no flank pain bilaterally. No voluntary guarding, rebound, or rigidity. No tenderness to percussion. No pulsatile masses. Equal femoral pulses. No De's sign or McBurney point tenderness. Back; no CVA tenderness bilaterally, no deformities. Neck and back are without deformity as well. No tenderness noted on palpation of the spinous processes. Spinous processes are midline. Cervical, thoracic, and lumbar paraspinal muscles are not tender and are without spasm. : normal external genitalia, without lesions, swelling, masses or tenderness. Musculoskeletal: Extremities, normal range of motion, non-tender, muscle strength 5/5 x 4. Negative Homans signs bilaterally on lower extremity. Distal pulses full symmetrical, no clubbing, cyanosis , edema. Neurological: Speech is clear, alert, and oriented x 4. No motor or sensory deficit, deep tendon reflexes normal, cerebellar intact. Cranial nerves II-XII intact. Psych: Alert and or appropriate, normal affect. Vascular: Good distal pulses, which are equal x4; capillary refill less than 2 seconds. Lymphatic, no lymphadenopathy. General: As above Advance Care Planning Advanced Care plannin - 30 Minutes Additional Plan Assessment End-stage renal disease on hemodialysis Severe hyperkalemia Diabetes mellitus type 2 uncontrolled Bradycardia Gait disorder, unable to ambulate independently AFib controlled ventricular rate Post Maze procedure August 2024 Hypovolemia Multiple episode of pancreatitis Chronic pain syndrome on home opioids Additional comorbidities, GERD, dyslipidemia, history of alcohol abuse sober now, cholecystectomy, history of CHF hypertension Plan Urgent hemodialysis Nephrology doctor on the case Cardiology DrDez On the case Correct electrolytes PT evaluation and treatment Hyperglycemia sliding scale Additional lab work pending Reconciled home medications DVT gastropathy prophylaxis addressed Sepsis Screening Reassessment Date: Dec 26, 2024 Date of Service: Dec 26, 2024 Billing Provider: MARGARITO FIELD MD Common Visit Codes: 97146-PNIBAYX INP/OBS CARE (HIGH) Secondary Visit Codes: 25406-DASRZJBT CARE PLAN 30 MINUTES MARGARITO FIELD MD Dec 26, 2024 15:03
[2024-12-26 15:33] LABS: APTT 31 SECONDS (22-32); INR 1.3 INR
[2024-12-26 15:41] LABS: PHOSPHORUS 6.3 MG/DL (2.3-4.5)
--- NOTE | 2024-12-26 15:49 | CONSULTATION REPORT ---
History of Present Illness Providers to CC ~ Refering MD: margarito valdez [place] History of Present Illness Reason for Consult: Bradycardia; concerns for heart block Mr. Carter is a new patient to our service. He has a history of CKD on HD (follows with Dr. Bobo), Type I DM, and non-obstracting CAD. He was transferred from [facility] due to concern for heart block after presenting there with sudden dizziness, lightheadedness, and inability to stand. On arrival, BP was stable, but HR wa sin the mid 30's. He has chronic atrial fibrillation. He is a poor historian and is unsure of his prior cardiac procedures. He states a "valve was replaced" but is unable to specify which one. I contacted his sister, Laya, who reported that he underwent a procedure at [facility] in [facility] in September 2024. His nurse Josias is obtainig those outside records to clarify the exact valve procedure performed. Initial potassium was 7.3, and he was taking amiodarone and metoprolol. He was suspected for complete heart block at OSH, but rhythm here appears more consistent iwth drug and electrolyte-induced bradycardia. Allergies: Coded Allergies: Penicillins (Verified Allergy, Mild, ITCHING, 12/26/24) Uncoded Allergies: "NARCOTIC NOONISIS" (Allergy, Unknown, 07/10/21) Home Medications Home Medications Active Reported Hydrocodon-Acetaminophn 10-325 tablet (Acetaminophen/Hydrocodone Bitart) 1 Each Tablet 1 Tab PO Q4H Ondansetron Odt (Ondansetron HCl) 8 Mg Tab.rapdis Insulin Lispro Kwikpen U-100 (Insulin Lispro) 100 Unit/1 Ml Insuln.pen SQ Amlodipine Besylate 10 Mg Tablet 1 Tab PO DAILY Atorvastatin Calcium 20 Mg Tablet 1 Tab PO HS Admelog Solostar (Insulin Lispro) 100 Unit/1 Ml Insuln.pen 10-30 Units SQ TID Prilosec (Omeprazole) 40 Mg Capsule 1 Cap PO DAILY Irbesartan 300 Mg Tablet 1 Tab PO DAILY B-Complex Tablet (Vitamin B Complex/Folic Acid) 0.4 Mg Tablet 1 Tab PO DAILY Wixela 500-50 Inhub (Fluticasone Propion/Salmeterol) 1 Each Blst.w.dev Combivent Respimat Inhal [place] (Albuterol/Ipratropium) 4 Gm Aer.w.adap 1 Puff IH QID MAY TAKE ADDITIONAL PUFFS, NTE 6 PUFFS DAILY Past Medical History Medical History Comment DM Type I, ESRD Past Surgical History Surgical History Comment Right BKA, Subha Past Social History Social History Comment does not smoke, or consume alcohol, endorses using cannabis Health Maintenance Health Maintenance Symptomatic Bradycardia HR in mid 30's on arrival Rhythm strips here is more consistent with A-fib with slow ventricular response. Likely due to combination of severe hyperkalemia, and AV shahram blockers (had been on Amiodarone and Metroprolol) Awaiting outside records Plan: Watch and wait, continue telemetry monitoring Hold metoprolol and amiodarone for now correct hyperkalmeia Await medical record from [facility] ([place]) to clarify prior valve procedure and evaluate for conduction system implications CAD, likely non-obstructive known history; no current chest pain or ischemic symptoms Hemodynamically stable Echo pending LDL goa <70, lipid panel pending Permanent A-fib with CVR Hold amiodarone and metoprolol for now ESRD, on HD Severe Hyperkalemia Initial K >7, We will have hemodialysis today. Management per Dr. Bobo and Dr. Hudson Type I DM Management per primary team Thank you for allowing us to participate in this patient's care. Patient seen and examined in emergency room on 12/26/2024. Patient is symptomatic with nausea. Continue to monitor. Consider dopamine if necessary. 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
[2024-12-26] MEDS ORDERED: albumin (human) 25% 100ml IV 100 ML IV PRN (15:55)
[2024-12-26] MEDS: ondansetron/PF 4mg/2ml inj IV PRN (15:57)
--- NOTE | 2024-12-26 15:59 | CONSULTATION REPORT ---
History of Present Illness Providers to CC ~ Reason for Admit\\Admit Dx: Hyperkalemia, bradycardia Refering MD: Naomy Charles MD History of Present Illness Steve Carter is well known to me from the dialysis center, with history of ESRD on HD. He is transferred to us from [facility] for concerns of heart block. He has a history of significant past medical problems He has a tunneled dialysis catheter in his left chest and no peripheral shunt. Patient presented there with a complaint of sudden dizziness, lightheadedness, and could not stand up. He had a prior history of occasional hypotension but was unable to check his blood pressure at home and called paramedics. On arrival he was found to have a normal blood pressure which has remained normal throughout his stay at the transferring facility, however heart rate has been in the 35-55 range. He has had a baseline underlying atrial fibrillation which is chronic for him, interspersed with periods of third-degree heart block. Patient has maintained blood pressure and has been mentating well throughout his stay there and has not required any outside pacing. He is status post Maze procedure at an outside facility in August and we do not have records. Pt is anticoagulated. At the transferring hospital the patient was found to have a creatinine greater than nine, potassium of 7.3 at around 11:30 a.m.. He had received albuterol and Kayexalate prior to contact with this hospital, and subsequently given insulin as well to help with the hyperkalemia. No repeat value ordered. Allergies: Coded Allergies: Penicillins (Verified Allergy, Mild, ITCHING, 12/26/24) Uncoded Allergies: "NARCOTIC NOONISIS" (Allergy, Unknown, 07/10/21) Home Medications Home Medications Active Reported Hydrocodon-Acetaminophn 10-325 tablet (Acetaminophen/Hydrocodone Bitart) 1 Each Tablet 1 Tab PO Q4H Ondansetron Odt (Ondansetron HCl) 8 Mg Tab.rapdis Insulin Lispro Kwikpen U-100 (Insulin Lispro) 100 Unit/1 Ml Insuln.pen SQ Amlodipine Besylate 10 Mg Tablet 1 Tab PO DAILY Atorvastatin Calcium 20 Mg Tablet 1 Tab PO HS Admelog Solostar (Insulin Lispro) 100 Unit/1 Ml Insuln.pen 10-30 Units SQ TID Prilosec (Omeprazole) 40 Mg Capsule 1 Cap PO DAILY Irbesartan 300 Mg Tablet 1 Tab PO DAILY B-Complex Tablet (Vitamin B Complex/Folic Acid) 0.4 Mg Tablet 1 Tab PO DAILY Wixela 500-50 Inhub (Fluticasone Propion/Salmeterol) 1 Each Blst.w.dev Combivent Respimat Inhal [place] (Albuterol/Ipratropium) 4 Gm Aer.w.adap 1 Puff IH QID MAY TAKE ADDITIONAL PUFFS, NTE 6 PUFFS DAILY Past Medical History Medical History Comment Diabetes mellitus type 1 End-stage renal disease on hemodialysis Past Surgical History Surgical History Comment Right BKA Cholecystectomy Past Family History Family History Comment nothing significant Past Social History Social History Comment Family history-no family history of diabetes Social history-does not smoke or drink; uses cannabis Physical Exam Last Vital Signs Recorded: Temperature: 98.4, Source: Oral, Heart Rate: 35, Respiratory Rate: 13, BP: 161/77, Pulse Oximetry: 100, Weight: 132.000 Physical Exam bhupinder CVS: RRRRS:CTA abd: bS+ Ext: nO edema Results Diagram Lab Result Diagram: 12/26/24 1441 Assessment/Plan Problems/Diagnosis: (1) Hyperkalemia Assessment & Plan: urgent HD arranged and has been started. pulse rate is already improving adn the heart block resolving. clearly the bradycardia is related to the hyperkalemia (2) Complete atrioventricular block Assessment & Plan: secondary to hyperkalemia (3) ESRD on dialysis Assessment & Plan: HD emergently being done. JOAQUIN MENON MD Dec 26, 2024 15:59
[2024-12-26] MEDS ORDERED: dextrose 50%-water 50ml dispensing syringe IV PRN ×2 (16:20)
[2024-12-26] MEDS ORDERED: DEXTROSE 15 GM of carb/4 tabs (each vial/BOTTLE has 4 tablets) PO PRN ×2 (16:20)
[2024-12-26] MEDS ORDERED: glucagon, human recombinant 1mg kit SUBCUT PRN (16:20)
[2024-12-26] MEDS: INSULIN LISPRO 100 UNIT/ML INSULN.PEN MULTI-DOSE SQ SCH (17:00)
[2024-12-26] MEDS: heparin 1,000 units/ml 10ml inj IV ONE (17:52)
[2024-12-26] MEDS: heparin 1,000unit/ml 10ml vial 10 ML IV ONE (17:53)
[2024-12-26] MEDS: heparin 1,000 units/ml 10ml inj HE ONE ×2 (17:54)
[2024-12-26] MEDS: K and/or MAG REPLACEMENT MC SCH (20:00)
[2024-12-26] MEDS: docusate sod 100mg capsule PO SCH (20:00)
[2024-12-26 20:38] LABS: MEAN PLATELET VOLUME 7.4 FL (7.4-10.4); RED CELL DISTRIBUTION WIDTH 20.7 % (11.5-14.5)
[2024-12-26] MEDS: heparin, porcine 5000 units/ml vial SQ SCH (21:05)
[2024-12-26] MEDS: insulin glargine (Lantus) pen - multi-dose SQ SCH (21:11)
[2024-12-27] VITALS (23 sets, daily range): BP systolic 108–164; BP diastolic 60–100; PULSE 66–150; RESP 12–22; TEMP 97.6–98.2; O2SAT 69–98
[2024-12-27] MEDS: albuterol 2.5 MG/3 ML nebule ONE (02:37)
[2024-12-27 06:04] LABS: MEAN PLATELET VOLUME 7.3 FL (7.4-10.4); RED CELL DISTRIBUTION WIDTH 20.6 % (11.5-14.5)
[2024-12-27 06:20] LABS: PLATELET ESTIMATE NORMAL
[2024-12-27 06:24] LABS: CREATININE 7.41 MG/DL (0.60-1.10); TOTAL CARBON DIOXIDE 29.0 MMOL/L (24-32); eCRCL 15 ML/MIN; eGFR 8 ML/MIN
--- NOTE | 2024-12-27 07:21 | PROGRESS NOTE ---
Progress Note Dictate Providers to CC ~ Progress Note: Dr. Bobo Initial Evaluation: Steve Carter is well known to me from the dialysis center, with history of ESRD on HD. He is transferred to us from for concerns of heart block. He has a history of significant past medical problems He has a tunneled dialysis catheter in his left chest and no peripheral shunt. Patient presented there with a complaint of sudden dizziness, lightheadedness, and could not stand up. He had a prior history of occasional hypotension but was unable to check his blood pressure at home and called paramedics. On arrival he was found to have a normal blood pressure which has remained normal throughout his stay at the transferring facility, however heart rate has been in the 35-55 range. He has had a baseline underlying atrial fibrillation which is chronic for him, interspersed with periods of third-degree heart block. Patient has maintained blood pressure and has been mentating well throughout his stay there and has not required any outside pacing. He is status post Maze procedure at an outside facility in August and we do not have records. Pt is anticoagulated. At the transferring hospital the patient was found to have a creatinine greater than nine, potassium of 7.3 at around 11:30 a.m.. He had received albuterol and Kayexalate prior to contact with this hospital, and subsequently given insulin as well to help with the hyperkalemia. No repeat value ordered. Antibiotic Ordered?: N/A Subjective Subjective Doing well this morning, potassium still significantly elevated 6.1, plan on HD again today. Objective Vitals Vital Signs Date Time Temp Pulse Resp B/P (MAP) Pulse Ox O2 Delivery O2 Flow Rate FiO2 12/27/24 02:47 66 16 Room Air 0.0 12/27/24 02:41 92 21 12/27/24 02:00 98.2 153/63 (93) Alert RRR w/o murmur, no JVD CTAB, no wheezes +BS, NT No edema Lab Results: 12/27/24 0540 12/27/24 0540 Coagulation Studies Laboratory Tests Test 12/26/24 15:12 Prothrombin Time 13.4 SECONDS (9.0-12.0) H INR International Normalized Ratio 1.3 INR Activated Partial Thromboplast Time 31 SECONDS (22-32) Coagulation Comments Other Results I & O 12/27/24 07:00 Intake Total 1000 ml Output Total 3000 ml Balance -2000 ml Intake Oral 300 ml Hemodialysis 500 ml Other 200 ml Output Hemodialysis 3000 ml Problem\Assessment\Plan Problems/Diagnosis: (1) Hyperkalemia Assessment & Plan: Potassium at presentation over 7, now 6.1 after HD yesterday, plan on additional HD today (2) Complete atrioventricular block Assessment & Plan: Cardiology reviewing his EKG, will await further evaluation, repeat EKG after HD today (3) ESRD on dialysis Assessment & Plan: Repeat HD today, 2K bath, consider Lokelma on non-dialysis days at discharge Sepsis Screening Skin Color: Normal WALL,FARZANA M III DO Dec 27, 2024 07:21
[2024-12-27] MEDS ORDERED: normal saline 1000ml 100 ML IV PRN (07:25)
[2024-12-27] MEDS ORDERED: albumin (human) 25% 100ml IV 100 ML IV PRN (07:25)
[2024-12-27] MEDS: albuterol 2.5 MG/3 ML nebule NEB PRN (10:04)
[2024-12-27] MEDS ORDERED: HYDROmorphone inj. 0.5 MG/0.5 ML DISP.SYRIN IV PRN (10:05)
[2024-12-27] MEDS: PERFLUTREN PROTEIN-A MICROSPHR (Optison) 0.22 MG/ML 3ML VIAL IV ONE (10:30)
[2024-12-27 10:53] LABS: CHOL/HDL RATIO 2.8 (0.00-4.99); LDL CHOLESTEROL 74 MG/DL (50-100)
--- NOTE | 2024-12-27 11:36 | ELECTROCARDIOGRAPH REPORT ---
[facility] Test Date: 2024-12-26 Test Time: 14:08:09 Pat Name: ANDREW ALY Department: EMERGENCY ROOM Room: [place] [id number] A Gender: M Retail Experience Specialist: ALEKSANDRA : 1975 Requested By: MARGARITO FIELD Order Number: [id number] Reading MD: Dr. VALDO Blackwood Measurements Intervals [place] Rate: 35 P: 0 SD: 392 QRS: -58 QRSD: 127 T: 59 QT: 534 QTc: 408 Interpretive Statements narrow complex rhythm, P-wave not seen Biatrial enlargement Nonspecific IVCD with LAD Probable anteroseptal infarct, old Electronically Signed On 12-27-2024 12:57:[address] VALDO Blackwood Please click the below link to view image of tracing.
[2024-12-27] MEDS: heparin 1,000 units/ml 10ml inj HE ONE ×2 (12:01→12:02)
[2024-12-27 17:01] LABS: CREATININE 5.23 MG/DL (0.60-1.10); TOTAL CARBON DIOXIDE 28.8 MMOL/L (24-32); eCRCL 21 ML/MIN; eGFR 12 ML/MIN
--- NOTE | 2024-12-27 17:08 | PROGRESS NOTE ---
Progress Note Cardiology Providers to CC ~ Subjective Subjective Patient seen and examined today in PCU. Patient had hemodialysis yesterday and we will have another one today. He is feeling much better. He is in normal sinus rhythm now. Objective Result Diagram: 12/27/24 0540 12/27/24 1632 Objective General: Normal body habitus, no acute distress, HEENT: Sclerae clear, PERRL, gums without lesions or bleeding, oropharynx clear without erythema or exudate. Neck: Supple without enlargement of the thyroid, or lymphadenopathy, Chest: Normal size and shape, no tenderness, nonlabored breathing, Breath sounds clear to auscultation. Heart: Regular in rate and rhythm, S1 and S2 normal, no S3-S4 or murmurs. Abdomen: Soft, nontender, no organomegaly, bowel sounds present. Extremities: Right BKA Coagulation Studies Laboratory Tests Test 12/26/24 15:12 Prothrombin Time 13.4 SECONDS (9.0-12.0) H INR International Normalized Ratio 1.3 INR Activated Partial Thromboplast Time 31 SECONDS (22-32) Coagulation Comments Problem\Assessment\Plan Additional Plan 1. 49-year-old male with CKD with who came with electrolyte abnormalities including hyperkalemia improved with hemodialysis. His potassium 4.3 today. Management per roadside mechanic. 2. Paroxysmal atrial fibrillation: Patient has history of ablation. AFib has resolved now with correction of electrolyte abnormalities. Patient used to be on amiodarone and metoprolol. His records are requested. May need lower doses of the medications in future. Await medical record from [facility] ([place]) to clarify prior valve procedure and evaluate for conduction system implications 3. CAD, likely non-obstructive known history; no current chest pain or ischemic symptoms Hemodynamically stable Echo pending LDL goa <70, lipid panel pending 4. History of mitral valve replacement: Check echocardiogram. Obtain old records. Counseled on endocarditis prophylaxis 4. Type I DM Management per primary team 5. 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 Medical noncompliance: Patient is not aware of what medications he takes. Does not have a regular follow up. CHASE FERGUSON MD Dec 27, 2024 17:08
--- NOTE | 2024-12-27 18:54 | PROGRESS NOTE ---
Daily Progress Note Providers to CC ~ no new complaint today awaiting to go to hemodialysis today Central Line/PICC still needed: No Smith-Non Protocol Smith Indications Met/Not Met: F/C Indications Not Met Antibiotic Timeout Antibiotic Ordered?: Yes MRSA Education MRSA Education Provided to pt: Yes Subjective As above Objective Vital Signs Date Time Temp Pulse Resp B/P (MAP) Pulse Ox O2 Delivery O2 Flow Rate FiO2 12/27/24 16:15 80 20 Room Air 0.0 21 12/27/24 16:04 95 12/27/24 15:00 97.9 140/82 (101) Vital signs, stable ,afebrile. Pulse Oximetry reflects adequate oxygenation. General: well developed, well nourished. Awake , alert, and oriented x4, resting comfortably in the bed, in no acute distress . Skin: Warm, dry, no pallor, no rash or petechiae. HEENT: Atraumatic, normocephalic, EOMI, anicteric sclera B; pink conjunctiva; PERRLA, normal oropharynx, moist oral and nasal mucosa. Tympanic membrane , nose , throat clear. Neck: Trachea midline. Supple, full range of motion, no JVD, bruit , hepatojugular reflex , lymphadenopathy or masses, or other lesions Cardiac: Regular rhythm, regular rate no murmurs, rubs, or gallops. Normal S1 and S2, no S3 noticed. PMI is normal. Respiratory: Equal breath sounds bilaterally, no tachypnea; lungs clear to auscultation bilaterally, no wheezing ,rub or rales, or crackles. Chest wall is symmetric and without deformity. No signs of trauma. Chest wall is nontender. No signs of respiratory distress. Resonance is normal upon percussion bilaterally. Gastrointestinal: Abdomen symmetric, non-distended, soft, non-tender, normal bowel sounds x4 quadrant, normoactive, no hepatosplenomegaly , no masses , no bruit, no flank pain bilaterally. No voluntary guarding, rebound, or rigidity. No tenderness to percussion. No pulsatile masses. Equal femoral pulses. No De's sign or McBurney point tenderness. Back; no CVA tenderness bilaterally, no deformities. Neck and back are without deformity as well. No tenderness noted on palpation of the spinous processes. Spinous processes are midline. Cervical, thoracic, and lumbar paraspinal muscles are not tender and are without spasm. : normal external genitalia, without lesions, swelling, masses or tenderness. Musculoskeletal: Extremities, normal range of motion, non-tender, muscle strength 5/5 x 4. Negative Homans signs bilaterally on lower extremity. Distal pulses full symmetrical, no clubbing, cyanosis , edema. Neurological: Speech is clear, alert, and oriented x 4. No motor or sensory deficit, deep tendon reflexes normal, cerebellar intact. Cranial nerves II-XII intact. Psych: Alert and or appropriate, normal affect. Vascular: Good distal pulses, which are equal x4; capillary refill less than 2 seconds. Lymphatic, no lymphadenopathy. Result Diagram: 12/27/24 0540 12/27/24 1632 Coagulation Studies Laboratory Tests Test 12/26/24 15:12 Prothrombin Time 13.4 SECONDS (9.0-12.0) H INR International Normalized Ratio 1.3 INR Activated Partial Thromboplast Time 31 SECONDS (22-32) Coagulation Comments Problem\Assessment\Plan Assessment End-stage renal disease on hemodialysis Severe hyperkalemia Diabetes mellitus type 2 uncontrolled Bradycardia Gait disorder, unable to ambulate independently AFib controlled ventricular rate Post Maze procedure August 2024 Hypovolemia Multiple episode of pancreatitis Chronic pain syndrome on home opioids Additional comorbidities, GERD, dyslipidemia, history of alcohol abuse sober now, cholecystectomy, history of CHF hypertension Plan Urgent hemodialysis Nephrology doctor on the case Cardiology On the case Correct electrolytes PT evaluation and treatment Hyperglycemia sliding scale Additional lab work pending Reconciled home medications DVT gastropathy prophylaxis addressed Sepsis Screening Reassessment Date: Dec 27, 2024 Skin Color: Normal Date of Service: Dec 27, 2024 Billing Provider: MARGARITO FIELD MD Common Visit Codes: [id number] INP/OBS CARE(HIGH) MARGARITO FIELD MD Dec 27, 2024 18:54
[2024-12-27] MEDS: metoprolol tartrate 1mg/ml inj IV ONE ×2 (22:05→22:54)
[2024-12-27] MEDS: metoclopramide 5 mg/ml inj IV ONE (22:11)
--- NOTE | 2024-12-27 23:00 | ELECTROCARDIOGRAPH REPORT ---
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 VALDO Blackwood Measurements Intervals [place] Rate: 154 P: 0 NH: 0 QRS: -72 QRSD: 116 T: 68 QT: 331 QTc: 530 Interpretive Statements Atrial flutter LAD, consider left anterior fascicular block Baseline wander in lead(s) V3,V4 Electronically Signed On 12-28-2024 17:17:[address] VALDO Blackwood Please click the below link to view image of tracing.
[2024-12-27] MEDS: diltiazem 5mg/ml 5ml inj. IV ONE ×2 (23:05→23:42)
[2024-12-27] MEDS: insulin glargine (Lantus) pen - multi-dose SQ ONE (23:23)
[2024-12-27] MEDS: diltiazem-NS 100mg/100ml 100 ML IV SCH (23:36)
[2024-12-27] MEDS: diltiazem-NS 100mg/100ml 100 ML IV ONE (23:43)
[2024-12-28] VITALS (29 sets, daily range): BP systolic 91–137; BP diastolic 63–109; PULSE 59–153; RESP 11–21; TEMP 96.9–98.4; O2SAT 94–99
[2024-12-28 06:25] LABS: MEAN PLATELET VOLUME 7.4 FL (7.4-10.4); RED CELL DISTRIBUTION WIDTH 19.8 % (11.5-14.5)
[2024-12-28 06:41] LABS: CHOL/HDL RATIO 3.1 (0.00-4.99); CREATININE 6.93 MG/DL (0.60-1.10); LDL CHOLESTEROL 101 MG/DL (50-100); TOTAL CARBON DIOXIDE 27.8 MMOL/L (24-32); eCRCL 16 ML/MIN; eGFR 8 ML/MIN
[2024-12-28] MEDS: diltiazem-NS 100mg/100ml 100 ML IV SCH (06:45)
[2024-12-28] MEDS ORDERED: normal saline 1000ml 100 ML IV PRN (07:30)
--- NOTE | 2024-12-28 07:37 | PROGRESS NOTE ---
Progress Note Dictate Providers to CC ~ Progress Note: Dr. Bobo Initial Evaluation: Steve Carter is well known to me from the dialysis center, with history of ESRD on HD. He is transferred to us from [facility] for concerns of heart block. He has a history of significant past medical problems He has a tunneled dialysis catheter in his left chest and no peripheral shunt. Patient presented there with a complaint of sudden dizziness, lightheadedness, and could not stand up. He had a prior history of occasional hypotension but was unable to check his blood pressure at home and called paramedics. On arrival he was found to have a normal blood pressure which has remained normal throughout his stay at the transferring facility, however heart rate has been in the 35-55 range. He has had a baseline underlying atrial fibrillation which is chronic for him, interspersed with periods of third-degree heart block. Patient has maintained blood pressure and has been mentating well throughout his stay there and has not required any outside pacing. He is status post Maze procedure at an outside facility in August and we do not have records. Pt is anticoagulated. At the transferring hospital the patient was found to have a creatinine greater than nine, potassium of 7.3 at around 11:30 a.m.. He had received albuterol and Kayexalate prior to contact with this hospital, and subsequently given insulin as well to help with the hyperkalemia. No repeat value ordered. Antibiotic Ordered?: N/A Subjective Subjective Doing well today, still hyperkalemic although mild, scheduled for discharge roday, but now A-Fib with RVR Objective Vitals Vital Signs Date Time Temp Pulse Resp B/P (MAP) Pulse Ox O2 Delivery O2 Flow Rate FiO2 12/28/24 04:15 91/71 (78) 12/28/24 03:45 131 14 12/28/24 02:00 98.4 94 Room Air 12/27/24 20:37 0 21 Alert RRR w/o murmur, no JVD CTAB, no wheezes +BS, NT No edema Lab Results: 12/28/24 0556 12/28/24 0556 Coagulation Studies Laboratory Tests Test 12/26/24 15:12 Prothrombin Time 13.4 SECONDS (9.0-12.0) H INR International Normalized Ratio 1.3 INR Activated Partial Thromboplast Time 31 SECONDS (22-32) Coagulation Comments Other Results I & O 12/28/24 07:00 Intake Total 1440 ml Output Total 2000 ml Balance -560 ml Intake Oral 700 ml Hemodialysis 500 ml Other 240 ml Output Hemodialysis 2000 ml # Voids 1 Problem\Assessment\Plan Problems/Diagnosis: (1) Hyperkalemia Assessment & Plan: urgent HD arranged and has been started. pulse rate is already improving adn the heart block resolving. clearly the bradycardia is related to the hyperkalemia Lokelma at discharge 10 grams on non-dialysis days (2) Complete atrioventricular block Assessment & Plan: Secondary to hyperkalemia, now A-Fib with RVR, Cardizem infusion now (3) ESRD on dialysis Assessment & Plan: HD emergently at admission, today is his usual day, HD, Hd 2K bath, follow up on his usual dialysis schedule after discharge Sepsis Screening Skin Color: Normal WALL,FARZANA Ross III DO Dec 28, 2024 07:37
[2024-12-28] MEDS: SODIUM ZIRCONIUM CYCLOSILICATE 10 GM POWD.PACK PO SCH (08:00)
[2024-12-28 09:12] LABS: HBSAG SCREEN Negative (Negative)
[2024-12-28] MEDS: amiodarone/D5 360MG/200ML BAG 200 ML IV SCH (10:15)
--- NOTE | 2024-12-28 10:37 | ELECTROCARDIOGRAPH REPORT ---
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 VALDO Ferguson Measurements Intervals [place] Rate: 145 P: 0 NM: 0 QRS: -78 QRSD: 118 T: 54 QT: 342 QTc: 532 Interpretive Statements Atrial flutter with predominant 2:1 AV block LAD, consider left anterior fascicular block Electronically Signed On 12-28-2024 17:22:[address] VALDO Ferguson Please click the below link to view image of tracing.
[2024-12-28] MEDS: amiodarone 150mg/dext, iso-os 100 ML IV ONE (11:23)
--- NOTE | 2024-12-28 14:32 | PROGRESS NOTE- Residence ---
Progress Note - Resident Providers to CC Resident Creating Document: BARNEY OROSCO RES ~ Antibiotic Timeout Antibiotic Ordered?: No Subjective Patient was seen and examined at bedside while he was undergoing dialysis. He had one HD yesterday in one scheduled for tomorrow. He is in paroxysmal atrial fibrillation. On amiodarone and Cardizem drip. Eliquis started. Otherwise he is doing well. Objective Vital Signs Date Time Temp Pulse Resp B/P (MAP) Pulse Ox O2 Delivery O2 Flow Rate FiO2 12/28/24 13:50 131 18 133/70 (91) 96 Room Air 12/28/24 13:43 0 21 12/28/24 13:20 98.2 General: Awake and Alert, no acute distress. Resp: Unlabored. Lungs clear to auscultation bilaterally. Heart: Irregularly irregular Abdomen: Soft and non tender no organomegaly Extremities: Right BKA. Left foot stasis dermatitis Skin: 1+ Result Diagram: 12/28/24 0556 12/28/24 0556 Coagulation Studies Laboratory Tests Test 12/26/24 15:12 Prothrombin Time 13.4 SECONDS (9.0-12.0) H INR International Normalized Ratio 1.3 INR Activated Partial Thromboplast Time 31 SECONDS (22-32) Coagulation Comments Advance Care Planning Advanced Care plannin - 30 Minutes Assessment Assessment This is a 49-year-old male with PMH significant for ESRD on hemodialysis MWF, hypertension, IDDM, and atrial fibrillation status post left atrial appendage ligation and Maze procedure in August 2024. 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 He was transferred from [facility] due to concern for heart block after presenting there with sudden dizziness, lightheadedness, and inability to stand. On arrival, BP was stable, but HR wa in the mid 30's. He has chronic atrial fibrillation. Plan Plan Paroxysmal atrial fibrillation with RVR; HR in 140s Currently on amiodarone and Cardizem. BP stable Eliquis 5 mg twice daily started Continue telemetry Symptomatic Bradycardia, resolved HR in mid 30's on arrival Rhythm strips here is more consistent with A-fib with slow ventricular response. Likely due to combination of severe hyperkalemia, and AV shahram blockers (had been on Amiodarone and Metroprolol) Awaiting outside records Plan: Watch and wait, continue telemetry monitoring Hold metoprolol and amiodarone for now correct hyperkalmeia Nonobstructive CAD known history; no current chest pain or ischemic symptoms Hemodynamically stable Echo pending LDL goa <70, lipid panel pending ESRD, on HD (MWF) Severe Hyperkalemia Initial K >7, now 5.3 Scheduled for three consecutive HD; undergone one yesterday, today and tomorrow. Management per Dr. Bobo and Dr. 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, complicated course requiring MVR Currently no signs of active infection; afebrile, no leukocytosis, no embolic phenomena, no murmur concerning for prosthetic dysfunction Continue routine post valve surveillance Endocarditis prophylaxis recommended before dental procedure Nonadherence to medical therapy Patient has history of inconsistent adherence to medications and follow up appointments, contributing to recurrent clinical decompensation Reinforced importance of medication adherence and follow up Case management on broad Type I DM Hypertension Hyperlipidemia Management per primary team Patient was seen discussed with . Barney Orosco Internal Medicine Resident, PGY-3 (Cardiology) Date of Service: Dec 28, 2024 Billing Provider: CHASE FERGUSON MD, SHAMS, RES Dec 28, 2024 14:32
[2024-12-28] MEDS: heparin 1,000 units/ml 10ml inj HE ONE ×2 (14:56)
--- NOTE | 2024-12-28 14:58 | PROGRESS NOTE ---
Daily Progress Note Providers to CC ~ feels better today no new complaint resting comfortably in the bed Central Line/PICC still needed: No Smith-Non Protocol Smith Indications Met/Not Met: F/C Indications Not Met Antibiotic Timeout Antibiotic Ordered?: Yes MRSA Education MRSA Education Provided to pt: Yes Subjective As above Objective Vital Signs Date Time Temp Pulse Resp B/P (MAP) Pulse Ox O2 Delivery O2 Flow Rate FiO2 12/28/24 14:20 138 16 111/68 (82) 98 Room Air 12/28/24 13:43 0 21 12/28/24 13:20 98.2 Vital signs, stable ,afebrile. Tachycardic, Pulse Oximetry reflects adequate oxygenation. General: well developed, well nourished. Awake , alert, and oriented x4, resting comfortably in the bed, in no acute distress . Skin: Warm, dry, no pallor, no rash or petechiae. HEENT: Atraumatic, normocephalic, EOMI, anicteric sclera B; pink conjunctiva; PERRLA, normal oropharynx, moist oral and nasal mucosa. Tympanic membrane , nose , throat clear. Neck: Trachea midline. Supple, full range of motion, no JVD, bruit , hepatojugular reflex , lymphadenopathy or masses, or other lesions Cardiac: Regular rhythm, regular rate no murmurs, rubs, or gallops. Normal S1 and S2, no S3 noticed. PMI is normal. Respiratory: Equal breath sounds bilaterally, no tachypnea; lungs clear to auscultation bilaterally, no wheezing ,rub or rales, or crackles. Chest wall is symmetric and without deformity. No signs of trauma. Chest wall is nontender. No signs of respiratory distress. Resonance is normal upon percussion bilaterally. Gastrointestinal: Abdomen symmetric, non-distended, soft, non-tender, normal bowel sounds x4 quadrant, normoactive, no hepatosplenomegaly , no masses , no bruit, no flank pain bilaterally. No voluntary guarding, rebound, or rigidity. No tenderness to percussion. No pulsatile masses. Equal femoral pulses. No De's sign or McBurney point tenderness. Back; no CVA tenderness bilaterally, no deformities. Neck and back are without deformity as well. No tenderness noted on palpation of the spinous processes. Spinous processes are midline. Cervical, thoracic, and lumbar paraspinal muscles are not tender and are without spasm. : normal external genitalia, without lesions, swelling, masses or tenderness. Musculoskeletal: Extremities, normal range of motion, non-tender, muscle strength 5/5 x 4. Negative Homans signs bilaterally on lower extremity. Distal pulses full symmetrical, no clubbing, cyanosis , edema. Neurological: Speech is clear, alert, and oriented x 4. No motor or sensory deficit, deep tendon reflexes normal, cerebellar intact. Cranial nerves II-XII intact. Psych: Alert and or appropriate, normal affect. Vascular: Good distal pulses, which are equal x4; capillary refill less than 2 seconds. Lymphatic, no lymphadenopathy. Result Diagram: 12/28/24 0556 12/28/24 0556 Coagulation Studies Laboratory Tests Test 12/26/24 15:12 Prothrombin Time 13.4 SECONDS (9.0-12.0) H INR International Normalized Ratio 1.3 INR Activated Partial Thromboplast Time 31 SECONDS (22-32) Coagulation Comments Problem\Assessment\Plan Assessment End-stage renal disease on hemodialysis Severe hyperkalemia Diabetes mellitus type 2 uncontrolled Bradycardia Gait disorder, unable to ambulate independently AFib controlled ventricular rate Post Maze procedure August 2024 Hypovolemia Multiple episode of pancreatitis Chronic pain syndrome on home opioids Additional comorbidities, GERD, dyslipidemia, history of alcohol abuse sober now, cholecystectomy, history of CHF hypertension Plan Urgent hemodialysis Nephrology doctor on the case Cardiology On the case Correct electrolytes PT evaluation and treatment Hyperglycemia sliding scale Additional lab work pending Reconciled home medications DVT gastropathy prophylaxis addressed Sepsis Screening Skin Color: Normal Date of Service: Dec 28, 2024 Billing Provider: MARGARITO FIELD MD Common Visit Codes: [id number] INP/OBS CARE(HIGH) MARGARITO FIELD MD Dec 28, 2024 14:58
--- NOTE | 2024-12-28 17:34 | CARDIOLOGY REPORT ---
APPROVED REPORT EXAM: Comprehensive 2D, Doppler, and color-flow Echocardiogram. Patient Location: 3022 [address] Blood Pressure: 140/82 mmHg Heart Rate: 81 bpm Rhythm: SINUS Indications VALVULAR HEART DISEASE ELEVATED PROBNP (99766) 3rd DEGREE HEART BLOCK / ATRIAL FIBRILLATION RENAL DISEASE S/P DIALYSIS TREATMENT Garage Manager: Pedrito Blackwood MD (consult) Previous echo: 10/14/18 [facility] (EF 60-65%, trace MR, trace TR) 2D Dimensions IVSd 1.1 (0.7-1.1cm) LVDd 5.4 cm PWd 1.0 (0.7-1.1cm) IVSs 1.6 (0.8-1.2cm) LVDs 3.6 (2.5-4.0cm) PWs 1.8 (0.8-1.2cm) LVOT Diameter 2.22 (1.8-2.4cm) LVEF(%) 61.3 (>50%) FS (%) 33.2 % SV 87.8 ml CO 7.0 L/min M-Mode Dimensions Left Atrium(MM) 4.13 (2.5-4.0cm) Aortic Root 3.91 (2.2-3.7cm) Aortic Cusp Exc 1.65 (1.5-2.0cm) Aortic Valve AoV Peak Giovanni. 195.6 cm/s AoV VTI 29.5 cm AO Peak GR. 15.3 mmHg AO Mean GR. 8 mmHg LVOT VTI 16.77 cm LVOT Peak Giovanni. 90.7 cm/s NORA(VTI)/BSA 2.21 cm2/m2 NORA (VTI) 2.21 cm2 AV DI 0.57 % Mitral Valve MV Peak Gr. 13 mmHg MV Mean Gr. 8 mmHg MV VMax 182.1 cm/s MV VMean 136.8 cm/s MVA VTI 1.42 cm2 MV VTI 46.0 cm LEFT VENTRICLE Normal LV size and wall thickness. Overall systolic function is normal. Overall LVEF is 60-65%. RIGHT VENTRICLE RV appears normal in size and function. ATRIA Left atrium is mildly dilated. AORTIC VALVE Trileaflet AV appears mildly sclerotic without stenosis or insufficiency. MITRAL VALVE Bioprosthetic MVR appears well seated. Trace to mild central regurgitation vs. perivalvular leak. Peak / mean gradients of 13 / 8 mmHG. Peak velocity is measured at 1.82 m/sec. TRICUSPID VALVE TV appears grossly normal with trace regurgitation. PULMONIC VALVE Normal PV without stenosis, physiologic insufficiency. GREAT VESSELS Aortic root is dilated. Ascending aorta is not well visualized. PERICARDIUM Normal pericardium. No effusion. Other Information Study Quality: Adequate, but difficult due to body habitus. Conclusion Overall LVEF is 60-65%. Normal LV size and wall thickness. Overall systolic function is normal. RV appears normal in size and function. Trileaflet AV appears mildly sclerotic without stenosis or insufficiency. Bioprosthetic MVR appears well seated. Trace to mild central regurgitation vs. perivalvular leak. Peak / mean gradients of 13 / 8 mmHG. Peak velocity is measured at 1.82 m/sec. TV appears grossly normal with trace regurgitation. Normal PV without stenosis, physiologic insufficiency. Normal pericardium. No effusion.
[2024-12-28] MEDS: Nepro carb steady vanilla 8oz. PO SCH (17:55)
--- NOTE | 2024-12-28 19:48 | RADIOLOGY REPORT ---
CHEST RADIOGRAPH Indication: volume overload/pulmonary congestion Technique: Single frontal view of the chest was obtained. Comparison: DI CHEST,SINGLE VIEW on DOS: 01/04/23 Findings: Median sternotomy. Left central venous catheter. No focal consolidation. No significant pleural effusion. No pneumothorax. Stable cardiomediastinal silhouette. IMPRESSION: No acute process in the chest.
[2024-12-28] MEDS: ipratropium/albuterol 3ml nebule NEB PRN (20:46)
[2024-12-29] VITALS (16 sets, daily range): BP systolic 99–150; BP diastolic 50–89; PULSE 71–135; RESP 9–20; TEMP 97.8–98; O2SAT 95–100
[2024-12-29] MEDS: amiodarone/D5 360MG/200ML BAG 200 ML IV SCH (02:36)
[2024-12-29 06:53] LABS: MEAN PLATELET VOLUME 7.7 FL (7.4-10.4); RED CELL DISTRIBUTION WIDTH 20.1 % (11.5-14.5)
[2024-12-29] MEDS ORDERED: normal saline 1000ml 100 ML IV PRN (07:30)
--- NOTE | 2024-12-29 07:31 | PROGRESS NOTE ---
Progress Note Dictate Providers to CC ~ Progress Note: Dr. Bobo Initial Evaluation: Steve Carter is well known to me from the dialysis center, with history of ESRD on HD. He is transferred to us from [facility] for concerns of heart block. He has a history of significant past medical problems He has a tunneled dialysis catheter in his left chest and no peripheral shunt. Patient presented there with a complaint of sudden dizziness, lightheadedness, and could not stand up. He had a prior history of occasional hypotension but was unable to check his blood pressure at home and called paramedics. On arrival he was found to have a normal blood pressure which has remained normal throughout his stay at the transferring facility, however heart rate has been in the 35-55 range. He has had a baseline underlying atrial fibrillation which is chronic for him, interspersed with periods of third-degree heart block. Patient has maintained blood pressure and has been mentating well throughout his stay there and has not required any outside pacing. He is status post Maze procedure at an outside facility in August and we do not have records. Pt is anticoagulated. At the transferring hospital the patient was found to have a creatinine greater than nine, potassium of 7.3 at around 11:30 a.m.. He had received albuterol and Kayexalate prior to contact with this hospital, and subsequently given insulin as well to help with the hyperkalemia. No repeat value ordered. Antibiotic Ordered?: N/A Subjective Subjective Improving, still elevated potassium Objective Vitals Vital Signs Date Time Temp Pulse Resp B/P (MAP) Pulse Ox O2 Delivery O2 Flow Rate FiO2 12/29/24 08:00 97.8 71 15 118/70 (86) 97 Room Air 12/29/24 08:00 0.0 21 Alert RRR w/o murmur, no JVD CTAB, no wheezes +BS, NT No edema Lab Results: 12/29/24 0621 12/29/24 1009 Coagulation Studies Laboratory Tests Test 12/26/24 15:12 Prothrombin Time 13.4 SECONDS (9.0-12.0) H INR International Normalized Ratio 1.3 INR Activated Partial Thromboplast Time 31 SECONDS (22-32) Coagulation Comments Other Results I & O 12/29/24 07:00 Intake Total 1866.5 ml Output Total 2000 ml Balance -133.5 ml Intake Oral 800 ml IV Total 216.5 ml Hemodialysis 500 ml Other 350 ml Output Hemodialysis 1000 ml Other 1000 ml # Voids 1 Problem\Assessment\Plan Problems/Diagnosis: (1) Hyperkalemia Assessment & Plan: urgent HD arranged and has been started. pulse rate is already improving adn the heart block resolving. clearly the bradycardia is related to the hyperkalemia Lokelma at discharge 10 grams on non-dialysis days (2) Complete atrioventricular block Assessment & Plan: Secondary to hyperkalemia, now A-Fib with RVR, Cardizem infusion now (3) ESRD on dialysis Assessment & Plan: HD emergently at admission, today is his usual day, HD, HD 2K bath, follow up on his usual dialysis schedule after discharge Sepsis Screening Skin Color: Normal WALL,FARZANA M III DO Dec 29, 2024 07:31
--- NOTE | 2024-12-29 09:33 | PROGRESS NOTE- Residence ---
Progress Note - Resident Providers to CC Resident Creating Document: BARNEY OROSCO RES ~ Antibiotic Timeout Antibiotic Ordered?: No Subjective Patient was seen and examined at bedside. He is scheduled for HD today. He is converted to sinus rhythm around 2:45 a.m. t. Cardizem and amiodarone discontinued. Vitals stable. No issues or concerns reported. Objective Vital Signs Date Time Temp Pulse Resp B/P (MAP) Pulse Ox O2 Delivery O2 Flow Rate FiO2 12/29/24 06:00 69 12/29/24 05:00 14 105/50 (68) 12/28/24 22:00 97.9 99 Room Air 12/28/24 20:54 0.0 12/28/24 20:49 21 General: Awake and Alert, no acute distress. Resp: Unlabored. Lungs clear to auscultation bilaterally. Heart: Regular sinus rhythm Abdomen: Soft and non tender no organomegaly Extremities: Right BKA. Left foot stasis dermatitis Result Diagram: 12/29/24 0621 12/28/24 0556 Coagulation Studies Laboratory Tests Test 12/26/24 15:12 Prothrombin Time 13.4 SECONDS (9.0-12.0) H INR International Normalized Ratio 1.3 INR Activated Partial Thromboplast Time 31 SECONDS (22-32) Coagulation Comments Advance Care Planning Advanced Care plannin - 30 Minutes Assessment Assessment This is a 49-year-old male with PMH significant for ESRD on hemodialysis MWF, hypertension, IDDM, and atrial fibrillation status post left atrial appendage ligation and Maze procedure in August 2024. 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 He was transferred from [facility] due to concern for heart block after presenting there with sudden dizziness, lightheadedness, and inability to stand. On arrival, BP was stable, but HR wa in the mid 30's. He has chronic atrial fibrillation. Plan Plan Paroxysmal atrial fibrillation with RVR; HR in 140s Converted to sinus rhythm last night. Amiodarone and Cardizem discontinued. Patient says he had an ablation by an hat designer? In [facility]. Records requested nothing has come. Eliquis 5 mg twice daily started patient is on p.o. amiodarone. Continue telemetry Symptomatic Bradycardia, resolved No recurrence of bradycardia after treating his hyperkalemia and stopping beta nuria Rhythm strips here is more consistent with A-fib with slow ventricular response. Likely due to combination of severe hyperkalemia, and AV shahram blockers (had been on Amiodarone and Metroprolol) Awaiting outside records Nonobstructive CAD known history; no current chest pain or ischemic symptoms Hemodynamically stable Echo on 12/27 shows EF 60-65% LDL goa <55. Current LDL 101, above the target goal Continue atorvastatin 40 mg p.o. daily ESRD, on HD (MWF) Severe Hyperkalemia Initial K >7, now 5.3 Scheduled for three consecutive HD; undergone one yesterday, today and tomorrow. Management per Dr. Bobo and Dr. 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, complicated course requiring MVR Currently no signs of active infection; afebrile, no leukocytosis, no embolic phenomena, no murmur concerning for prosthetic dysfunction Continue routine post valve surveillance Endocarditis prophylaxis recommended before dental procedure Nonadherence to medical therapy Patient has history of inconsistent adherence to medications and follow up appointments, contributing to recurrent clinical decompensation Reinforced importance of medication adherence and follow up Case management on broad Type I DM Hypertension Hyperlipidemia Management per primary team Patient was seen discussed with . Barney Orosco Internal Medicine Resident, PGY-3 (Cardiology) Patient seen and examined by Dr. Estefani ALDRIDGE. The importance of regular follow up with his PMD and primary rn postpartum was emphasized to the patient. Date of Service: Dec 29, 2024 Billing Provider: CHASE FERGUSON MD, SHAMS, RES Dec 29, 2024 09:33 CHASE FERGUSON MD Dec 29, 2024 17:22
[2024-12-29 10:37] LABS: CREATININE 6.76 MG/DL (0.60-1.10); TOTAL CARBON DIOXIDE 26.7 MMOL/L (24-32); eCRCL 16 ML/MIN; eGFR 9 ML/MIN
[2024-12-29] MEDS: heparin 1,000 units/ml 10ml inj HE ONE ×2 (16:20→16:21)
--- NOTE | 2024-12-29 19:20 | PROGRESS NOTE ---
Daily Progress Note Providers to CC ~ Antibiotic Timeout Antibiotic Ordered?: No Subjective The patient is wondering when he was going to be able to be discharged he was not AFib RVR last evening and was on an amiodarone and Cardizem drip which has since has been discontinued the patient currently is on p.o. amiodarone he received dialysis today Objective Vital Signs Date Time Temp Pulse Resp B/P (MAP) Pulse Ox O2 Delivery O2 Flow Rate FiO2 12/29/24 16:45 97.8 99 18 109/75 (86) 100 Room Air 12/29/24 14:51 0.0 12/29/24 14:45 21 Result Diagram: 12/29/24 0621 12/29/24 1009 Gen. No acute distress alert and oriented 4 Lungs clear to ascultation bilaterally, no wheezes rales or rhonchi appreciated Heart normal sinus rhythm no murmurs rubs or clicks noted Abdomen soft nontender bowel sounds are normoactive Lower extremities no clubbing cyanosis, nor edema appreciated left, right BKA Coagulation Studies Laboratory Tests Test 12/26/24 15:12 Prothrombin Time 13.4 SECONDS (9.0-12.0) H INR International Normalized Ratio 1.3 INR Activated Partial Thromboplast Time 31 SECONDS (22-32) Coagulation Comments Problem\Assessment\Plan Assessment End-stage renal disease on hemodialysis Severe hyperkalemia Diabetes mellitus type 2 uncontrolled Bradycardia Gait disorder, unable to ambulate independently AFib controlled ventricular rate Post Maze procedure August 2024 Hypovolemia Multiple episode of pancreatitis Chronic pain syndrome on home opioids Additional comorbidities, GERD, dyslipidemia, history of alcohol abuse sober now, cholecystectomy, history of CHF hypertension Plan Urgent hemodialysis Nephrology doctor on the case Cardiology Dr. Blackwood in his following Correct electrolytes PT evaluation and treatment Hyperglycemia sliding scale Additional lab work pending Reconciled home medications DVT gastropathy prophylaxis addressed 12/29/2024 the patient was not AFib RVR last evening and was on amiodarone and diltiazem drip which has been discontinued currently on p.o. amiodarone. The patient received hemodialysis today, he has a mildly elevated serum potassium of 5.3 yesterday morning which has since resolved. Physical therapy is ordered- possible discharge tomorrow Sepsis Screening Skin Color: Normal Date of Service: Dec 29, 2024 Billing Provider: BRITTANY VERDIN DO Common Visit Codes: [id number] INP/OBS CARE(HIGH) BRITTANY VERDIN DO Dec 29, 2024 19:20
[2024-12-29] MEDS: SODIUM ZIRCONIUM CYCLOSILICATE 10 GM POWD.PACK PO SCH (20:54)
[2024-12-30 04:59] VITALS: PULSE 75; RESP 15
[2024-12-30 06:00] VITALS: BP 141/93; PULSE 89; RESP 18; TEMP 98.4; O2SAT 99
[2024-12-30 06:35] LABS: MEAN PLATELET VOLUME 7.3 FL (7.4-10.4); RED CELL DISTRIBUTION WIDTH 20.0 % (11.5-14.5)
[2024-12-30 06:56] LABS: CREATININE 6.57 MG/DL (0.60-1.10); TOTAL CARBON DIOXIDE 29.6 MMOL/L (24-32); eCRCL 17 ML/MIN; eGFR 9 ML/MIN
--- NOTE | 2024-12-30 07:04 | PROGRESS NOTE ---
Progress Note Dictate Providers to CC ~ Progress Note: alon Bobo Initial Evaluation: Steve Carter is well known to me from the dialysis center, with history of ESRD on HD. He is transferred to us from [facility] for concerns of heart block. He has a history of significant past medical problems He has a tunneled dialysis catheter in his left chest and no peripheral shunt. Patient presented there with a complaint of sudden dizziness, lightheadedness, and could not stand up. He had a prior history of occasional hypotension but was unable to check his blood pressure at home and called paramedics. On arrival he was found to have a normal blood pressure which has remained normal throughout his stay at the transferring facility, however heart rate has been in the 35-55 range. He has had a baseline underlying atrial fibrillation which is chronic for him, interspersed with periods of third-degree heart block. Patient has maintained blood pressure and has been mentating well throughout his stay there and has not required any outside pacing. He is status post Maze procedure at an outside facility in August and we do not have records. Pt is anticoagulated. At the transferring hospital the patient was found to have a creatinine greater than nine, potassium of 7.3 at around 11:30 a.m.. He had received albuterol and Kayexalate prior to contact with this hospital, and subsequently given insulin as well to help with the hyperkalemia. No repeat value ordered. Antibiotic Ordered?: N/A Objective Vitals Vital Signs Date Time Temp Pulse Resp B/P (MAP) Pulse Ox O2 Delivery O2 Flow Rate FiO2 12/30/24 06:00 98.4 89 18 141/93 (109) 99 Room Air 12/29/24 20:00 0.0 21 Aleert RRR w/o murmur CTAB +BS, NT No edema Lab Results: 12/30/24 0609 12/30/24 0609 Coagulation Studies Laboratory Tests Test 12/26/24 15:12 Prothrombin Time 13.4 SECONDS (9.0-12.0) H INR International Normalized Ratio 1.3 INR Activated Partial Thromboplast Time 31 SECONDS (22-32) Coagulation Comments Other Results I & O 12/30/24 07:00 Intake Total 1100 ml Output Total 4000 ml Balance -2900 ml Intake Oral 600 ml Hemodialysis 500 ml Output Hemodialysis 2000 ml Other 2000 ml Problem\Assessment\Plan Problems/Diagnosis: (1) Hyperkalemia Assessment & Plan: Urgent HD at admission and daily for electrolyte management, pulse rate and heart block resolving, developed A-Fib with RVR, treated with Diltiazem and Amiodorone, clearly the arrhythmias are related to the hyperkalemia Lokelma at discharge 10 grams BID on non-dialysis days (2) Complete atrioventricular block Assessment & Plan: Secondary to hyperkalemia, A-Fib with RVR, Cardizem and Amiodorone off for second day (3) ESRD on dialysis Assessment & Plan: HD emergently at admission, follow-up with dialysis tomorrow Sepsis Screening Skin Color: Normal WALL,FARZANA M III DO Dec 30, 2024 07:04
[2024-12-30 08:00] VITALS: RESP 18; O2SAT 99
[2024-12-30] MEDS ORDERED: AMIO200T76 PO (08:57)
[2024-12-30] MEDS ORDERED: APIX5TAB3 PO (08:57)
--- NOTE | 2024-12-30 09:30 | PROGRESS NOTE- Residence ---
Progress Note - Resident Providers to CC Resident Creating Document: BARNEY OROSCO RES ~ Antibiotic Timeout Antibiotic Ordered?: No Subjective Patient was seen and examined at bedside. He is in sinus rhythm. No issues or concerns reported. Objective Vital Signs Date Time Temp Pulse Resp B/P (MAP) Pulse Ox O2 Delivery O2 Flow Rate FiO2 12/30/24 08:00 18 99 Room Air 0.0 21 12/30/24 06:00 98.4 89 141/93 (109) General: Awake and Alert, no acute distress. Resp: Unlabored. Lungs clear to auscultation bilaterally. Heart: Regular sinus rhythm Abdomen: Soft and non tender no organomegaly Extremities: Right BKA. Left foot stasis dermatitis Result Diagram: 12/30/2460812/30/24 06 Coagulation Studies Laboratory Tests Test 12/26/24 15:12 Prothrombin Time 13.4 SECONDS (9.0-12.0) H INR International Normalized Ratio 1.3 INR Activated Partial Thromboplast Time 31 SECONDS (22-32) Coagulation Comments Advance Care Planning Advanced Care plannin - 30 Minutes Assessment Assessment This is a 49-year-old male with PMH significant for ESRD on hemodialysis MWF, hypertension, IDDM, and atrial fibrillation status post left atrial appendage ligation and Maze procedure in August 2024. 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 He was transferred from [facility] due to concern for heart block after presenting there with sudden dizziness, lightheadedness, and inability to stand. On arrival, BP was stable, but HR wa in the mid 30's. He has chronic atrial fibrillation. Plan Plan Paroxysmal atrial fibrillation with RVR; HR in 140s; Now in sinus rhythm Has remained in sinus rhythm. Amiodarone and Cardizem discontinued. Patient says he had an ablation by an drafter electromechanical? In [facility]. Records requested nothing has come. Eliquis 5 mg twice daily started patient is on p.o. amiodarone. Continue telemetry Symptomatic Bradycardia, resolved No recurrence of bradycardia after treating his hyperkalemia and stopping beta nuria Rhythm strips here is more consistent with A-fib with slow ventricular response. Likely due to combination of severe hyperkalemia, and AV shahram blockers (had been on Amiodarone and Metroprolol) Awaiting outside records Nonobstructive CAD known history; no current chest pain or ischemic symptoms Hemodynamically stable Echo on 12/27 shows EF 60-65% LDL goa <55. Current LDL 101, above the target goal Continue atorvastatin 40 mg p.o. daily ESRD, on HD (MWF) Severe Hyperkalemia Initial K >7, now 5.3 Scheduled for three consecutive HD; undergone one yesterday, today and tomorrow. Management per Dr. Bobo and Dr. 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, complicated course requiring MVR Currently no signs of active infection; afebrile, no leukocytosis, no embolic phenomena, no murmur concerning for prosthetic dysfunction Continue routine post valve surveillance Endocarditis prophylaxis recommended before dental procedure Nonadherence to medical therapy Patient has history of inconsistent adherence to medications and follow up appointments, contributing to recurrent clinical decompensation Reinforced importance of medication adherence and follow up Case management on broad Type I DM Hypertension Hyperlipidemia Management per primary team Patient was seen discussed with . Disposition: Metoprolol 25 mg po daily. Reinforced importance of medication adherence and follow up with PCP and his manual winder. Barney Orosco Internal Medicine Resident, PGY-3 (Cardiology) Patient seen and examined by Dr. Estefani ALDRIDGE before discharge. The importance of taking his medications regularly, being compliant with dialysis and keeping electrolytes within normal limits was emphasized to the patient. He also needs to Follow up with his primary manual winder regarding his paroxysmal atrial fibrillation. He expressed understanding. Date of Service: Dec 30, 2024 Billing Provider: CHASE FERGUSON MD, SHAMS, SUJIT Dec 30, 2024 09:30 CHASE FERGUSON MD Dec 30, 2024 16:56
[2024-12-30 10:24] VITALS: BP 132/83; PULSE 78; RESP 13; TEMP 98.4; O2SAT 100
--- NOTE | 2024-12-30 19:25 | DISCHARGE SUMMARY ---
Discharge Summary Providers to CC ~ Discharge Summary Admission Diagnosis: ESRD HD Bradycardia Hospital Course DATE OF ADMISSION: 12/26/2024 DATE OF DISCHARGE: 12/30/2024 Discharge Diagnosis\\Comment: Complete heart block with bradycardia, AFib with RVR, end-stage renal disease on dialysis, severe hyperkalemia, type 2 diabetes mellitus uncontrolled Operations\\Procedures: [facility] dialysis Consultants: Dr. Kings phelps joint supervisor Dr Blackwood energy rater Complications: none Condition on DC: Stable New Medications: Amiodarone Hcl (Cordarone) 200 Mg Tablet 200 MG PO BID, #60 TAB Decrease to daily dosing in 2 weeks Apixaban (Eliquis) 5 Mg Tablet 5 MG PO BID, #60 TAB Continued Medications: Amlodipine Besylate (Amlodipine Besylate) 10 Mg Tablet 1 TAB PO DAILY Atorvastatin Calcium (Atorvastatin Calcium) 20 Mg Tablet 1 TAB PO HS Fluticasone Propion/Salmeterol (Wixela 500-50 Inhub) 1 Each Blst.w.dev Hydrocodone Bit/Acetaminophen (Hydrocodon-Acetaminophn 10-325 tablet) 1 Each Tablet 1 TAB PO Q4H for pain Insulin Lispro (Admelog Solostar) 100 Unit/1 Ml Insuln.pen 10-30 UNITS SQ TID Insulin Lispro (Insulin Lispro Kwikpen U-100) 100 Unit/1 Ml Insuln.pen SQ Ipratropium/Albuterol Sulfate (Combivent Respimat Inhal [place]) 4 Gm Aer.w.adap 1 PUFF IH QID MAY TAKE ADDITIONAL PUFFS, NTE 6 PUFFS DAILY Irbesartan (Irbesartan) 300 Mg Tablet 1 TAB PO DAILY Omeprazole (Prilosec) 40 Mg Capsule 1 CAP PO DAILY Ondansetron 8mg ODT (Ondansetron Odt) 8 Mg Tab.rapdis Vitamin B Complex/Folic Acid (B-Complex Tablet) 0.4 Mg Tablet 1 TAB PO DAILY Discharge Summary: The patient is admitted by Dr. Esteban Scales with the following HPI:"This is a 49 years old white male with history of multiple medical problems including hypertension, multiple episode of pancreatitis, secondary to alcohol abuse, in the past, atrial fibrillation, status post Maze procedure August 2024, chronic pain syndrome on home opioids, diabetes mellitus type 2, GERD, hypotension, dyslipidemia, COPD, CHF status post cholecystectomy, presented today to emergency department chief complaint generalized weakness associated with lightheadedness dizziness; in addition this is the Patient transferred to us from [facility] for concerns of heart block. He has a history of significant past medical problems including end-stage renal disease, dialysis dependent, was last dialyzed two days ago. He has a tunneled dialysis catheter in his left chest and no peripheral shunt. Patient presented there with a complaint of sudden dizziness, lightheadedness, and could not stand up. He had a prior history of occasional hypotension but was unable to check his blood pressure at home and called paramedics. On arrival he was found to have a normal blood pressure which has remained normal throughout his stay at the transferring facility, however heart rate has been in the 35-55 range. He has had a baseline underlying atrial fibrillation which is chronic for him, interspersed with periods of third-degree heart block. Patient has maintained blood pressure and has been mentating well throughout his stay there and has not required any outside pacing. He is status post Maze procedure at an outside facility in August and we do not have records. Pt is anticoagulated. At the transferring hospital the patient was found to have a creatinine greater than nine, potassium of 7.3 at around 11:30 a.m.. He had received albuterol and Kayexalate prior to contact with this hospital, and subsequently given insulin as well to help with the hyperkalemia. No repeat value ordered.On arrival, the patient tells me he is asymptomatic at this time. He has no chest pain, no dizziness, no shortness of breath. He has had no lower extremity edema. No symptoms at this time. Emergency department she was evaluated by physician and after consultation with joint supervisor and energy rater decision was made to admit patient for further evaluation and treatment, no additional complaint or concern."The patient's serum potassium normalized by the afternoon of the - 4.3 the patient is heart rate did improve however he went into AFib RVR on of the heart rate was upwards of 160s was started on diltiazem drip and amiodarone drip however this was discontinued by the lumber racker of the as the patient converted to sinus rhythm in his heart rate remained controlled during hospitalization the patient was placed back on p.o. amiodarone 200 mg twice a day. The patient received hemodialysis treatments during hospitalization. The patient's blood sugars were controlled during hospitalization blood glucose range from 80s to the 180s on 20 units of Lantus at night. Gen. No acute distress alert and oriented 4 Lungs clear to ascultation bilaterally, no wheezes rales or rhonchi appreciated Heart normal sinus rhythm no murmurs rubs or clicks noted Abdomen soft nontender bowel sounds are normoactive Lower extremities no clubbing cyanosis, nor edema appreciated left, right BKA The patient felt ready to be discharged and was medically cleared to be discharged on 12/30/2024 I reiterated to the patient importance of keeping his dialysis appointments The patient was seen and evaluated on day of discharge. Time spent on discharge 40 minutes *Problems/Diagnosis: (1) Hyperkalemia (2) Complete atrioventricular block Status: Acute (3) ESRD on dialysis Status: Acute Total Time Spent on D/C: > 30 Minutes Date of Service: Dec 30, 2024 Billing Provider: BRITTANY VERDIN DO Common Visit Codes: [id number]/OBS DISCH DAY >30min BRITTANY VERDIN DO Dec 30, 2024 19:18
== END 2024-12-30 11:24 | disposition home or self-care (01) | DRG 422 ==
LOC: ER 14:02 → ED HOLD 15:01 → PCU 3S 16:27
PROVIDERS: ADMIT Family Medicine; ATTEND Family Medicine
PROC: 5A1D70Z Performance of Urinary Filtration, Intermittent, Less than 6 Hours Per Day (ICD-10-PCS; principal; 2024-12-26)
PROC: 5A1D70Z Performance of Urinary Filtration, Intermittent, Less than 6 Hours Per Day (ICD-10-PCS; 2024-12-27)
PROC: 5A1D70Z Performance of Urinary Filtration, Intermittent, Less than 6 Hours Per Day (ICD-10-PCS; 2024-12-28)
PROC: 5A1D70Z Performance of Urinary Filtration, Intermittent, Less than 6 Hours Per Day (ICD-10-PCS; 2024-12-29)
DX: E87.5 Hyperkalemia (principal); E86.1 Hypovolemia; I13.2 Hypertensive heart and chronic kidney disease with heart failure and with stage 5 chronic kidney disease, or end stage renal disease; I44.2 Atrioventricular block, complete; N18.6 End stage renal disease; I48.21 Permanent atrial fibrillation; E11.22 Type 2 diabetes mellitus with diabetic chronic kidney disease; E78.00 Pure hypercholesterolemia, unspecified; Z99.2 Dependence on renal dialysis; Z79.01 Long term (current) use of anticoagulants; J44.89 Other specified chronic obstructive pulmonary disease; F10.10 Alcohol abuse, uncomplicated; G89.4 Chronic pain syndrome; I49.8 Other specified cardiac arrhythmias; I25.10 Atherosclerotic heart disease of native coronary artery without angina pectoris; K21.9 Gastro-esophageal reflux disease without esophagitis; Z79.4 Long term (current) use of insulin; Z79.899 Other long term (current) drug therapy; Z88.0 Allergy status to penicillin; Z89.511 Acquired absence of right leg below knee; Z90.49 Acquired absence of other specified parts of digestive tract
CPT/HCPCS: 36415; 71045; 80047; 80048; 80053; 80061; 80076; 82948; 83735; 83880; 84100; 84132; 84439; 84443; 84484; 85008; 85025; 85610; 85730; 87081; 87340; 93005; 93306; 94640; 94760; 97161; 97530; 99285; A4615; A6449; E1594; G0257; G0378; J0282; J1644; J1815; J2270; J2405; J2765; J3490; J7030; J7060